=== PATIENT | female | born 1965 | race Caucasian/White ===

== ENCOUNTER 2017-10-02 14:30 | Outpatient (RCR) | payer MEDICARE, MEDICAID ==
[~2017-10-02 14:30] MED LIST: AUG875 PO; CAR200 PO; MELO-150 PO; [UNRECOGNIZED DRUG - CODE] PO
--- NOTE | 2017-10-02 16:37 | PT INITIAL EVALUATION ---
MEDICAL DIAGNOSIS: L) LE ulceration TREATMENT DIAGNOSIS: L) LE ulcerations DATE OF ONSET: 09/01/17 SUBJECTIVE: . Pt reports that she presented to Dr. Ruiz on September 01 with blisters on her L) LE d/t lymphedema. She reports that the blisters were aspirated but then she subsequently developed wounds on the L) LE. Pt reports that she has been treating the wounds at home with supplies left over from previous wound care treatments. She reports that she was diagnosed with lymphedema in 2012 and was treated that year, she has worn short stretch wraps since that time. She also has a referral for lymphedema treatment at this time , that will begin in October 2017. REHAB PROBLEM LIST: Open wounds L) LE, bilateral lymphedema changes PREVIOUS MEDICAL HISTORY: HTN, Obesity, h/o clubfeet surgery OCCUPATION: OBJECTIVE: Wound Measurements: L) lateral moreno: 2.4 cm L x 2.1 cm D x0.3 cm D L) anterior moreno: 8.5 cm L x 7.5 cm W x 0.1 cm D L) posterior medial calf: 6 cm L x 6 cm W x 0.1 cm D Circumferential Measurements-- L) LE: superior to malleoli: 34 cm mid calf: 53 cm R) LE with obvious edema as well, this was not assessed d/t extensive stockings in place. ASSESSMENT: Pt presents with short stretch bandages present on bilateral LEs, she reports that she has worn these everyday since 2012. Wounds present on L) LE , with superabsorbent pads covering the ulcerations. Partial thickness breakdown present on the anterior and posterior moreno with small amounts of slough on the medial, posterior side. Deeper ulceration present on the lateral calf with increased slough. PT completed conservative, selective debridement of non-viable tissue and slough with tweezers to the depth of the subcutaneous tissue. Wound covered with calcium alginate and all wounds covered with a super absorbent pad. PT donned pt's short stretch bandages on the L) LE. Pt will benefit from skilled PT wound care to included sharps debridement as well as advanced wound care product selection and application. She will benefit from specific therapy to manage her lymphatic needs as well. Short Term Goals 1: Pt to maintain dry, clean and intact dressing between visits. 2: Wounds to demonstrate 100% granulation tissue 3: Wounds to gradually epithelialize from edges inward and demonstrate 100% closure 4: Pt to obtain proper care for bilateral lymphedema Patient's Goals: Wound healing PLAN: Patient to be seen for skilled PT wound care to included sharps debridement as well as advanced wound care product selection and [id number]/ Week for up to 90 days Thank you for this referral. If you have any questions, comments, or concerns about this report or plan, please contact me at . Blanquita Reynolds, PT, DPT MTDD
--- NOTE | 2017-10-06 13:08 | PT PLAN OF CARE ---
Physician: Dr. Ruiz Patient is being seen: Samra Soliz Therapist: Blanquita Reynolds, PT, DPT Medical Diagnosis: L) LE ulceration Treatment Diagnosis: L) LE ulcerations Date of Onset: 09/01/17 Date of Initial Evaluation: 10/02/17 Date patient was last seen: 10/02/17 Number of treatments: 1 Number of cancellations/No shows:1 INTERVENTIONS: Pt was seen for initial wound care evaluation and treatment which included skilled sharps debridement as well as advanced wound care product selection and application. Short Term Goals 1: Pt to maintain dry, clean and intact dressing between visits. 2: Wounds to demonstrate 100% granulation tissue 3: Wounds to gradually epithelialize from edges inward and demonstrate 100% closure 4: Pt to obtain proper care for bilateral lymphedema Patient's Goals: Wound healing Status of Patient's Goals: Not met Patient Compliance: Poor Prognosis: Fair Reasons for continuing therapy: The patient was offered the only wound care appt time that would allow the patient to also receive lymphedema treatment. She reported that there was no way that she could accommodate a morning appointment time. The pt also reported that she could not arrange transportation to receive wound care until October. The patient requested that her [facility] company take care of wound care. This PT coordinated care with both [facility] and Dr. Ruiz's office in order to ensure that the patient is approved to receive [facility] wound care services. All parties were agreeable. It is planned to attempt to coordinate OP wound care services in October 2017 to allow the patient to receive lymphedema treatment as well. Thank you for this referral. If you have any questions, comments, or concerns about this report or plan, please contact me at . Blanquita Reynolds, PT, DPT [facility]
== END 2017-10-02 18:00 | disposition home or self-care (01) ==
LOC: PT 14:30
PROVIDERS: ATTEND Family Medicine
DX: L03.116 Cellulitis of left lower limb (principal); I89.0 Lymphedema, not elsewhere classified; L97.821 Non-pressure chronic ulcer of other part of left lower leg limited to breakdown of skin; I10 Essential (primary) hypertension; E66.9 Obesity, unspecified
CPT/HCPCS: 97161

== ENCOUNTER 2017-12-20 13:45 | Inpatient (IN) | payer MEDICARE, MEDICAID ==
[~2017-12-20] VITALS: Ht 167.6 cm; Wt 137.2 kg
[~2017-12-20 13:45] MED LIST changes: -DICL100G39 TOP; -GLUC1TAB35 PO; -MULT-834 PO; -[UNRECOGNIZED DRUG - OTHER] PO
--- NOTE | 2017-12-20 13:53 | ER Report ---
History and Physical Time Seen By MD: 13:53 Hx. of Stated Complaint: patient reports 6/10 right lower quadrant pain that started this morning. HPI/ROS CHIEF COMPLAINT: Abdominal pain HISTORY OF PRESENT ILLNESS: This is a 52-year-old female who presents to the emergency department via EMS for right sided abdominal pain. Patient states that at noon today she developed some right mid to lower quadrant abdominal pain that goes to the back. Patient states she's had 2 episodes of emesis and has had some nausea, no diarrhea. No aches or chills. No fevers, chest pain or shortness of breath. No rashes or headaches. No dysuria. REVIEW OF SYSTEMS: Constitutional: No fever, no chills. Eyes: No discharge. ENT: No sore throat. Cardiovascular: No chest pain, no palpitations. Respiratory: No cough, no shortness of breath. Gastrointestinal: As above. Genitourinary: No hematuria. Musculoskeletal: No back pain. Skin: No rashes. Neurological: No headache. Allergies: Coded Allergies: Penicillins (Verified Allergy, Unknown, 12/20/17) Sulfa (Sulfonamide Antibiotics) (Verified Allergy, Unknown, 12/20/17) amoxicillin (Verified Allergy, Unknown, 12/20/17) Home Meds Reported Medications Glucosamine/Msm/Chondroitin A (GLUCOSAMINE CHONDROIT MSM TAB) 1 Each Tablet, 1 TAB PO TID 12/20/17 [axo] No Conflict Check, 1 TAB PO BID "pumpkin tablet for bladder control" 12/20/17 Multivit, Iron, Min #5, Fa (STROVITE FORTE CAPLET) 1 Each Tablet, 1 EACH PO QDAY 12/20/17 Diclofenac Sodium 1% Gel (VOLTAREN 1% GEL) 100 Gm Gel..gram., 2-4 GM TOP QDAY 12/20/17 Meloxicam (Mobic) 15 Mg Tablet, 1 TAB PO BID 10/23/12 Lisinopril/Hydrochlorothiazide (Prinzide 10/12.5 Mg Tablet) 1 Tab Tablet, 1 TAB PO DAILY 10/23/12 Carbamazepine (TEGretol (OR EQUIV)) 200 Mg Tab, 200 MG PO TID 10/23/12 Discontinued Reported Medications Amoxicillin/Clavulanate K (Augmentin) 875 Mg Tab, 875 MG PO BIDBS, #20 10/23/12 Past Medical/Surgical History Patient has a past medical and surgical history of seizures, hypertension, hip dysplasia, chronic pain, wears glasses, lymphedema. Reviewed Nurses Notes: Yes Hx Smoking: No Hx Substance Use Disorder: No Hx Alcohol Use: No Constitutional Vital Sign - Last 24 Hours 12/20/17 12/20/17 12/20/17 12/20/17 13:48 13:50 14:00 14:15 Temp 97.8 Pulse 74 Resp 20 B/P (MAP) 143/84 143/84 (103) 118/96 (103) Pulse Ox 93 93 O2 Delivery Room Air 12/20/17 12/20/17 12/20/17 12/20/17 15:00 15:15 15:30 15:35 Pulse 82 70 B/P (MAP) 119/92 (101) 141/100 (114) Pulse Ox 93 98 12/20/17 12/20/17 12/20/17 12/20/17 16:00 16:05 16:30 16:35 Pulse 91 93 B/P (MAP) 128/104 (112) 136/88 (104) Pulse Ox 90 95 12/20/17 12/20/17 12/20/17 12/20/17 16:40 16:55 17:00 17:10 Pulse 94 102 87 B/P (MAP) 147/72 (97) Pulse Ox 94 87 97 Intake and Output 12/20/17 12/20/17 12/21/17 15:00 23:00 07:00 Intake Total 1000 ml Output Total 30 ml Balance -30 ml 1000 ml Physical Exam General Appearance: The patient is alert, has no immediate need for airway protection and no signs of toxicity, appears anxious. Eyes: Pupils equal and round no pallor or injection, wearing glasses. ENT, Mouth: Mucous membranes are dry, geographic tongue. Respiratory: There are no retractions, lungs are clear to auscultation. Cardiovascular: Regular rate and rhythm, systolic murmur, no clicks or rubs. Gastrointestinal: Abdomen is very round, soft and right sided abdominal pain, suprapubic pain, no masses, bowel sounds normal. No CVA tenderness. Neurological: Alert and oriented 4. Moving all extremities. No focal neural deficits. Following all commands. Skin: Warm and dry, no rashes. Musculoskeletal: Neck is supple non tender. Extremities are nontender, lymphedema bilateral lower extremities, normal for patient, Alberto wrap's to bilateral lower extremities. DIFFERENTIAL DIAGNOSIS: After history and physical exam differential diagnosis was considered for abdominal pain in a female including but not limited to ovarian cyst, pelvic inflammatory disease, ovarian torsion, urinary tract infection, kidney stone and appendicitis. Medical Decision Making Data Points Result Diagram: 12/20/17 1340 12/20/17 1340 Laboratory Hematology Test 12/20/17 13:40 12/20/17 14:55 Red Blood Count 5.17 M/uL (4.17-5.56) Mean Corpuscular Volume 88.1 fL (80.0-96.0) Mean Corpuscular Hemoglobin 29.8 pg (26.0-33.0) Mean Corpuscular Hemoglobin Concent 33.8 g/dL (32.0-36.0) Red Cell Distribution Width 14.9 % (11.5-14.5) Mean Platelet Volume 8.6 fL (7.2-11.1) Neutrophils (%) (Auto) 83.9 % (39.4-72.5) Lymphocytes (%) (Auto) 10.4 % (17.6-49.6) Monocytes (%) (Auto) 5.1 % (4.1-12.4) Eosinophils (%) (Auto) 0.0 % (0.4-6.7) Basophils (%) (Auto) 0.6 % (0.3-1.4) Nucleated RBC Relative Count (auto) 0.0 /100WBC Neutrophils # (Auto) 6.7 K/uL (2.0-7.4) Lymphocytes # (Auto) 0.8 K/uL (1.3-3.6) Monocytes # (Auto) 0.4 K/uL (0.3-1.0) Eosinophils # (Auto) 0.0 K/uL (0.0-0.5) Basophils # (Auto) 0.0 K/uL (0.0-0.1) Nucleated RBC Absolute Count (auto) 0.00 K/uL Peripheral Blood Smear No Y/N Sodium Level 139 mmol/L (137-145) Potassium Level 4.1 mmol/L (3.5-5.0) Chloride Level 100 mmol/L (98-107) Carbon Dioxide Level 24 mmol/L (22-31) Blood Urea Nitrogen 26 mg/dl (7-18) Creatinine 0.70 mg/dl (0.52-1.04) Glomerular Filtration Rate Calc > 60.0 Random Glucose 142 mg/dl (75-110) Calcium Level 9.8 mg/dl (8.4-10.2) Total Bilirubin 0.5 mg/dl (0.2-1.3) Aspartate Amino Transf (AST/SGOT) 23 U/L (0-35) Alanine Aminotransferase (ALT/SGPT) 35 U/L (0-56) Alkaline Phosphatase 148 U/L (0-126) Total Protein 8.1 gm/dl (6.3-8.2) Albumin 4.1 g/dl (3.5-5.0) Amylase Level 71 U/L (0-110) Lipase 77 U/L (23-300) Urine Color Yellow Urine Clarity Cloudy Urine pH 8.0 pH (4.8-9.5) Urine Specific [place] 1.017 Urine Protein 30 mg/dL (NEGATIVE) Urine Glucose (UA) Negative mg/dL (NEGATIVE) Urine Ketones Negative mg/dL (NEGATIVE) Urine Blood Large (NEGATIVE) Urine Nitrite Positive (NEGATIVE) Urine Bilirubin Negative (NEGATIVE) Urine Urobilinogen Negative mg/dL (0.2-1.9) Urine Leukocyte Esterase Trace (NEGATIVE) Urine RBC 27 /HPF (0-2/HPF) Urine WBC 14 /HPF (0-5/HPF) Urine Squamous Epithelial Cells None /LPF (NONE-FEW) Urine Bacteria Negative /HPF (NONE-FEW) Urine Mucus Few /HPF (NONE-FEW) Chemistry Test 12/20/17 13:40 12/20/17 14:55 White Blood Count 7.9 k/uL (4.5-11.0) Red Blood Count 5.17 M/uL (4.17-5.56) Hemoglobin 15.4 g/dL (12.0-16.0) Hematocrit 45.5 % (34.0-47.0) Mean Corpuscular Volume 88.1 fL (80.0-96.0) Mean Corpuscular Hemoglobin 29.8 pg (26.0-33.0) Mean Corpuscular Hemoglobin Concent 33.8 g/dL (32.0-36.0) Red Cell Distribution Width 14.9 % (11.5-14.5) Platelet Count 162 K/uL (150-450) Mean Platelet Volume 8.6 fL (7.2-11.1) Neutrophils (%) (Auto) 83.9 % (39.4-72.5) Lymphocytes (%) (Auto) 10.4 % (17.6-49.6) Monocytes (%) (Auto) 5.1 % (4.1-12.4) Eosinophils (%) (Auto) 0.0 % (0.4-6.7) Basophils (%) (Auto) 0.6 % (0.3-1.4) Nucleated RBC Relative Count (auto) 0.0 /100WBC Neutrophils # (Auto) 6.7 K/uL (2.0-7.4) Lymphocytes # (Auto) 0.8 K/uL (1.3-3.6) Monocytes # (Auto) 0.4 K/uL (0.3-1.0) Eosinophils # (Auto) 0.0 K/uL (0.0-0.5) Basophils # (Auto) 0.0 K/uL (0.0-0.1) Nucleated RBC Absolute Count (auto) 0.00 K/uL Peripheral Blood Smear No Y/N Glomerular Filtration Rate Calc > 60.0 Calcium Level 9.8 mg/dl (8.4-10.2) Total Bilirubin 0.5 mg/dl (0.2-1.3) Aspartate Amino Transf (AST/SGOT) 23 U/L (0-35) Alanine Aminotransferase (ALT/SGPT) 35 U/L (0-56) Alkaline Phosphatase 148 U/L (0-126) Total Protein 8.1 gm/dl (6.3-8.2) Albumin 4.1 g/dl (3.5-5.0) Amylase Level 71 U/L (0-110) Lipase 77 U/L (23-300) Urine Color Yellow Urine Clarity Cloudy Urine pH 8.0 pH (4.8-9.5) Urine Specific Hull 1.017 Urine Protein 30 mg/dL (NEGATIVE) Urine Glucose (UA) Negative mg/dL (NEGATIVE) Urine Ketones Negative mg/dL (NEGATIVE) Urine Blood Large (NEGATIVE) Urine Nitrite Positive (NEGATIVE) Urine Bilirubin Negative (NEGATIVE) Urine Urobilinogen Negative mg/dL (0.2-1.9) Urine Leukocyte Esterase Trace (NEGATIVE) Urine RBC 27 /HPF (0-2/HPF) Urine WBC 14 /HPF (0-5/HPF) Urine Squamous Epithelial Cells None /LPF (NONE-FEW) Urine Bacteria Negative /HPF (NONE-FEW) Urine Mucus Few /HPF (NONE-FEW) Urinalysis Test 12/20/17 14:55 Urine Color Yellow Urine Clarity Cloudy Urine pH 8.0 pH (4.8-9.5) Urine Specific Hull 1.017 Urine Protein 30 mg/dL (NEGATIVE) Urine Glucose (UA) Negative mg/dL (NEGATIVE) Urine Ketones Negative mg/dL (NEGATIVE) Urine Blood Large (NEGATIVE) Urine Nitrite Positive (NEGATIVE) Urine Bilirubin Negative (NEGATIVE) Urine Urobilinogen Negative mg/dL (0.2-1.9) Urine Leukocyte Esterase Trace (NEGATIVE) Urine RBC 27 /HPF (0-2/HPF) Urine WBC 14 /HPF (0-5/HPF) Urine Squamous Epithelial Cells None /LPF (NONE-FEW) Urine Bacteria Negative /HPF (NONE-FEW) Urine Mucus Few /HPF (NONE-FEW) EKG/Imaging Imaging Location: [facility] - [place] Patient: Samra Soliz : 1965 Visit/Account:[id number] Date of Sevice: 12/20/2017 CT abdomen and pelvis with IV contrast Indication: Right-sided abdominal pain. Comparison: None available. . Technique: Axial CT images were obtained through the abdomen and pelvis during injection of nonionic iodinated intravenous contrast. Reformatted coronal and sagittal images were also obtained. One of the following dose optimization techniques was utilized in the performance of this exam: Automated exposure control; adjustment of the mA and/ or kV according to the patient's size; or use of an iterative reconstruction technique. Specific details can be referenced in the facility's radiology CT exam operational policy. Contrast: 100 ml of Isovue-370 IV contrast. Findings: Lower lung arceo: Limited views lower lung field are unremarkable. Liver: No focal parenchymal abnormality of the liver. Biliary: Gallbladder appears unremarkable as well as the intra and extra hepatic biliary system. Pancreas: Normal appearance. Spleen: Normal appearance. Adrenal glands: Unremarkable. Kidneys / retroperitoneum: Both kidneys show several stones in the collecting system. The largest on left is 7 mm and right 6 mm. The right kidney does show mild hydronephrosis and perinephric stranding due to a proximal right ureteral stone measuring 4.5 mm. The remaining right ureter and the left ureter are unremarkable. One of the left renal stones in the proximal renal pelvis. The kidneys show no discrete lesions. Bowel / peritoneum / mesenteries: Sigmoid colon shows a few diverticula without pericolonic inflammation. The remaining gastrointestinal tract visualized, including the appendix, within normal limits. Stomach is unremarkable. No free air, free fluid, fluid collections or areas of inflammation. Small umbilical hernia containing fat. Lymph node assessment: No pathologic adenopathy identified. Pelvic structures: Appear unremarkable. Vessels: No significant atherosclerotic calcifications seen throughout a nonaneurysmal abdominal aorta and branches. Musculoskeletal / Body wall: No acute or aggressive osseous abnormality. The left proximal femur does show posttraumatic changes with mild chronic superior subluxation and significant degenerative changes. Degenerative change seen in the spine. The anterior abdominal subcutaneous fat does show several small varices. IMPRESSION: 1. There is a 4.5 mm stone in the proximal right ureter causing mild right hydronephrosis and mild nephropathy changes. 2. Both kidneys otherwise show other nonobstructing calculi. 3. Sigmoid diverticulosis without radiographic indication diverticulitis. 4. Other chronic findings as above. Report Dictated By: Cristino Alejo at 12/20/2017 3:13 PM Report E-Signed By: Cristino Alejo at 12/20/2017 3:20 PM WSN:[id number] ED Course/Re-evaluation Clinical Indication for ER IV: Hydration, IV Access ED Course The patient was admitted to room. History of physical were obtained. Differential diagnoses were considered. An IV was started. A CBC, CMP and cathetered UA were obtained. Laboratory studies unremarkable. Catheter UA borderline diagnostic for urinary tract infection and the urine was sent for culture, she is not complaining of dysuria. I did review this with Dr. Pedersen as noted below he said go ahead and hold off on treating the patient with antibiotics until the culture comes back. A CT of the abdomen pelvis revealed a 4.5 mm kidney stone in the right ureter with several stones in the kidneys. The right kidney showing hydronephrosis. Patient was given 30 mg IV Toradol. A 1 L normal saline bolus. Patient was also given 50 g IV fentanyl. She did have some relief, however the pain did return, she was nervous about pain control as well her caregiver, therefore I did contact Dr. Turpin who has agreed to admit the patient with Dr. Cohen as noted below, for pain control. I did review the results and the plan with the patient and her caregiver. They are in agreement with this plan of care. 12/20/2017 3:35:37 pm I did speak with Dr. Pedersen the urologist monitoring coordinator today regarding the patient's case he feels if her pain is tolerable we can send her home and have her follow-up with him in his office this week. 12/20/2017 4:25:08 pm I did speak with Dr. Pedersen again regarding the patient' s case. He was concerned that her medical problems with need a hospitalist consultation and admission. He is going to call Dr. Cohen for an admission. I did review this with the patient. Patient's and her caregiver at the bedside and are concerned that has her pain is coming back as it is now that they will be able to manage the pain. There is also concerned that she'll have some mobility issues related to the pain she does have lymphedema to the lower extremities which also inhibits her mobility. Dr. Reveles has agreed to admit the patient. Dr. Pedersen will consult with Dr. Cohen the hospitalist on-call. Patient will be admitted to medical surgical unit for renal calculi and intractable pain. Decision to Disposition Date: Dec 20, 2017 Decision to Disposition Time: 16:10 Depart Departure Latest Vital Signs Vital Signs Date Time Temp Pulse Resp B/P (MAP) Pulse Ox O2 Delivery O2 Flow Rate FiO2 12/20/17 17:10 87 97 12/20/17 17:00 147/72 (97) 12/20/17 13:48 97.8 20 Room Air Impression: Primary Impression: Renal calculus, right Additional Impression: Intractable pain Condition: Improved Disposition: Admitted from ER Referrals: BURKE SHANE DO (PCP) Patient Instructions: Kidney Stones (ED) Additional Instructions: Drink plenty of fluids. Get plenty of rest. Follow up with Dr. Reveles this week for reevaluation. Continue taking your regular medications. Continue taking your NSAID as directed, for additional pain relief take 1000mg of Tylenol up to three times a day. Take the Toradol as needed for your pain. May return to the ED as for worsening symptoms or any other concerns. Problem Qualifiers MONROE SWARTZ METER REPAIRER-BC Dec 20, 2017 13:53
[2017-12-20] MEDS ORDERED: DICL100G39 TOP (13:56)
[2017-12-20] MEDS ORDERED: fentaNYL CITR 100 MCG/2 ML AMP IVP ONE (14:05)
[2017-12-20] MEDS ORDERED: ONDANSETRON 4 MG/2 ML VIAL IVP ONE (14:05)
[2017-12-20] MEDS ORDERED: EMS NS 0.9%(*) 1000 ML BAG 1,000 ML IV ONE (14:10)
[2017-12-20 14:13] LABS: PLATELET COUNT, AUTOMATED 162 K/uL (150-450)
[2017-12-20] MEDS ORDERED: IOPAMIDOL 76% 100 ML INFUS BTL 100 ML ONE (14:30)
[2017-12-20] MEDS ORDERED: KETOROLAC 30 MG/ML VIAL IVP ONE (15:15)
--- NOTE | 2017-12-20 15:25 | RADIOLOGY IMAGING REPORT ---
[place] [facility] [place] Samra Soliz : 1965 MR: [id number] V: [id number] EXAM DATE: ORDERING PHYSICIAN: MONROE SWARTZ TECHNOLOGIST: [place] [facility] [place]: Samra Soliz : 1965 Visit/Account:[id number] Date of Sevice: 12/20/2017 CT abdomen and pelvis with IV contrast Indication: Right-sided abdominal pain. Comparison: None available. . Technique: Axial CT images were obtained through the abdomen and pelvis during injection of nonioni c iodinated intravenous contrast. Reformatted coronal and sagittal images were also obtained. One of the following dose optimization techniques was utilized in the performance of this exam: Autom ated exposure control; adjustment of the mA and/or kV according to the patient's size; or use of an i terative reconstruction technique. Specific details can be referenced in the facility's radiology C T exam operational policy. Contrast: 100 ml of Isovue-370 IV contrast. Findings: Lower lung arceo: Limited views lower lung field are unremarkable. Liver: No focal parenchymal abnormality of the liver. Biliary: Gallbladder appears unremarkable as well as the intra and extra hepatic biliary system. Pancreas: Normal appearance. Spleen: Normal appearance. Adrenal glands: Unremarkable. Kidneys / retroperitoneum: Both kidneys show several stones in the collecting system. The largest on left is 7 mm and right 6 mm. The right kidney does show mild hydronephrosis and perinephric stranding due to a proximal right ureteral stone measuring 4.5 mm. The remaining right ureter and the left ure ter are unremarkable. One of the left renal stones in the proximal renal pelvis. The kidneys show no discrete lesions. Bowel / peritoneum / mesenteries: Sigmoid colon shows a few diverticula without pericolonic inflammat ion. The remaining gastrointestinal tract visualized, including the appendix, within normal limits. S tomach is unremarkable. No free air, free fluid, fluid collections or areas of inflammation. Small umbilical hernia containin g fat. Lymph node assessment: No pathologic adenopathy identified. Pelvic structures: Appear unremarkable. Vessels: No significant atherosclerotic calcifications seen throughout a nonaneurysmal abdominal aort a and branches. Musculoskeletal / Body wall: No acute or aggressive osseous abnormality. The left proximal femur does show posttraumatic changes with mild chronic superior subluxation and significant degenerative bailey es. Degenerative change seen in the spine. The anterior abdominal subcutaneous fat does show several small varices. IMPRESSION: 1. There is a 4.5 mm stone in the proximal right ureter causing mild right hydronephrosis and mild ne phropathy changes. 2. Both kidneys otherwise show other nonobstructing calculi. 3. Sigmoid diverticulosis without radiographic indication diverticulitis. 4. Other chronic findings as above. Report Dictated By: Cristino Alejo at 12/20/2017 3:13 PM Report E-Signed By: Cristino Alejo at 12/20/2017 3:20 PM WSN:[id number]
[2017-12-20] MEDS ORDERED: ONDANSETRON 4 MG/2 ML VIAL IVP PRN (17:50)
[2017-12-20] MEDS ORDERED: MEPERIDINE 10 MG/ML 30 ML PCA IVP PRN (17:50)
[2017-12-20] MEDS ORDERED: NALOXONE HCL 0.4 MG/ML VIAL IVP PRN (17:50)
[2017-12-20 17:52] VITALS: BP 130/64
[2017-12-20] MEDS ORDERED: TAMSULOSIN HCL 0.4 MG CAP PO ONE (18:05)
[2017-12-20] MEDS: NS(*) 0.9% 1000 ML BAG 1,000 ML IV PRN (18:16)
[2017-12-20] MEDS ORDERED: GLUC1TAB35 PO (18:35)
[2017-12-20] MEDS ORDERED: MULT-834 PO (18:35)
[2017-12-20] MEDS ORDERED: [UNRECOGNIZED DRUG - OTHER] PO (18:35)
[2017-12-20] MEDS ORDERED: KETOROLAC 15 MG/ML VIAL IVP PRN (19:30)
[2017-12-20] MEDS ORDERED: ENALAPRILAT 1.25 MG/ML VIAL IVP PRN (19:30)
--- NOTE | 2017-12-20 19:41 | Hospitalist Consultation ---
History of Present Illness Requesting Physician Slava Reason for Consult Medication management History of Present Illness 52yo female with a h/o LE lymphedema, seizures and HTN who was admitted for right sided abdominal pain and found to have a 4.5mm ureteral stone on the right causing mild hydronephrosis and mild nephropathy changes. When she got up to the floor she had a fever to 103.8 degrees. She denies cough and any skin changes. She had her LE leg wraps done this morning. She reports a chronic erythematous area on the left moreno. She denies a h/o CAD, COPD, CHF, asthma. She denies chest pain with activity, but she is very sedentary (i.e. uses a lift chair for stairs). She has never smoked. History Problems: (1) HTN (hypertension) Status: Chronic (2) Seizure disorder Status: Chronic (3) Lymphedema of both lower extremities Status: Chronic (4) History of foot surgery (5) Hip dysplasia Home Meds Reported Medications Glucosamine/Msm/Chondroitin A (GLUCOSAMINE CHONDROIT MSM TAB) 1 Each Tablet, 1 TAB PO TID 12/20/17 [axo] No Conflict Check, 1 TAB PO BID "pumpkin tablet for bladder control" 12/20/17 Multivit, Iron, Min #5, Fa (STROVITE FORTE CAPLET) 1 Each Tablet, 1 EACH PO QDAY 12/20/17 Diclofenac Sodium 1% Gel (VOLTAREN 1% GEL) 100 Gm Gel..gram., 2-4 GM TOP QDAY 12/20/17 Meloxicam (Mobic) 15 Mg Tablet, 1 TAB PO BID 10/23/12 Lisinopril/Hydrochlorothiazide (Prinzide 10/12.5 Mg Tablet) 1 Tab Tablet, 1 TAB PO DAILY 10/23/12 Carbamazepine (TEGretol (OR EQUIV)) 200 Mg Tab, 200 MG PO TID 10/23/12 Discontinued Reported Medications Amoxicillin/Clavulanate K (Augmentin) 875 Mg Tab, 875 MG PO BIDBS, #20 10/23/12 Allergies: Coded Allergies: Penicillins (Verified Allergy, Unknown, 12/20/17) Sulfa (Sulfonamide Antibiotics) (Verified Allergy, Unknown, 12/20/17) amoxicillin (Verified Allergy, Unknown, 12/20/17) Other Social/Family Hx No tobacco or alcohol use. Hx Smoking: No Hx Alcohol Use: No Hx Substance Use Disorder: No Review of Systems All Systems Reviewed/Normal: Yes, Except as Noted Exam Vital Signs Vital Signs Date Time Temp Pulse Resp B/P (MAP) Pulse Ox O2 Delivery O2 Flow Rate FiO2 12/20/17 17:52 103.2 107 18 130/64 (86) 97 Nasal Cannula 1.0 General Appearance: Alert, Awake, No Acute Distress (She seems a bit sleepy) Neuro: No Gross deficits Eyes: PERRLA Cardiovascular: Other (tachy, regular) Respiratory: Clear to Auscultation GI: Abd Soft and Non-Tender : No CVA Tenderness Extremities: Edema (No pitting edema, but legs are diffusely edematous from shins to feet. Left moreno has about a 10cm in width dark erythematous area that wraps around the moreno. It is warm, but she doesn't report much tenderness. There are some wounds on the shins with clear drainage.) Medical Decision Making Data Points Result Diagram: 12/20/17 1340 12/20/17 1340 Item Value Date Time Neutrophils (%) (Auto) 83.9 % H 12/20/17 1340 Lymphocytes (%) (Auto) 10.4 % L 12/20/17 1340 Monocytes (%) (Auto) 5.1 % 12/20/17 1340 Eosinophils (%) (Auto) 0.0 % L 12/20/17 1340 Random Glucose 142 mg/dl H 12/20/17 1340 Calcium Level 9.8 mg/dl 12/20/17 1340 Total Bilirubin 0.5 mg/dl 12/20/17 1340 Aspartate Amino Transf (AST/SGOT) 23 U/L 12/20/17 1340 Alanine Aminotransferase (ALT/SGPT) 35 U/L 12/20/17 1340 Alkaline Phosphatase 148 U/L H 12/20/17 1340 Urine Nitrite Positive H 12/20/17 1455 Urine Blood Large 12/20/17 1455 Urine Bilirubin Negative 12/20/17 1455 Urine Urobilinogen Negative mg/dL 12/20/17 1455 Urine Leukocyte Esterase Trace H 12/20/17 1455 Urine RBC 27 /HPF 12/20/17 1455 Urine WBC 14 /HPF 12/20/17 1455 Urine Squamous Epithelial Cells None /LPF 3/4/18 1455 Urine Bacteria Negative /HPF 12/20/17 1455 Urine Mucus Few /HPF 12/20/17 1455 EKG / Imaging EKG Interpretation Sinus tachycardia with diffuse T flattening. Poor R wave progression c/w ant/ sep SC vs lead placement. No previous to compare. Imaging CXR - No acute abnormalities. No previous to compare. Assessment and Plan Problems: (1) Pre-op evaluation Status: Acute Assessment & Plan: She is a low to moderate risk for cardiac complications secondary to age and deconditioned status. She has no worrisome symptoms or signs. No further testing needed. She is a low risk for pulmonary complications. She is a low to moderate risk for bleeding complications secondary to recent NSAID use. (2) Renal calculus, right Status: Acute Assessment & Plan: She has a ureteral stone causing mild hydronephrosis and has a fever to 103.8. Because of concern of infection, she is going to have a stent placed. She is to have cultures blood cultures drawn and Rocephin started. BP/P are stable. (3) Lymphedema of both lower extremities Status: Chronic Assessment & Plan: Her left moreno has a dark erythematous area that is warmer than other areas. The area was outlined. She reports that it is chronic. She has a number of wounds that are having clear drainage. Will ask PT to evaluate for wound care instructions. Because of the previous MRSA wound infection from 2012, will start Vancomycin. There are no draining areas that are concerning for infection, so will not put in contact isolation or culture. (4) Seizure disorder Status: Chronic Assessment & Plan: Continue Tegretol. (5) HTN (hypertension) Status: Chronic Assessment & Plan: Hold HCTZ/Lisinopril and use enalaprilat prn. Copies to: BURKE SHANE DO; IZZY CARRINGTON MD Venous Thromboembolism Antithrombotics Is Pt On Any Antithrombotics?: No Exam Sepsis Risk: No Definite Risk KANDY JIMENEZ MD Dec 20, 2017 19:41
--- NOTE | 2017-12-20 20:17 | EKG ---
FACILITY: [facility] PATIENT NAME: BRANDO GRAHAM : [id number] MR: [id number] V: [id number] EXAM DATE: ORDERING PHYSICIAN: KANDY JIMENEZ TECHNOLOGIST: Joey Duran Reason : Blood Pressure : / mmHG Vent. Rate : 109 BPM Atrial Rate : 109 BPM P-R Int : 122 ms QRS Dur : 092 ms QT Int : 336 ms P-R-T Axes : 036 051 036 degrees QTc Int : 452 ms Sinus tachycardia Low voltage QRS Possible Anterolateral infarct , age undetermined Diffuse, non-specific, T flattening No previous ECGs available Confirmed by KANDY JIMENEZ ([id number]) on 12/21/2017 7:32:33 AM Referred By: Confirmed By:KANDY JIMENEZ
[2017-12-20] MEDS ORDERED: ROCURONIUM BROM 10 MG/ML 10 ML ONE (20:19)
[2017-12-20] MEDS ORDERED: PROPOFOL EMUL(*) 10MG/ML 20 ML 20 ML ONE (20:19)
[2017-12-20] MEDS ORDERED: DEXAMETHASONE SOD 4 MG/ML VIAL ONE (20:19)
[2017-12-20] MEDS ORDERED: LIDOCAINE MPF 1% 5 ML VIAL ONE (20:19)
[2017-12-20] MEDS ORDERED: SUGAMMADEX SOD 200 MG/2 ML SDV ONE (20:19)
[2017-12-20] MEDS ORDERED: ONDANSETRON 4 MG/2 ML VIAL ONE (20:19)
[2017-12-20] MEDS ORDERED: fentaNYL CITR 100 MCG/2 ML AMP ONE (20:22)
[2017-12-20] MEDS: cefTRIAXone 2 GM VIAL IVP SCH (20:30)
[2017-12-20] MEDS ORDERED: NORMOSOL R SOLN(*) 1000 ML BAG 1,000 ML IV ONE (20:37)
[2017-12-20] MEDS ORDERED: FAMOTIDINE(*) 20MG/50ML PREMIX 50 ML IVPB ONE (20:37)
[2017-12-20] MEDS ORDERED: VANCOMYCIN IVPB ONE ×2 (21:00→23:05)
[2017-12-20] MEDS ORDERED: NS 0.9% IVPB ONE ×2 (21:00→23:05)
[2017-12-20] MEDS: carBAMazepine 200 MG TAB PO SCH ×2 (21:01→23:46)
--- NOTE | 2017-12-20 21:07 | RADIOLOGY IMAGING REPORT ---
FACILITY: [facility] PATIENT NAME: Samra Soliz : 1965 MR: [id number] V: [id number] EXAM DATE: ORDERING PHYSICIAN: KANDY JIMENEZ [place]CHNOLOGIST: [place] [facility] [place] : 1965 Visit/Account:[id number] Date of Sevice: 12/20/2017 PORTABLE CHEST: Indication: Fever. Technique: A single frontal film was obtained. Comparison: None. Skeletal and soft tissue structures: There are severe degenerative changes in the shoulders. On the r ight side, there appears to be anterior dislocation of the humeral head. Chronic degenerative changes are also noted in the thoracic spine. Heart and mediastinum: Within normal limits. Lung arceo: Well-expanded. No focal consolidation or volume loss. Pleural spaces: Unremarkable. Impression: No acute process is identified in the lung arceo. There appears to be anterior dislocati on of the right shoulder. Further clinical correlation is recommended. Report Dictated By: Evens Way MD at 12/20/2017 8:59 PM Report E-Signed By: Evens Way MD at 12/20/2017 9:03 PM WSN:[id number]
--- NOTE | 2017-12-20 22:14 | RADIOLOGY IMAGING REPORT ---
FACILITY: [facility] PATIENT NAME: Samra Soliz : 1965 MR: [id number] V: [id number] EXAM DATE: ORDERING PHYSICIAN: SHANIA CEDILLO TECHNOLOGIST: Location: [facility] Patient: Samra Soliz : 1965 Visit/Account:[id number] Date of Sevice: 12/20/2017 OR retrograde study: Indication: Right ureteral calculus. Technique: 13 images were submitted. Fluoroscopy time was 14 seconds. Comparison: CT scan from earlier the same day. Findings: The initial gun mechanic images demonstrate residual contrast in the right intrarenal collecting s tructures and right ureter from the earlier CT scan. There is moderate degenerative disc disease and scoliosis in the lower lumbar spine. There is severe dysplasia of the left hip. Subsequent images demonstrate a cystoscope in place, with a catheter and contrast in the right ureter and kidney. The final images demonstrate a right ureteral stent in satisfactory orientation. Refer to the operative report for full details. Impression: As above. Report Dictated By: Evens Way MD at 12/20/2017 10:06 PM Report E-Signed By: Evens Way MD at 12/20/2017 10:11 PM WSN:[id number]
[2017-12-20 22:25] VITALS: BP 84/46
[2017-12-20 22:45] VITALS: BP 79/37
[2017-12-20] MEDS ORDERED: NS(*) 0.9% 500 ML BAG 500 ML IV ONE ×2 (22:45→23:45)
[2017-12-20 23:15] VITALS: BP 83/49
[2017-12-20] MEDS ORDERED: MAG HYD/AL HYD/SIMETH 30ML UDC PO PRN (23:20)
[2017-12-20] MEDS ORDERED: OXYBUTYNIN CHL XL 5 MG TABCR PO PRN (23:20)
[2017-12-20 23:30] VITALS: BP 76/42
[2017-12-20] MEDS ORDERED: LEVOFLOXACIN/D5W*500 MG/100 ML 100 ML IVPB SCH (23:30)
[2017-12-20 23:45] VITALS: BP 81/46
[2017-12-21] VITALS (95 sets, daily range): BP systolic 68–125; BP diastolic 36–83
--- NOTE | 2017-12-21 03:25 | HISTORY AND PHYSICAL ---
DATE OF ADMISSION: December 20, 2017 CHIEF COMPLAINT Right flank pain secondary to renal colic. HISTORY OF PRESENT ILLNESS The patient is a 52-year-old white female who presented to the emergency room after sudden onset of right flank pain with associated nausea and vomiting. She was evaluated in the emergency room with a CT scan which revealed a 5 x 4 mm stone at the right proximal ureter with some mild hydronephrosis above this. She also had small perinephric edematous changes consistent with obstruction. In addition, she was noted to have 2 stones on the right lower pole and 2 on the left lower pole, the largest measuring 7 mm. The patient is now admitted for PROJECT INTERN pain control and IV fluid hydration with possible urologic intervention as indicated. 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 * Chronic bilateral lower extremity edema, left greater than right, with a history of MRSA on left lower extremity in 2012. * Hypertension. * Seizure disorder. * Urge incontinence. PAST SURGICAL HISTORY * Bilateral club foot repair. * Left wrist surgery. * Left eye surgery. ALLERGIES PENICILLIN, AMOXICILLIN, SULFA. CURRENT MEDICATIONS * Tegretol. * Voltaren. * Hydrochlorothiazide. * Lisinopril. * Mobic. SOCIAL HISTORY The patient lives in [place], [place], and is disabled. FAMILY HISTORY Notable for rheumatoid arthritis. REVIEW OF SYSTEMS The patient denies fevers or chills, gross hematuria, prior kidney stones, headaches, change in bowel habits, shortness of breath, productive cough, or chest pain. PHYSICAL EXAMINATION GENERAL: The patient is a 52-year-old, white, slightly obese female examined in the hospital room in her bed. HEENT: Normocephalic, atraumatic. She has corrective eyewear. Oropharynx is clear. CHEST: Normal with no wheezing. CARDIOVASCULAR: Regular rate and rhythm. ABDOMEN: Soft, obese. No masses are palpated. : Deferred. She does have an incontinent pad. EXTREMITIES: Both lower extremities are wrapped in clean gauze and are dry. Bilateral upper extremities reveal a dystrophic wrist. NEUROLOGIC: She is alert and oriented x3 and follows commands, grossly nonfocal. ASSESSMENT * 52-year-old white female with right renal colic from a 4 x 5 mm proximal renal stone with bilateral stones in both kidneys. She also has a history of urge incontinence. PLAN We will admit the patient for IV hydration, PROJECT INTERN pain control with possible urologic intervention as indicated. MTDD
[2017-12-21] MEDS: NS(*) 0.9% 1000 ML BAG 1,000 ML IV PRN ×4 (05:07→20:06)
[2017-12-21 05:46] LABS: PLATELET COUNT, AUTOMATED 77 K/uL (150-450)
--- NOTE | 2017-12-21 06:23 | OPERATIVE REPORT 1 ---
EVENT DATE: December 20, 2017 SURGEON: Abdoulaye Pedersen MD ANESTHESIOLOGIST: Natalio Rogers MD ANESTHESIA: General. PREOPERATIVE DIAGNOSIS Right proximal ureteral calculi with urinary tract infection. POSTOPERATIVE DIAGNOSIS Right proximal ureteral calculi with urinary tract infection. PROCEDURE PERFORMED 1. Cystoscopy. 2. Right retrograde pyelogram. 3. Right internal double J ureteral stent placement. ESTIMATED BLOOD LOSS Minimal. IV FLUIDS Crystalloid. DRAINS 6 Gabonese x 26 cm Contour stent on right and 16 Gabonese Murray catheter. PATHOLOGY Cold cup biopsy in 3 specimens to Pathology for permanent analysis. COMPLICATIONS None. CONDITION Patient taken to recovery room awake and in stable condition. STATEMENT OF MEDICAL NECESSITY Patient is a 52-year-old white female who presented to the emergency room on the morning of December 20, 2017 with the sudden onset of right flank pain with associated nausea and vomiting. At that time, a CT scan was performed, which revealed her to have a 4 x 5 mm proximal ureteral stone with proximal hydronephrosis of the right system. She was also noted to have two stones on the right lower pole and two stones on the left lower pole as well as a renal pelvis stone. Her urinalysis revealed several white blood cells but no bacteria. She was afebrile in the emergency room, and she had a white count of 7900 with a mild left shift. The patient was admitted to the hospital and started on intravenous hydration and BIAS CUTTER for pain control. However, she spiked a temperature of 103.2. She has no other obvious source of infection, and she is therefore being brought to the operating room for planned urgent decompression of her right system. DESCRIPTION OF OPERATION PERFORMED Patient was brought to the operating room, and after general anesthetic was obtained, she was placed in the dorsal lithotomy position and prepped and draped in usual sterile manner. Anesthetic cystoscopy was performed. Fluoroscopic coater operator insulation board imaging revealed retained contrast in the right collecting system down the mildly dilated proximal ureter for approximately 3 cm. She was also noted to have some mild contrast retained in the bladder and even in the right distal ureter, which appeared nondilated. At this point, her bladder was inspected. She was noted to have some diffuse mucosal mild erythema as well as having a significant amount of free floating amorphous debris. The debris was irrigated from the bladder. The scope was then reintroduced. The right ureteral orifice was cannulated with a 6 Gabonese open end access catheter, which advanced easily up to the level of the proximal ureter. A retrograde pyelogram was performed using a mixture of contrast material and KY type lube. By my intraoperative interpretation, this film showed a mildly dilated ureter. Contrast did advance beyond the area of the stone up into the renal pelvis. There was no evidence of extravasation or other anomalies. At this point, the access catheter was advanced up to the point of the stone, and a sensor wire was advanced in the lumen of the access catheter, and under gentle fluoroscopic imaging, was manipulated past the stone into the upper pole calyx. The access catheter was advanced over the wire into the renal pelvis and then removed. The wire was then used to place a 6 Gabonese x 26 cm Contour stent. She was noted to have good curling in the bladder by direct vision, and appeared to have adequate curl in the upper pole calyx on fluoroscopic imaging as well. However, this was somewhat difficult to ascertain from the retained contrast in the system. At this point, a Murray catheter was placed with 10 mL in the balloon. A B and O suppository was given per rectally. At the conclusion of the case, she was awakened in the operating room and taken to the recovery area in stable condition. She will be admitted to the floor and started on broad spectrum antibiotics pending urine cultures, and will have the hospitalist continue to see the patient for her other medical issues. TING
[2017-12-21] MEDS ORDERED: ENOXAPARIN 40 MG/0.4ML SYR SC SCH (09:00)
--- NOTE | 2017-12-21 09:08 | Antimicrobial Stewardship ---
Antimicrobial Time Out Antimicrobial Stewardship MD Service: Hospitalist (Medical Management Consult - Primary Service is Urology) Indications: Other (Pyelonephritis/UTI) Antimicrobial Used 12/20: Ceftriaxone 2g IV daily - today is day 2 of therapy Start Date: Dec 20, 2017 Culture Results: Yes (12/20/17: Blood Cx (NGTD), Urine Cx - GNR- per lab proteus , DEEP/ID pending) Eligible for PO Conversion Eligable for PO Conversion: No Reviewed with Provider Reviewed w/ Provider on Rounds: Yes Date Reviewed w/ Provider: Dec 21, 2017 Comments Comments 52 F who presented to the ED with RLQ and flank/back pain, emesis, nausea found to have Pyelonephritis/UTI with kidney stones Tmax 103, BP hypotensive (90s/40s)- MAP upper 50s to low 60s, WBC elevated at 12.7, plts dropped to 77k (no enoxaparin or anti-platelets- could be secondary to carbamazepine), lactate elevated a 2.4-->1.7, Scr wnl, LFTs slightly elevated (likely related carbamazepine + ceftriaxone) UA consistent with UTI/Pyelo Blood Cx - NGTD Urine Cx - Growing GNR, appears to be Proteus per lab, DEEP and ID set up for tomorrow 1. UTI/Pyelonephritis secondary to kidney stones - s/p stent placement, most likely growing proteus, ID/Sens pending, on Ceftriaxone + Vancomycin. Plan to stop Vancomycin. 2. Lymphedema/redness- chronic erythema on L moreno, less likely to be source of infection (does have hx of MRSA), will stop vancomycin and d/c trough Anny Muñiz, PharmD, BCOP ANNY MUÑIZ Dec 21, 2017 09:08
[2017-12-21] MEDS ORDERED: NOREPINE BITAR* 4 MG/4 ML AMP 4 MG in D5W(*) 250 ML BAG 246 ML IV PRN (09:25)
[2017-12-21] MEDS: DOCUSATE SODIUM 100 MG CAP PO SCH ×2 (09:27→20:30)
[2017-12-21] MEDS: carBAMazepine 200 MG TAB PO SCH (09:27)
--- NOTE | 2017-12-21 10:27 | Hospitalist Progress Note ---
Subjective Progress Notes Subjective This patient was admitted for sepsis secondary to urinary infection. She underwent ureteral stent placement yesterday. Patient Complains of: Cardiovascular: No: Chest Pain Respiratory: No: Shortness of Breath Physical Exam Vital Signs Date Time Temp Pulse Resp B/P (MAP) Pulse Ox O2 Delivery O2 Flow Rate FiO2 12/21/17 09:00 85 23 84/49 (61) 99 Nasal Cannula 3.0 12/21/17 08:00 100.0 Intake and Output 12/22/17 07:00 Output Total 75 ml Balance -75 ml Output Urine Total 75 ml Neuro: No Gross deficits Eyes: PERRLA Cardiovascular: Regular Rate and Rhythm Respiratory: Clear to Auscultation Result Diagram: 12/21/17 0540 12/21/17 0512 Item Value Date Time Lactate 1.7 mmol/L 12/21/17 0305 Item Value Date Time Blood Culture - Final Resulted 12/20/172030 Blood Assessment and Plan Problems: (1) Renal calculus, right Status: Acute Assessment & Plan: She did have an obstructing stone on the right. Please see Dr. Pedersen's notes for management. (2) Pyelonephritis Assessment & Plan: She does have positive blood cultures for a Proteus species. She also has an elevated WBC and presented with fever. She was started on empiric treatment with ceftriaxone and vancomycin. The vancomycin was discontinued today. (3) Septic shock Assessment & Plan: She did have an elevated WBC and lactic acidosis. The lactate has improved, but she has now developed hypotension. We are treating her with fluid resuscitation and will also be starting vasopressor support with norepinephrine. We will start stress dose hydrocortisone as well. (4) Lymphedema of both lower extremities Status: Chronic Assessment & Plan: This appears to be mostly chronic. She does have an elevated BNP, but it doesn't appear that she has ever had an echocardiogram. One has been ordered. (5) Seizure disorder Status: Chronic Assessment & Plan: She is on chronic treatment with Tegretol. (6) HTN (hypertension) Status: Chronic Assessment & Plan: She is on chronic treatment with hydrochlorothiazide and lisinopril. Both medications have been on hold. (7) Body mass index (BMI) of 40.0 to 44.9 in adult Exam Sepsis Risk: No Definite Risk Problem Qualifiers (1) HTN (hypertension): Hypertension type: essential hypertension Qualified Codes: I10 - Essential ( primary) hypertension VERENICE ROMAN DO Dec 21, 2017 10:27
[2017-12-21] MEDS: HYDROCORTISONE 100 MG/2 ML IVP SCH ×2 (10:52→16:33)
[2017-12-21] MEDS ORDERED: VANCOMYCIN(*) 1 GM VIAL 2 GM in NS(*) 0.9% 250 ML BAG 250 ML IVPB SCH (11:00)
--- NOTE | 2017-12-21 13:01 | Post Operative Progress Note ---
Post Operative Progress Note Date: Dec 21, 2017 Time: 13:01 Surgeon: jostin Anesthesia: local Pre-Op Diagnosis: sepsis Post-Op Diagnosis: same Procedure(s): cvc placement YANI RUBIO MD Dec 21, 2017 13:01
--- NOTE | 2017-12-21 13:21 | Medical Nutrition Therapy ---
Nutrition Anthropometrics Height (Inches): 66.00 Height (Calculated Centimeters: 167.847751 Weight (Pounds): 274 Weight (Calculated Kilograms): 124.284 Mike Nutrition Score: Very Poor Mike Nutrition Risk Score: 10 Dietary Referral Nutrition Risk Factors: Nutrition Risk Comment: Physical Findings Physical Appearance: Morbidly Obese 40+ Skin Appearance Skin Appearance: Edema Edema Location Modifier: Both Edema Location: Lower Extremity Type of Edema: Degree of Edema: Gastrointestinal Symptoms GI Symtoms: Nausea Tube Present: Bowel Sounds: Recent Bowel Pattern: Stool Characteristics: Nutritional Diagnosis Nutritional Risk Acuity 2: Sepsis Nutritional Risk Acuity 3: Nausea Nutritional Acuity: 2-Moderate Nutrition Diagnosis: Increased Nutrient Needs Nutrition Etiology: Physiological Causes Nutrition Problem/Etiology/Sym: AEB dx sepsis with alb 2.3 Adjusted Energy Requirement Re: 2725 (22 kcal/kg) Protein Requirement: 110 (.9gm/kg) Fluid Requirement: 2480 (20kcal/kg) Diet Type: Diet as Tolerated JOSH/REG Nutrition Intervention: Cont diet as ordered, Encourage intake Nutrition Monitoring & Eval Nutrition Goals: Eat 75-100% Meal RD Patient Assessment Time: [address] Assessment Type: RD Assessment Patient Nutrition Acuity: 2-Moderate Follow Up Date: Dec 26, 2017 Nutritional Comment: 3/5 Pt admitted with pyelopephitis and sepsis. Pt on regualr diet and ate 100% of first meal in facility. Pt reporting nausea which may affect intake. Alb 2.3. BMI in stage 3 obesity range. Will cont to monitor and encourage healthy intake. STACEY TURNER Dec 21, 2017 13:21
--- NOTE | 2017-12-21 13:43 | RADIOLOGY IMAGING REPORT ---
FACILITY: [facility] [place] PATIENT NAME: Samra Soliz : 1965 MR: [id number] V: [id number] EXAM DATE: ORDERING PHYSICIAN: YANI RUBIO TECHNOLOGIST: [place] [facility] [place] Samra Soliz : 1965 Visit/Account:[id number] Date of Sevice: 12/21/2017 Exam type: CHEST SINGLE AP History: central line Comparison: December 20, 2017. Findings: There is been placement of a left subclavian catheter the distal tip projects over this. Vena cava. No pneumothorax is seen. There is mild chronic elevation right hemidiaphragm. No acute appearing i nfiltrates identified. No evidence of overt pulmonary edema. Cardiac silhouette is normal in size. Anterior dislocation right shoulder IMPRESSION: 1. Interval placement of a left subclavian catheter with no evidence of a pneumothorax No evidence of acute pulmonary consolidation Report Dictated By: Cindy Mustafa MD at 12/21/2017 1:37 PM Report E-Signed By: Cindy Mustafa MD at 12/21/2017 1:39 PM WSN:[id number]
[2017-12-21] MEDS ORDERED: PATIENT'S OWN MED PO SCH (14:00)
[2017-12-21] MEDS: CARBAMAZEPINE 200 MG TAB PO SCH ×2 (14:45→20:30)
[2017-12-21] MEDS ORDERED: TAMSULOSIN HCL 0.4 MG CAP PO SCH (17:00)
[2017-12-21] MEDS: cefTRIAXone 2 GM VIAL IVP SCH (20:05)
[2017-12-22] VITALS (90 sets, daily range): BP systolic 67–131; BP diastolic 38–83
[2017-12-22] MEDS: HYDROCORTISONE 100 MG/2 ML IVP SCH ×3 (00:50→17:10)
--- NOTE | 2017-12-22 04:20 | OPERATIVE REPORT 1 ---
EVENT DATE: December 21, 2017 SURGEON: Dino Parrish MD ANESTHESIA: Local. PREOPERATIVE DIAGNOSIS Sepsis. POSTOPERATIVE DIAGNOSIS Sepsis. PROCEDURE PERFORMED Central venous catheter placement. DESCRIPTION OF PROCEDURE Patient was placed in the supine position. Her left chest was prepped and draped in a sterile fashion. Skin was anesthetized with 1% Xylocaine. An 18- gauge needle was inserted beneath the left clavicle in the left subclavian vein. Good blood return was obtained. Guide wire was passed. Needle was removed. Cruz was made in the skin with a #11 blade. Dilator was passed. Dilator was removed. Three lumen central venous catheter was passed over the guide wire. It was sutured in place with a 2-0 silk. It was aspirated and flushed with saline. Sterile bandage was placed. Portable chest x-ray showed the catheter in good position in the superior vena cava. MTDD
[2017-12-22 05:30] LABS: PLATELET COUNT, AUTOMATED 74 K/uL (150-450)
[2017-12-22] MEDS ORDERED: ACETAMINOPHEN 500 MG TAB PO PRN (07:25)
[2017-12-22] MEDS ORDERED: NS(*) 0.9% 1000 ML BAG 1,000 ML IV PRN ×2 (07:48→12:49)
[2017-12-22] MEDS: NS(*) 0.9% 500 ML BAG 500 ML IV PRN ×2 (07:59→10:02)
--- NOTE | 2017-12-22 08:34 | RADIOLOGY IMAGING REPORT ---
FACILITY: [facility] PATIENT NAME: BRANDO GRAHAM : [id number] MR: [id number] V: [id number] EXAM DATE: ORDERING PHYSICIAN: VERENICE ROMAN TECHNOLOGIST: Lilly Duran EXAMINATION:TWO-DIMENSIONAL ECHOCARDIOGRAPH REASON:CHF 2D Measurements (normal values in centimeters) LV endLV endRV endVent.LV PostAorticLeftPercent DiastolicSystolicDiastolicSeptumWallRootAtriumShortening (3.5-5.7)(0.9-2.6)(0.6-1.1)(0.6-1.1)(2.0-3.7)(1.9-4.0)(25-35%) [id number]% STROKE VOLUME: 71ml ESTIMATED EJECTION FRACTION:71% PARASTERNAL LONG AXIS: Left ventricular systolic function appears to be normal. Aortic valve & mitral valve both appear to open normally. Color examination of the mitral valve reveals some mitral insufficiency. Color examination of the aortic valve in this view was unremarkable. PARASTERNAL SHORT AXIS: Overall left ventricular systolic function again appears to be normal. Aortic valve is trileaflet in configuration & appears to open normally. No other abnormalities were noted in this view. APICAL FOUR AND TWO CHAMBER: Left ventricular systolic function appears to be normal. Right ventricle appears to be mildly enlarged. Left atrium & right atrium are measured within normal ranges. Aortic valve area & mitral valve area both measure within normal ranges at 2.7 & 3.0cm2 respectively. The tricuspid regurgitation Vmax measured 3.2m/sec. Trace to mild amount of tricuspid & mitral insufficiency is noted. Doppler examination of the mitral valve in diastole does reveal the A wave > E wave. SUBCOSTAL VIEW: No pericardial effusion was noted. No atrioseptal or ventriculoseptal defects were appreciated. Definity contrast was also used. No wall motion abnormalities were noted. OVERALL IMPRESSION: 1. Normal left ventricular ejection fraction of 71% with a Grade 1/4 decrease in diastolic function. 2. Mild right ventricular enlargement with all the other chamber sizes being normal. 3. No wall motion abnormalities were noted. 4. Trileaflet aortic valve with minimal aortic sclerosis but no stenosis. 5. Trace to mild amount of mitral & tricuspid insufficiency with estimated right ventricular systolic pressures of 44mm Hg which does include an estimated right atrial pressure of 3mm Hg indicating mild pulmonary hypertension & increased right ventricular systolic pressures. 6. No other abnormalities are noted. Dictated by: Earl Jacques M.D. on 12/21/2017 at 16:53 Transcribed by: SIERRA on 12/22/2017 at 7:54 Approved by: Earl Jacques M.D. on 12/22/2017 at 8:33 [facility]
[2017-12-22] MEDS: DOCUSATE SODIUM 100 MG CAP PO SCH ×2 (09:17→20:31)
[2017-12-22] MEDS: PANTOPRAZOLE SOD 40 MG TABEC PO SCH (09:17)
[2017-12-22] MEDS: CARBAMAZEPINE 200 MG TAB PO SCH ×3 (09:18→20:32)
[2017-12-22] MEDS ORDERED: OXYBUTYNIN CHL XL 5 MG TABCR PO PRN (10:55)
[2017-12-22] MEDS ORDERED: BELLADONNA ALK/OPIUM 60MG SUPP PR PRN (10:55)
--- NOTE | 2017-12-22 11:18 | Procedure Note ---
Central Line Procedure Note Consent Signed: Yes Central Line Lumen: Triple Central Line Procedure: Chlorhexidine Prep, Sterile Drapes Applied, Sterile Dressing Applied Central Line Position: R Internal Jugular Anesthesia Used: 1% Lidocaine CC's of Anesthesia: 3 Complications: None Central Line Post Position: Sutured, Confirmed Blood Return, Position Confirmed w/CXR Comment US was used to identify the RIJ. Area was prepped. US was used for the placement. One attempt was needed for cannulation. Seldinger technique was used to place the triple lumen. CXR confirmed placement and there was no pneumothorax. KANDY JIMENEZ MD Dec 22, 2017 11:18
--- NOTE | 2017-12-22 11:49 | Hospitalist Progress Note ---
Subjective Progress Notes Subjective The patient reports overall feeling some improvement. No reported abdominal/ flank pain/sob/cp. Physical Exam Vital Signs Date Time Temp Pulse Resp B/P (MAP) Pulse Ox O2 Delivery O2 Flow Rate FiO2 12/22/17 07:50 96 Nasal Cannula 5.0 12/22/17 07:45 98.2 73 15 123/67 (85) General Appearance: Alert, Awake, No Acute Distress Cardiovascular: Regular Rate and Rhythm GI: Soft and Non-Tender : No CVA Tenderness Extremities: Edema (in arms and shins, trace to 1+) Integumentary: Other (Left moreno continues to have the warmth/erythema, but is non-tender. She reports it is chronic.) Result Diagram: 12/22/1751612/22/17516 Assessment and Plan Problems: (1) Renal calculus, right Status: Acute Assessment & Plan: She did have an obstructing stone on the right. Please see Dr. Pedersen's notes for management. (2) Pyelonephritis Assessment & Plan: She does have positive urine cultures for a Proteus species and blood cultures are growing GNR (likely Proteus). She also has an elevated WBC and presented with fever. She was started on empiric treatment with ceftriaxone and vancomycin. The vancomycin was discontinued. (3) Septic shock Assessment & Plan: She did have an elevated WBC and lactic acidosis. The lactate has improved, but she still has hypotension. We are treating her with fluid resuscitation and also vasopressor support with norepinephrine. Will try to taper the norepinephrine and continue steroids. (4) Lymphedema of both lower extremities Status: Chronic Assessment & Plan: This appears to be mostly chronic. She does have an elevated BNP, but it doesn't appear that she has ever had an echocardiogram. She has an erythematous patch on the left moreno that is chronic and not cellulitis. Therapy is following the chronic wounds. (5) Seizure disorder Status: Chronic Assessment & Plan: She is on chronic treatment with Tegretol. (6) HTN (hypertension) Status: Chronic Assessment & Plan: She is on chronic treatment with hydrochlorothiazide and lisinopril. Both medications have been on hold. (7) Body mass index (BMI) of 40.0 to 44.9 in adult Exam Sepsis Risk: No Definite Risk Problem Qualifiers (1) HTN (hypertension): Hypertension type: essential hypertension Qualified Codes: I10 - Essential ( primary) hypertension KANDY JIMENEZ MD Dec 22, 2017 11:49
[2017-12-22] MEDS: cefTRIAXone 2 GM VIAL IVP SCH (20:32)
[2017-12-23] VITALS (14 sets, daily range): BP systolic 96–133; BP diastolic 52–84
[2017-12-23] MEDS: HYDROCORTISONE 100 MG/2 ML IVP SCH ×3 (00:18→20:16)
[2017-12-23 05:48] LABS: PLATELET COUNT, AUTOMATED 73 K/uL (150-450)
[2017-12-23] MEDS: NS(*) 0.9% 500 ML BAG 500 ML IV PRN (07:50)
--- NOTE | 2017-12-23 08:54 | Hospitalist Progress Note ---
Subjective Progress Notes Subjective She reports feeling improved. Appetite good. No fever. BPs acceptable. Physical Exam Vital Signs Date Time Temp Pulse Resp B/P (MAP) Pulse Ox O2 Delivery O2 Flow Rate FiO2 12/23/17 08:30 58 16 95 12/23/17 08:00 131/78 (95) 12/23/17 07:45 98.4 12/23/17 07:00 Nasal Cannula 3.0 Intake and Output 12/24/17 07:00 Intake Total 73 ml Output Total 120 ml Balance -47 ml IV Total 73 ml Output Urine Total 120 ml General Appearance: Alert, Awake Neuro: Other (LUE paresis) Cardiovascular: Regular Rate and Rhythm Respiratory: Clear to Auscultation GI: Soft and Non-Tender Extremities: Warm, Edema (chronic) Integumentary: Other (chronic changes left anterior tibial area/no drainage) Psych: Alert & Oriented X3 Result Diagram: 12/23/17 0524 12/23/17 0524 Assessment and Plan Problems: (1) Pyelonephritis Assessment & Plan: Clinically improved. She does have positive urine cultures for a Proteus species and blood cultures are growing GNR (likely Proteus). She also had an elevated WBC and presented with fever. She was started on empiric treatment with IV ceftriaxone and vancomycin. The vancomycin has been discontinued. (2) Renal calculus, right Status: Acute Assessment & Plan: She did have an obstructing stone on the right. Please see Dr. Pedersen's notes for management. (3) Septic shock Assessment & Plan: She did have an elevated WBC and lactic acidosis. The lactate has improved. Hypotension has now resolved. She did receive IV fluid resuscitation and vasopressor support with norepinephrine. She has been weaned off the norepinephrine. Will wean the steroids as well. She should be bale to transfer to medical floor today. (4) Lymphedema of both lower extremities Status: Chronic Assessment & Plan: This appears to be mostly chronic. She does have an elevated BNP. Her echocardiogram shows some moderate pulmonary HTN, but is otherwise unremarkable. She has an erythematous patch on the left moreno that is chronic and does not appear to be cellulitis. Therapy is following the chronic wounds. (5) Seizure disorder Status: Chronic Assessment & Plan: She is on chronic treatment with Tegretol. (6) HTN (hypertension) Status: Chronic Assessment & Plan: She is on chronic treatment with hydrochlorothiazide and lisinopril. Both medications have been on hold. (7) Thrombocytopenia Status: Acute Assessment & Plan: Most likely related to her acute illness. We have not been able to use Lovenox due to this and some hematuria with stent placement. She is on SCDs. Watch labs. (8) Body mass index (BMI) of 40.0 to 44.9 in adult Exam Sepsis Risk: No Definite Risk Problem Qualifiers (1) HTN (hypertension): Hypertension type: essential hypertension Qualified Codes: I10 - Essential ( primary) hypertension TUAN BRICE MD Dec 23, 2017 08:54
[2017-12-23] MEDS: CARBAMAZEPINE 200 MG TAB PO SCH ×3 (09:00→22:00)
--- NOTE | 2017-12-23 09:03 | Antimicrobial Stewardship ---
Antimicrobial Time Out Antimicrobial Stewardship MD Service: Hospitalist Indications: UTI, Other (Urosepsis) Antimicrobial Used Ceftriaxone 2g IV Q24h Start Date: Dec 20, 2017 (Day 4) Culture Results: Yes (12/20/17 - Urine Cx (+) - Proteus, Blood Cx x 2 (+)- Proteus) Eligible for PO Conversion Eligable for PO Conversion: No Reviewed with Provider Reviewed w/ Provider on Rounds: Yes Date Reviewed w/ Provider: Dec 23, 2017 Comments Comments 52 F who presented to the ED with RLQ and flank/back pain, emesis, nausea found to have Pyelonephritis/UTI with kidney stones Tmax 103, BP hypotensive (90s/40s)- MAP upper 50s to low 60s, WBC elevated at 12.7, plts dropped to 77k (no enoxaparin or anti-platelets- could be secondary to carbamazepine or acute illness), lactate elevated a 2.4-->1.7, Scr wnl, LFTs slightly elevated (likely related carbamazepine + ceftriaxone) 06/22/18 (Day 4 of Abx)- Blood pressure improved, off norepinephrine, HR in the 50s, afebrile for >24h UA consistent with UTI/Pyelo Blood Cx - (+)- Both sets growing Proteus--MICs/sensitivity -->pending, most likely same pattern as in the urine- will follow Urine Cx - Growing GNR, appears to be Proteus per lab, sensitive to Ceftriaxone , Resistant to nitrofurantoin 1. UTI/Pyelonephritis secondary to kidney stones - s/p stent placement, most likely growing proteus, ID/Sens pending, on Ceftriaxone + Vancomycin. Plan to stop Vancomycin. Today day 4 (12/23/17) of Ceftriaxone. 2. Urosepsis- Blood Cx x 2 (+) growing Proteus, sensitivity pending, Norepinephrine stopped, pt improving dropped Hydrocortisone to 50mg IV q12h 3. 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
[2017-12-23] MEDS: DOCUSATE SODIUM 100 MG CAP PO SCH ×2 (09:22→20:16)
[2017-12-23] MEDS: PANTOPRAZOLE SOD 40 MG TABEC PO SCH (09:22)
[2017-12-23] MEDS: cefTRIAXone 2 GM VIAL IVP SCH (20:10)
[2017-12-24] MEDS: NS(*) 0.9% 500 ML BAG 500 ML IV PRN (01:29)
[2017-12-24 05:44] VITALS: BP 128/83
[2017-12-24 06:27] LABS: PLATELET COUNT, AUTOMATED 86 K/uL (150-450)
[2017-12-24 07:11] VITALS: BP 119/70
[2017-12-24] MEDS: DOCUSATE SODIUM 100 MG CAP PO SCH ×2 (08:20→20:06)
[2017-12-24] MEDS: PANTOPRAZOLE SOD 40 MG TABEC PO SCH (08:20)
[2017-12-24] MEDS: CARBAMAZEPINE 200 MG TAB PO SCH ×3 (08:20→20:06)
[2017-12-24] MEDS: HYDROCORTISONE 100 MG/2 ML IVP SCH (08:21)
[2017-12-24 11:37] VITALS: BP 139/85
--- NOTE | 2017-12-24 12:31 | Hospitalist Progress Note ---
Subjective Progress Notes Subjective The patient denies new complaints. Physical Exam Vital Signs Date Time Temp Pulse Resp B/P (MAP) Pulse Ox O2 Delivery O2 Flow Rate FiO2 12/24/17 11:37 98.6 70 14 139/85 (103) 92 Nasal Cannula 3.0 Intake and Output 12/25/17 07:00 Output Total 300 ml Balance -300 ml Output Urine Total 300 ml # Bowel Movements 1 General Appearance: Alert, Awake, No Acute Distress, Afebrile Neuro: No Gross deficits Eyes: PERRLA Cardiovascular: Regular Rate and Rhythm Respiratory: Clear to Auscultation GI: Soft and Non-Tender Extremities: Warm, Perfused (Bilateral LE edema. SCDs in place.) Psych: Appropriate Mood & Affect Result Diagram: 12/24/1754212/24/17542 Assessment and Plan Problems: (1) Pyelonephritis Assessment & Plan: Clinically improved. She does have positive urine and blood cultures for a Proteus. She also had an elevated WBC and presented with fever. She was started on empiric treatment with IV ceftriaxone and vancomycin. The vancomycin has been discontinued. She will potentially need another 14 days of IV antibiotics. Will place a PICC line and have SW assist with planning. The patient is considering home with Home Health versus ECF. (2) Renal calculus, right Status: Acute Assessment & Plan: She did have an obstructing stone on the right. Please see Dr. Pedersen's notes for management. (3) Septic shock Assessment & Plan: She did have an elevated WBC and lactic acidosis. The lactate normalized. Hypotension has now resolved. She did receive IV fluid resuscitation and vasopressor support with norepinephrine. She was weaned off the norepinephrine and transferred to the medical floor. Will wean the steroids off today. (4) Lymphedema of both lower extremities Status: Chronic Assessment & Plan: This appears to be mostly chronic. She does have an elevated BNP. Her echocardiogram shows some moderate pulmonary HTN, but is otherwise unremarkable. She has an erythematous patch on the left moreno that is chronic and does not appear to be cellulitis. Therapy is following the chronic wounds. (5) Seizure disorder Status: Chronic Assessment & Plan: She is on chronic treatment with Tegretol. (6) HTN (hypertension) Status: Chronic Assessment & Plan: She is on chronic treatment with hydrochlorothiazide and lisinopril. Both medications have been on hold. (7) Thrombocytopenia Status: Acute Assessment & Plan: Most likely related to her acute illness. We have not been able to use Lovenox due to this and some hematuria with stent placement. She is on SCDs. Watch labs. (8) Body mass index (BMI) of 40.0 to 44.9 in adult Time Spent on Plan of Care: < 30 min Exam Sepsis Risk: No Definite Risk Problem Qualifiers (1) HTN (hypertension): Hypertension type: essential hypertension Qualified Codes: I10 - Essential ( primary) hypertension SILVANO BRICE MD Dec 24, 2017 12:31
--- NOTE | 2017-12-24 16:53 | RADIOLOGY IMAGING REPORT ---
[place] [facility] [place] NAME: Samra Soliz : 1965 MR: [id number] V: [id number] EXAM DATE: ORDERING PHYSICIAN: SILVANO BRICE TECHNOLOGIST: Location: [facility] Patient: Samra Soliz : 1965 Visit/Account:[id number] Date of Sevice: 12/24/2017 Exam type: PICC LINE INSERTION, PICC LINE PLACEMENT History: 14 days of ab Comparison: None. Findings: Informed consent was obtained. Patient's right arm was prepped and draped in usual sterile fashion. Local anesthesia was accomplished 1% lidocaine. Utilizing both fluoroscopic and sonographic guidanc e a 39 cm long trimmed 5 Greek double-lumen power PICC was inserted via the patent right basilic vei n with the distal tip resting in superior vena cava. Both lumens of the power PICC were flushed with 5 mL of saline flush. The proximal portion of the PICC line was adhered the patient's arm the steri le dressing. The procedure was accomplished without apparent complication. The sonographic images w ere saved to PACS. The fluoroscopy dose area product was 108.81 micro-Hernandez per meter squared. IMPRESSION: 1. Successful placement of a 39 cm long trimmed 5 Greek double lumen power PICC inserted via the pa tent right basilic vein with the distal tip resting in superior vena cava Report Dictated By: Cindy Mustafa MD at 12/24/2017 4:46 PM Report E-Signed By: Cindy Mustafa MD at 12/24/2017 4:48 PM WSN:[email or web address]
--- NOTE | 2017-12-24 16:54 | RADIOLOGY IMAGING REPORT ---
FACILITY: [facility] [place] PATIENT NAME: Samra Soliz : 1965 MR: [id number] V: [id number] EXAM DATE: ORDERING PHYSICIAN: SILVANO BRICE TECHNOLOGIST: Location: [facility] [place] Patient: Samra Soliz : 1965 Visit/Account:[id number] Date of Sevice: 12/24/2017 Exam type: PICC LINE INSERTION, PICC LINE PLACEMENT History: 14 days of ab Comparison: None. Findings: Informed consent was obtained. Patient's right arm was prepped and draped in usual sterile fashion. Local anesthesia was accomplished 1% lidocaine. Utilizing both fluoroscopic and sonographic guidanc e a 39 cm long trimmed 5 Mohawk double-lumen power PICC was inserted via the patent right basilic vei n with the distal tip resting in superior vena cava. Both lumens of the power PICC were flushed with 5 mL of saline flush. The proximal portion of the PICC line was adhered the patient's arm the steri le dressing. The procedure was accomplished without apparent complication. The sonographic images w ere saved to PACS. The fluoroscopy dose area product was 108.81 micro-Hernandez per meter squared. IMPRESSION: 1. Successful placement of a 39 cm long trimmed 5 Mohawk double lumen power PICC inserted via the pa tent right basilic vein with the distal tip resting in superior vena cava Report Dictated By: Cindy Mustafa MD at 12/24/2017 4:46 PM Report E-Signed By: Cindy Mustafa MD at 12/24/2017 4:48 PM WSN:[email or web address]
[2017-12-24 18:59] VITALS: BP 129/98
[2017-12-24] MEDS: cefTRIAXone 2 GM VIAL IVP SCH (20:05)
[2017-12-25 05:36] LABS: PLATELET COUNT, AUTOMATED 86 K/uL (150-450)
[2017-12-25 06:25] VITALS: BP 142/86
--- NOTE | 2017-12-25 06:47 | Hospitalist Depart ---
Discharge Summary Reason for Hosp/Final Diag: (1) Pyelonephritis Hospital Course & Plan: The patient presented with kidney stones and pyelonephritis. She had an elevated WBC and fever. She did have positive urine and blood cultures for Proteus mirabilis. She was initially started on empiric treatment with IV ceftriaxone and vancomycin. The vancomycin was discontinued. It was felt she would potentially need another 14 days of IV antibiotics. A PICC line was placed and plans were made for transfer to ECF for ongoing antibiotic therapy. (2) Renal calculus, right Status: Acute Hospital Course & Plan: She did have an obstructing stone on the right. Please see Dr. Carrington's notes for management. (3) Septic shock Hospital Course & Plan: She did have an elevated WBC and lactic acidosis. The lactate normalized with IV fluids. Her hypotension resolved. She did receive IV fluid resuscitation, Solu Cortef and vasopressor support with norepinephrine. She was weaned off the norepinephrine and transferred to the medical floor. (4) Lymphedema of both lower extremities Status: Chronic Hospital Course & Plan: This appeared to be chronic. She did have an elevated BNP at 402. Her echocardiogram showed some moderate pulmonary hypertension, but was otherwise unremarkable. She had an erythematous patch on the left moreno that was chronic and did not appear to be cellulitis. PT wound care followed her wounds. (5) Seizure disorder Status: Chronic Hospital Course & Plan: She was continued on chronic treatment with Tegretol. (6) HTN (hypertension) Status: Chronic Hospital Course & Plan: She had been on chronic treatment with hydrochlorothiazide and lisinopril. Both medications were held due to fairly normal blood pressures off of the medication. (7) Thrombocytopenia Status: Acute Hospital Course & Plan: Most likely related to her acute illness. We were not able to use Lovenox due to this and some hematuria with stent placement. She was on SCDs. (8) Body mass index (BMI) of 40.0 to 44.9 in adult Status: Chronic Departure Weight (Pounds): 302 Weight (Ounces): 8.0 Result Diagram: 12/25/1750912/25/17509 Condition: Improved Discharge: [facility] E[facility] Time Spent: < 30 min Discharge Instructions Home Meds Reported Medications Glucosamine/Msm/Chondroitin A (GLUCOSAMINE CHONDROIT MSM TAB) 1 Each Tablet, 1 TAB PO TID 12/20/17 [axo] No Conflict Check, 1 TAB PO BID "pumpkin tablet for bladder control" 12/20/17 Multivit, Iron, Min #5, Fa (STROVITE FORTE CAPLET) 1 Each Tablet, 1 EACH PO QDAY 12/20/17 Diclofenac Sodium 1% Gel (VOLTAREN 1% GEL) 100 Gm Gel..gram., 2-4 GM TOP QDAY 12/20/17 Meloxicam (Mobic) 15 Mg Tablet, 1 TAB PO BID 10/23/12 Lisinopril/Hydrochlorothiazide (Prinzide 10/12.5 Mg Tablet) 1 Tab Tablet, 1 TAB PO DAILY 10/23/12 Carbamazepine (TEGretol (OR EQUIV)) 200 Mg Tab, 200 MG PO TID 10/23/12 Discontinued Reported Medications Amoxicillin/Clavulanate K (Augmentin) 875 Mg Tab, 875 MG PO BIDBS, #20 10/23/12 Diet: Regular Activity: As Tolerated Copies to: BURKE SHANE DO; IZZY CARRINGTON MD Venous Thromboembolism Antithrombotics Is Pt On Any Antithrombotics?: No Problem Qualifiers (1) HTN (hypertension): Hypertension type: essential hypertension Qualified Codes: I10 - Essential ( primary) hypertension SILVANO BRICE MD Dec 25, 2017 06:47
[2017-12-25 07:53] VITALS: BP 138/84
[2017-12-25] MEDS: CARBAMAZEPINE 200 MG TAB PO SCH (08:58)
[2017-12-25] MEDS: DOCUSATE SODIUM 100 MG CAP PO SCH (08:58)
[2017-12-25] MEDS: PANTOPRAZOLE SOD 40 MG TABEC PO SCH (08:58)
== END 2017-12-25 11:45 | DRG 871 ==
LOC: ER 13:51 → MED 17:11 → ICU 12-21 01:10 → MED 12-23 11:50
PROVIDERS: ADMIT Urology; ATTEND Urology
PROC: 0T768DZ Dilation of Right Ureter with Intraluminal Device, Via Natural or Artificial Opening Endoscopic (ICD-10-PCS; 2017-12-20)
PROC: BT1DYZZ Fluoroscopy of Right Kidney, Ureter and Bladder using Other Contrast (ICD-10-PCS; principal; 2017-12-20 21:00)
PROC: 02HV33Z Insertion of Infusion Device into Superior Vena Cava, Percutaneous Approach (ICD-10-PCS; 2017-12-21)
DX: A41.9 Sepsis, unspecified organism (principal); R65.21 Severe sepsis with septic shock; I27.0 Primary pulmonary hypertension; Z68.42 Body mass index [BMI] 45.0-49.9, adult; N39.0 Urinary tract infection, site not specified; E87.2 Acidosis; N13.6 Pyonephrosis; B96.4 Proteus (mirabilis) (morganii) as the cause of diseases classified elsewhere; I89.0 Lymphedema, not elsewhere classified; I10 Essential (primary) hypertension; D69.6 Thrombocytopenia, unspecified; G89.4 Chronic pain syndrome; Q65.89 Other specified congenital deformities of hip; M06.9 Rheumatoid arthritis, unspecified; N39.41 Urge incontinence; N20.0 Calculus of kidney; S81.809A Unspecified open wound, unspecified lower leg, initial encounter; L53.9 Erythematous condition, unspecified; Z88.1 Allergy status to other antibiotic agents; Z88.2 Allergy status to sulfonamides; Z88.0 Allergy status to penicillin; Z86.14 Personal history of Methicillin resistant Staphylococcus aureus infection; Z97.3 Presence of spectacles and contact lenses; E66.09 Other obesity due to excess calories; X58.XXXA Exposure to other specified factors, initial encounter; G40.909 Epilepsy, unspecified, not intractable, without status epilepticus
CPT/HCPCS: 36415; 36569; 71045; 74177; 74420; 76937; 81001; 82040; 82150; 82247; 82310; 82374; 82435; 82565; 82947; 83605; 83690; 83880; 84075; 84132; 84155; 84295; 84450; 84460; 84520; 85025; 87040; 87077; 87088; 87186; 93005; 96361; 96374; 96375; 97161; 97163; 97166; 99285; A4353; C1751; C1758; C1894; C2617; C8929; J0696; J1100; J1720; J1885; J2001; J2175; J2405; J2704; J3010; J3370; J3490; J7030; J7040; J7050; J7060; Q9957; Q9967

== ENCOUNTER → 2017-12-20 | Outpatient (CLI) | payer MEDICARE, MEDICAID ==
[~2017-12-20] MED LIST changes: +DICL100G39 TOP; +GLUC1TAB35 PO; +MULT-834 PO; +[UNRECOGNIZED DRUG - OTHER] PO
== END ==
LOC: AMB 13:12
PROVIDERS: ATTEND Nurse Practitioner
DX: R10.31 Right lower quadrant pain (principal); R11.10 Vomiting, unspecified
CPT/HCPCS: A0425; A0427

== ENCOUNTER 2017-12-25 11:48 | Inpatient (IN) | payer MEDICARE, MEDICAID ==
[~2017-12-25] VITALS: Ht 167.6 cm; Wt 120.2 kg
[~2017-12-25 11:48] MED LIST changes: +DICL100G39 TOP; +GLUC1TAB35 PO; +MULT-834 PO; +[UNRECOGNIZED DRUG - OTHER] PO
[2017-12-25] MEDS ORDERED: cefTRIAXone 2 GM VIAL IVP SCH (12:16)
--- NOTE | 2017-12-25 12:38 | Consultant Pharmacy Review ---
Design Painter Review Medication Review Do All Mecications have a Diag: Yes Beers Criteria Medication 2015 Proton Pump Inhibitors: Pantoprazole (QDAY. MAY INCREASE RISK OF FRACTURES.) Other General Cautions Acetaminophen / CarBAMazepine Dependencies: * Dose: Patients receiving higher doses (and longer duration) of acetaminophen may be at higher risk for experiencing a clinically significant interaction. Risk Rating C: Monitor therapy Summary CarBAMazepine may increase the metabolism of Acetaminophen. This may 1) diminish the effect of acetaminophen; and 2) increase the risk of liver damage. Severity Moderate Reliability Rating Good Patient Management Monitor for decreased effects of acetaminophen, and hepatotoxicity (due to increased concentrations of acetaminophen metabolites), if carbamazepine is used concomitantly. This is of particular concern in patients receiving high-dose and/or chronic acetaminophen therapy. Discussion Anticonvulsants may increase acetaminophen clearance by >40%.1,2 This is likely due to carbamazepine induction of CYP isoenzymes and UDPGTase leading to acetaminophen metabolism. Acetaminophen-induced hepatotoxicity may be enhanced by anticonvulsants due to increased production of toxic acetaminophen metabolites which exceed glutathione binding capacity (the mechanism by which the metabolites are cleared). Acetaminophen concentrations may be relatively low, complicating the diagnosis and delaying the appropriate administration of acetylcysteine. This has been demonstrated with phenobarbital and phenytoin.3,4 Carbamazepine concentrations do not appear to be affected by acetaminophen.5 Footnotes 1. Peng E and Mouna A, Paracetamol Disposition in Normal Subjects and in Patients Treated With Antiepileptic Drugs, Br J Clin Pharmacol, 1979, 7(2):201- 6. [PubMed [id number]] 2. Magdi NINA, Merry J, and Rafael DJ, Determinants of Acetaminophen Metabolism: Effect of Inducers and Inhibitors of Drug Metabolism on Acetaminophen's Metabolic Pathways, Clin Pharmacol Ther, 1984, 35(4):480-6. [ PubMed [id number]] 3. Shanique NA, Campbell JA, and April RJ, Fatal Paracetamol Poisoning in an Epileptic, Hum Toxicol, 1988, 7(1):33-4. [PubMed [id number]] 4. Arlene BM, Parth M, [place], et al, Management of Paracetamol Poisoning Complicated by Enzyme Induction Due to Alcohol or Drugs, Lancet, 1990 , 335(0410):1526. [PubMed [id number]] 5. Sal PJ, Vannessa R, Ayleen A, et al, Antipyretic Analgesics in Patients on Antiepileptic Drug Therapy, Eur J Clin Pharmacol, 1979, 15(4):263- 8. [PubMed [id number]] Pneumococcal Vaccine HX Pneumo Vac ([id number]): No Comments Regarding the Review Due to carbamazepine use: periodic CBC with platelet count,reticulocytes, serum iron, lipid panel, liver function tests, urinalysis, BUN, serum carbamasepine levels, thyroid function tests, serum sodium, ophthalmic exams (pupillary reflexes), observe patient for excessive sedation.signs of rash. SILVANO PORRAS Dec 25, 2017 12:38
[2017-12-25 13:10] VITALS: BP 122/60
[2017-12-25] MEDS: CARBAMAZEPINE 200 MG TAB PO SCH ×2 (14:03→20:23)
--- NOTE | 2017-12-25 14:20 | OT ECF NOTE ---
Type of Note: Initial Note Primary Medical Diagnosis: Generalized weakness s/p hospital admission for pyelonephritis, renal stone, and septic shock Occupational Therapy Evaluation Date: 12/25/17 SUBJECTIVE: Prior Hospitalization: [facility] 12/20/17 thru 12/25/17 Prior Level of Function: Prior to admission, pt received total assistance for dressing, bathing, and IADLs. She was ambulating 15-20ft with two quad canes. 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 Unable to tolerate sit<>stand with RW and Max Ax2 at time of evaluation Transfer Ability: 2-person assist, Maximum assistance ADL: Upper body dressing: Assistive device: Upper body dressing ability: Pt reports assist from caregivers with all UB dressing at home Lower body dressing: Assistive device: Pt reports assist from caregivers with all LB dressing at home Lower body dressing ability: Total assistance Toileting: Assistive device: Bedside Commode-Pt incontinent of urine Toileting ability: Maximum assistance, Total assistance Grooming/hygiene: Assistive device: Grooming ability: N/T Bathing: Assistive device: Bathing ability: N/T Standardized Assessment: Eulogio Index of Activities of Daily Livin/20 upon initial evaluation (12/25/17). ASSESSMENT: Samra presents to [facility] requiring Max Ax2-3 and use of EZ lift for transfers. She requires total assistance for all ADLs. At [facility], she was ambulating 15-20ft with two quad canes. She will benefit from skilled OT services to improve activity tolerance and strength for engagement in ADLs. Problem List/Current Limitations: Decreased activity tolerance Decreased strength Decreased ROM Generalized weakness Short Term Goals: 1) Pt will be Min A toileting. 2) Pt will be Min A grooming/hygiene. 3) Pt Euloigo Index of ADLs score will improve by 2 points. 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 If you have any questions, concerns, or comments about this report or plan, please contact me at . Yoana Guzman MS, OTR/L Occupational Therapist TING
[2017-12-25 14:22] VITALS: BP 128/68
[2017-12-25 15:34] VITALS: BP 137/78
[2017-12-25] MEDS ORDERED: NS(*) 0.9% 500 ML BAG 500 ML IV PRN ×2 (19:00→21:00)
[2017-12-25] MEDS: DOCUSATE SODIUM 100 MG CAP PO SCH (20:24)
[2017-12-25] MEDS: cefTRIAXone 2 GM VIAL IVP SCH (20:25)
[2017-12-26 07:55] VITALS: BP 134/74
[2017-12-26] MEDS: PANTOPRAZOLE SOD 40 MG TABEC PO SCH (08:50)
[2017-12-26] MEDS: CARBAMAZEPINE 200 MG TAB PO SCH ×3 (08:50→21:18)
[2017-12-26] MEDS: DOCUSATE SODIUM 100 MG CAP PO SCH ×2 (08:50→21:18)
--- NOTE | 2017-12-26 13:59 | PT ECF NOTE ---
Type of Note: Initial Note Primary Medical Diagnosis: Weakness Physical Therapy Evaluation Date: 12/25/17 SUBJECTIVE: Prior Hospitalization: [facility], [facility] acute care; please see [employer] for details Prior Level of Function: Pt required assistance from caregivers for bed mobility but was able to perform sit<>stand transfers from elevated surfaces and ambulate 15' with either bilateral canes or a wide RW without physical assistance. Pt has 24 hour caregivers plus assistance from home health care. Pt has a stair lift on her stairs and utilizes a "scooter" or wheelchair for longer-distance mobility. Prior Living Status: Bi-level house, Living with family Community Services: Home health care, private caregivers Home Accessibility: Ramp, chair lift Equipment Owned: Front wheeled walker, 2 Canes, Wheelchair, "scooter" Medical Complications/Past Medical History: extensive, please see [employer] Psychosocial Support: Pt has supportive family, caregivers, home health care Pain Scale (0-10): Pt denies pain at rest. OBJECTIVE: Strength: Right Lower Extremity: 3/5 knee extension Left Lower Extremity: 3/5 knee extension Right Upper Extremity: decreased R shoulder strength 2/5 Left Upper Extremity: decreased L UE strength throughout including hand rated at approximately 2-/5 throughout. 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 limited B shoulder ROM and limited L hand ROM Bed Mobility: Max A x2 Assistive device: Bed rail, Head of bed elevated Transfers: 2-person assist Maximum assistance Assistive Device: EZ/Patient assisted lift Gait: Pt unable at this time ASSESSMENT: Pt presents with decreased independence with functional mobility compared to baseline. Pt will benefit from skilled PT for functional mobility training in order to return to prior level of function. Problem List/Current Limitations: Pain, Decreased activity tolerance, Decreased strength, Decreased balance, Generalized weakness, Shortness of breath Short Term Goals: 1. Mod A x1 bed mobility. 2. CGA/SBA sit<>stand transfers. 3. CGA/SBA ambulation x 15' with RW. 4. CGA/SBA ambulation x15' with 2 canes. [facility] Goals: Return to prior living arrangements. Patient Goals: Return home. Rehabilitation Prognosis: Fair Barriers for Discharge: Pt's poor prior functional status. PLAN: The patient will benefit from skilled physical therapy services 5 times per week for 2 weeks including: Therapeutic Exercise, Therapeutic Activities, Transfer Training, Gait Training, Manual Therapy, ADL's, Safety Training, Neuromuscular Re-educ., Wound Care, Pt/Caregiver Training, Bed Mobility Thank you for this referral. If you have any questions, concerns, or comments about this report or plan, please contact me at . Maria A Bangura, PT, DPT, GCS MTDD
--- NOTE | 2017-12-26 14:21 | Medical Nutrition Therapy ---
Nutrition Anthropometrics Height (Inches): 56.00 Height (Calculated Centimeters: 142.917000 Weight (Pounds): 298 Weight (Calculated Kilograms): 135.171 Mike Nutrition Score: Probably Inadequate Mike Nutrition Risk Score: 11 Dietary Referral Nutrition Risk Factors: Nutrition Risk Comment: Physical Findings Physical Appearance: Morbidly Obese 40+ Skin Appearance Skin Appearance: Edema Edema Location Modifier: Both Edema Location: Lower Extremity Type of Edema: Degree of Edema: 1+ Gastrointestinal Symptoms GI Symtoms: Tube Present: Bowel Sounds: Recent Bowel Pattern: Stool Characteristics: Brown, Hard Nutritional Diagnosis Nutritional Risk Acuity 2: Sepsis Nutritional Risk Acuity 3: Nausea Nutritional Acuity: 3-Mild Nutrition Diagnosis: Increased Nutrient Needs Nutrition Etiology: Physiological Causes Nutrition Problem/Etiology/Sym: Increased nutrient needs related to physiological causes as evidenced by sepsis dx Adjusted Energy Requirement Re: 2725 (22 kcal/kg for morbid obesity) Protein Requirement: 110 (.9 g/kg) Fluid Requirement: 2480 Diet Type: Diet as Tolerated JOSH/REG Nutrition Intervention: Cont diet as ordered Food Likes: She has refused all lunch meals while in ECF Additional Diet Restrictions: PT REQUEST BRFT AT 10:00 AND DINNER AT 5:00 Nutrition Monitoring & Eval RD Patient Assessment Time: [address] Assessment Type: RD Assessment Patient Nutrition Acuity: 2-Moderate Follow Up Date: Dec 29, 2017 Nutritional Comment: 12/26 Pt transferred to ECF unit for ongoing antibiotic treatment. BMI in morbid obesity range at 66.8. Currently on JOSH with intake of 50-75% of two meals in facility. Notable labs include creatinine .5, alk phos 174, tot pro 5.3, alb 2.5. Will cont to monitor and encourage intake. ROSARIO MAYFIELD Dec 26, 2017 14:21
[2017-12-26 16:49] VITALS: BP 128/74
[2017-12-26] MEDS: MELOXICAM 7.5 MG TAB PO PRN (16:58)
[2017-12-26] MEDS ORDERED: NS(*) 0.9% 100 ML BAG 0 ML ONE (21:04)
[2017-12-26] MEDS ORDERED: cefTRIAXone 1 GM VIAL ONE (21:04)
[2017-12-26] MEDS: cefTRIAXone 2 GM VIAL IVP SCH (21:18)
[2017-12-27 08:00] VITALS: BP 116/55
[2017-12-27] MEDS ORDERED: CAL PO SCH (08:00)
[2017-12-27] MEDS ORDERED: MAG PO SCH (08:00)
[2017-12-27] MEDS ORDERED: VIT D3 PO SCH (08:00)
[2017-12-27] MEDS ORDERED: VITAMIN E 400 INTLU CAP PO SCH (09:00)
[2017-12-27] MEDS ORDERED: GLUCOSAMINE-CHONDROITIN CAP PO SCH ×2 (09:00→10:00)
[2017-12-27] MEDS ORDERED: MULTIVITAMINS TAB PO SCH (09:00)
[2017-12-27] MEDS ORDERED: DICLOFENAC SOD 100 GM GEL TOP SCH (09:00)
[2017-12-27] MEDS: MAG PO SCH ×2 (09:59→17:46)
[2017-12-27] MEDS: CAL PO SCH ×2 (09:59→17:46)
[2017-12-27] MEDS: VIT D3 PO SCH ×2 (09:59→17:46)
[2017-12-27] MEDS: VITAMIN E 400 INTLU CAP PO SCH (10:00)
[2017-12-27] MEDS: DICLOFENAC SOD 100 GM GEL TOP SCH (10:00)
[2017-12-27] MEDS: DOCUSATE SODIUM 100 MG CAP PO SCH ×2 (10:01→20:21)
[2017-12-27] MEDS: PANTOPRAZOLE SOD 40 MG TABEC PO SCH (10:01)
[2017-12-27] MEDS: MELOXICAM 7.5 MG TAB PO PRN (10:01)
[2017-12-27] MEDS: MULTIVITAMINS TAB PO SCH (10:02)
[2017-12-27] MEDS: CARBAMAZEPINE 200 MG TAB PO SCH ×3 (10:04→20:21)
[2017-12-27] MEDS: GLUCOSAMINE-CHONDROITIN CAP PO SCH ×2 (14:05→17:45)
[2017-12-27 15:19] VITALS: BP 144/88
[2017-12-27] MEDS: GARLIC PO SCH (17:45)
[2017-12-27] MEDS: PARSLEY PO SCH (17:45)
[2017-12-27] MEDS: FOLIC ACID/CYANOCOB/PYRIDOXINE PO SCH (17:45)
[2017-12-27] MEDS: cefTRIAXone 2 GM VIAL IVP SCH (20:21)
[2017-12-27] MEDS: MELOXICAM 7.5 MG TAB PO SCH (20:21)
[2017-12-28 08:55] VITALS: BP 141/88
[2017-12-28] MEDS: DOCUSATE SODIUM 100 MG CAP PO SCH ×2 (08:57→20:58)
[2017-12-28] MEDS: CARBAMAZEPINE 200 MG TAB PO SCH ×3 (08:58→20:57)
[2017-12-28] MEDS: MELOXICAM 7.5 MG TAB PO SCH ×2 (08:58→20:58)
[2017-12-28] MEDS: DICLOFENAC SOD 100 GM GEL TOP SCH (09:01)
[2017-12-28] MEDS: MAG PO SCH ×2 (09:02→17:14)
[2017-12-28] MEDS: CAL PO SCH ×2 (09:02→17:14)
[2017-12-28] MEDS: VIT D3 PO SCH ×2 (09:02→17:14)
[2017-12-28] MEDS: VITAMIN E 400 INTLU CAP PO SCH (09:03)
[2017-12-28] MEDS: GLUCOSAMINE-CHONDROITIN CAP PO SCH ×3 (09:03→17:13)
[2017-12-28] MEDS: PANTOPRAZOLE SOD 40 MG TABEC PO SCH (09:06)
[2017-12-28] MEDS: MULTIVITAMINS TAB PO SCH (09:06)
[2017-12-28 15:19] VITALS: BP 125/70
--- NOTE | 2017-12-28 16:47 | ECF H&P BLANK ---
[facility] H&P UPDATE History of Present Illness Requesting Physician Slava Reason for Consult Medication management History of Present Illness 52yo female with a h/o LE lymphedema, seizures and HTN who was admitted for right sided abdominal pain and found to have a 4.5mm ureteral stone on the right causing mild hydronephrosis and mild nephropathy changes. When she got up to the floor she had a fever to 103.8 degrees. She denies cough and any skin changes. She had her LE leg wraps done this morning. She reports a chronic erythematous area on the left moreno. She denies a h/o CAD, COPD, CHF, asthma. She denies chest pain with activity, but she is very sedentary (i.e. uses a lift chair for stairs). She has never smoked. History Problems: (1) HTN (hypertension) Status: Chronic (2) Seizure disorder Status: Chronic (3) Lymphedema of both lower extremities Status: Chronic (4) History of foot surgery (5) Hip dysplasia Home Meds Reported Medications Glucosamine/Msm/Chondroitin A (GLUCOSAMINE CHONDROIT MSM TAB) 1 Each Tablet, 1 TAB PO TID 12/20/17 [axo] No Conflict Check, 1 TAB PO BID "pumpkin tablet for bladder control" 12/20/17 Multivit, Iron, Min #5, Fa (STROVITE FORTE CAPLET) 1 Each Tablet, 1 EACH PO QDAY 12/20/17 Diclofenac Sodium 1% Gel (VOLTAREN 1% GEL) 100 Gm Gel..gram., 2-4 GM TOP QDAY 12/20/17 Meloxicam (Mobic) 15 Mg Tablet, 1 TAB PO BID 10/23/12 Lisinopril/Hydrochlorothiazide (Prinzide 10/12.5 Mg Tablet) 1 Tab Tablet, 1 TAB PO DAILY 10/23/12 Carbamazepine (TEGretol (OR EQUIV)) 200 Mg Tab, 200 MG PO TID 10/23/12 Discontinued Reported Medications Amoxicillin/Clavulanate K (Augmentin) 875 Mg Tab, 875 MG PO BIDBS, #20 10/23/12 Allergies: Coded Allergies: Penicillins (Verified Allergy, Unknown, 12/20/17) Sulfa (Sulfonamide Antibiotics) (Verified Allergy, Unknown, 12/20/17) amoxicillin (Verified Allergy, Unknown, 12/20/17) Other Social/Family Hx No tobacco or alcohol use. Hx Smoking: No Hx Alcohol Use: No Hx Substance Use Disorder: No Review of Systems All Systems Reviewed/Normal: Yes, Except as Noted Exam Vital Signs Vital Signs Date Time Temp Pulse Resp B/P (MAP) Pulse Ox O2 Delivery O2 Flow Rate FiO2 12/20/17 17:52 103.2 107 18 130/64 (86) 97 Nasal Cannula 1.0 General Appearance: Alert, Awake, No Acute Distress (She seems a bit sleepy) Neuro: No Gross deficits Eyes: PERRLA Cardiovascular: Other (tachy, regular) Respiratory: Clear to Auscultation GI: Abd Soft and Non-Tender : No CVA Tenderness Extremities: Edema (No pitting edema, but legs are diffusely edematous from shins to feet. Left moreno has about a 10cm in width dark erythematous area that wraps around the moreno. It is warm, but she doesn't report much tenderness. There are some wounds on the shins with clear drainage.) Medical Decision Making Data Points Result Diagram: 12/20/17 1340 12/20/17 1340 Item Value Date Time Neutrophils (%) (Auto) 83.9 % H 12/20/17 1340 Lymphocytes (%) (Auto) 10.4 % L 12/20/17 1340 Monocytes (%) (Auto) 5.1 % 12/20/17 1340 Eosinophils (%) (Auto) 0.0 % L 12/20/17 1340 Random Glucose 142 mg/dl H 12/20/17 1340 Calcium Level 9.8 mg/dl 12/20/17 1340 Total Bilirubin 0.5 mg/dl 12/20/17 1340 Aspartate Amino Transf (AST/SGOT) 23 U/L 12/20/17 1340 Alanine Aminotransferase (ALT/SGPT) 35 U/L 12/20/17 1340 Alkaline Phosphatase 148 U/L H 12/20/17 1340 Urine Nitrite Positive H 12/20/17 1455 Urine Blood Large 12/20/17 1455 Urine Bilirubin Negative 12/20/17 1455 Urine Urobilinogen Negative mg/dL 12/20/17 1455 Urine Leukocyte Esterase Trace H 12/20/17 1455 Urine RBC 27 /HPF 12/20/17 1455 Urine WBC 14 /HPF 12/20/17 1455 Urine Squamous Epithelial Cells None /LPF 12/20/17 1455 Urine Bacteria Negative /HPF 12/20/17 1455 Urine Mucus Few /HPF 12/20/17 1455 EKG / Imaging EKG Interpretation Sinus tachycardia with diffuse T flattening. Poor R wave progression c/w ant/ sep NV vs lead placement. No previous to compare. Imaging CXR - No acute abnormalities. No previous to compare. Assessment and Plan Problems: (1) Pre-op evaluation Status: Acute Assessment & Plan: She is a low to moderate risk for cardiac complications secondary to age and deconditioned status. She has no worrisome symptoms or signs. No further testing needed. She is a low risk for pulmonary complications. She is a low to moderate risk for bleeding complications secondary to recent NSAID use. (2) Renal calculus, right Status: Acute Assessment & Plan: She has a ureteral stone causing mild hydronephrosis and has a fever to 103.8. Because of concern of infection, she is going to have a stent placed. She is to have cultures blood cultures drawn and Rocephin started. BP/P are stable. (3) Lymphedema of both lower extremities Status: Chronic Assessment & Plan: Her left moreno has a dark erythematous area that is warmer than other areas. The area was outlined. She reports that it is chronic. She has a number of wounds that are having clear drainage. Will ask PT to evaluate for wound care instructions. Because of the previous MRSA wound infection from 2012, will start Vancomycin. There are no draining areas that are concerning for infection, so will not put in contact isolation or culture. (4) Seizure disorder Status: Chronic Assessment & Plan: Continue Tegretol. (5) HTN (hypertension) Status: Chronic Assessment & Plan: Hold HCTZ/Lisinopril and use enalaprilat prn. Copies to: BURKE SHANE DO; IZZY CARRINGTON MD Venous Thromboembolism Antithrombotics Is Pt On Any Antithrombotics?: No Exam Sepsis Risk: No Definite Risk KANDY JIMENEZ MD Dec 20, 2017 19:41 <Electronically signed by KANDY JIMENEZ MD> D/ 35 40 40 PETELARS/LP CC: BURKE SHANE DO; IZZY CARRINGTON MD Patient will be admitted to [facility] for ongoing antibiotics and rehabilitative therapy. TUAN BRICE MD Dec 28, 2017 16:47
[2017-12-28] MEDS: FOLIC ACID/CYANOCOB/PYRIDOXINE PO SCH (17:13)
[2017-12-28] MEDS: GARLIC PO SCH (17:14)
[2017-12-28] MEDS: PARSLEY PO SCH (17:14)
[2017-12-28] MEDS: cefTRIAXone 2 GM VIAL IVP SCH (20:57)
[2017-12-29 08:47] VITALS: BP 135/66
[2017-12-29] MEDS: DOCUSATE SODIUM 100 MG CAP PO SCH ×2 (09:07→20:54)
[2017-12-29] MEDS: MELOXICAM 7.5 MG TAB PO SCH ×2 (09:07→20:54)
[2017-12-29] MEDS: CARBAMAZEPINE 200 MG TAB PO SCH ×3 (09:07→20:54)
[2017-12-29] MEDS: MULTIVITAMINS TAB PO SCH (09:52)
[2017-12-29] MEDS: VITAMIN E 400 INTLU CAP PO SCH (09:52)
[2017-12-29] MEDS: PANTOPRAZOLE SOD 40 MG TABEC PO SCH (09:52)
[2017-12-29] MEDS: GLUCOSAMINE-CHONDROITIN CAP PO SCH ×3 (09:52→17:29)
[2017-12-29] MEDS: VIT D3 PO SCH ×2 (09:53→17:28)
[2017-12-29] MEDS: MAG PO SCH ×2 (09:53→17:28)
[2017-12-29] MEDS: CAL PO SCH ×2 (09:53→17:28)
[2017-12-29] MEDS: DICLOFENAC SOD 100 GM GEL TOP SCH (10:19)
--- NOTE | 2017-12-29 13:04 | Medical Nutrition Therapy ---
Nutrition Anthropometrics Height (Inches): 56.00 Height (Calculated Centimeters: 142.650946 Weight (Pounds): 298 Weight (Calculated Kilograms): 135.171 Mike Nutrition Score: Adequate Mike Nutrition Risk Score: 13 Dietary Referral Nutrition Risk Factors: Nutrition Risk Comment: Physical Findings Physical Appearance: Morbidly Obese 40+ Skin Appearance Skin Appearance: Edema Edema Location Modifier: Both Edema Location: Lower Extremity Type of Edema: Degree of Edema: 1+ Gastrointestinal Symptoms GI Symtoms: Tube Present: Bowel Sounds: Recent Bowel Pattern: Stool Characteristics: Brown, Hard Nutrition/Food History Good Nutritional Diagnosis Nutritional Risk Acuity 2: Sepsis Nutritional Risk Acuity 3: Nausea, Morbid Obesity Past Medical History: HTN, Seizure disorder, Lymphedema of both lower extremities, foot surgery, Hip dysplasia Nutritional Acuity: 3-Mild Nutrition Diagnosis: Increased Nutrient Needs Nutrition Etiology: Physiological Causes Nutrition Problem/Etiology/Sym: Increased nutrient needs related to physiological causes as evidenced by sepsis dx Adjusted Energy Requirement Re: 2725 (22 kcal/kg for morbid obesity) Protein Requirement: 110 (.9 g/kg) Fluid Requirement: 2480 Diet Type: Diet as Tolerated JOSH/REG Nutrition Intervention: Cont diet as ordered Food Likes: She has refused all lunch meals while in ECF Additional Diet Restrictions: PT REQUEST BRFT AT 10:00 AND DINNER AT 5:00 Nutrition Monitoring & Eval Nutrition Goals: Eat 50-100% Meal RD Patient Assessment Time: [address] Assessment Type: RD Re-Assessment Patient Nutrition Acuity: 2-Moderate Follow Up Date: Jan 05, 2018 Nutritional Comment: 12/26 Pt transferred to ECF unit for ongoing antibiotic treatment. BMI in morbid obesity range at 66.8. Currently on JOSH with intake of 50-75% of two meals in facility. Notable labs include creatinine .5, alk phos 174, tot pro 5.3, alb 2.5. Will cont to monitor and encourage intake. 12/29 No new labs. Continues to have good appetite with late breakfast and dinner meals (only two meals/day). Usually consumes 75-100% of meals. No other nutritional issues at this time. Follow labs, wt, intake, etc. ANH LEIVA Dec 29, 2017 13:04
[2017-12-29] MEDS: ACETAMINOPHEN 500 MG TAB PO PRN ×2 (14:04→22:16)
[2017-12-29 16:15] VITALS: BP 138/80
[2017-12-29] MEDS: PARSLEY PO SCH (17:28)
[2017-12-29] MEDS: GARLIC PO SCH (17:28)
[2017-12-29] MEDS: FOLIC ACID/CYANOCOB/PYRIDOXINE PO SCH (17:29)
[2017-12-29] MEDS: cefTRIAXone 2 GM VIAL IVP SCH (20:03)
[2017-12-30 08:05] VITALS: BP 129/81
[2017-12-30] MEDS: DICLOFENAC SOD 100 GM GEL TOP SCH (08:52)
[2017-12-30] MEDS: ACETAMINOPHEN 500 MG TAB PO PRN ×2 (09:21→17:10)
[2017-12-30] MEDS: CARBAMAZEPINE 200 MG TAB PO SCH ×3 (09:21→21:31)
[2017-12-30] MEDS: DOCUSATE SODIUM 100 MG CAP PO SCH ×2 (09:21→21:31)
[2017-12-30] MEDS: MELOXICAM 7.5 MG TAB PO SCH ×2 (09:21→21:31)
[2017-12-30] MEDS: CAL PO SCH ×2 (10:05→17:10)
[2017-12-30] MEDS: MAG PO SCH ×2 (10:05→17:10)
[2017-12-30] MEDS: VIT D3 PO SCH ×2 (10:05→17:10)
[2017-12-30] MEDS: GLUCOSAMINE-CHONDROITIN CAP PO SCH ×3 (10:06→17:10)
[2017-12-30] MEDS: VITAMIN E 400 INTLU CAP PO SCH (10:06)
[2017-12-30] MEDS: MULTIVITAMINS TAB PO SCH (10:06)
[2017-12-30] MEDS: PANTOPRAZOLE SOD 40 MG TABEC PO SCH (10:06)
[2017-12-30 15:50] VITALS: BP 139/84
[2017-12-30] MEDS: PARSLEY PO SCH (17:10)
[2017-12-30] MEDS: GARLIC PO SCH (17:10)
[2017-12-30] MEDS: FOLIC ACID/CYANOCOB/PYRIDOXINE PO SCH (17:10)
--- NOTE | 2017-12-30 17:21 | Hospitalist Progress Note ---
Physical Exam Vital Signs Date Time Temp Pulse Resp B/P (MAP) Pulse Ox O2 Delivery O2 Flow Rate FiO2 12/30/17 15:50 98.0 62 20 139/84 (102) 89 Room Air 12/29/17 10:39 2.0 Intake and Output 12/31/17 07:00 Intake Total 120 ml Balance 120 ml Intake Oral 120 ml # Voids 3 # Bowel Movements 2 Assessment and Plan Problems: (1) Pyelonephritis Status: Acute Assessment & Plan: The patient presented with kidney stones and pyelonephritis. She had an elevated WBC and fever. She did have positive urine and blood cultures for Proteus mirabilis. She was initially started on empiric treatment with IV ceftriaxone and vancomycin. The vancomycin was discontinued. It was felt she would potentially need another 14 days of IV antibiotics. A PICC line was placed and plans were made for transfer to [facility] for ongoing antibiotic therapy. (2) Renal calculus, right Status: Acute Assessment & Plan: She did have an obstructing stone on the right. Please see Dr. Pedersen's notes for management. (3) Septic shock Status: Resolved Assessment & Plan: Resolved. She did have an elevated WBC and lactic acidosis. The lactate normalized with IV fluids. Her hypotension resolved. She did receive IV fluid resuscitation, Solu Cortef and vasopressor support with norepinephrine. She was weaned off the norepinephrine and transferred to the medical floor. (4) Lymphedema of both lower extremities Status: Chronic Assessment & Plan: This appeared to be chronic. She did have an elevated BNP at 402. Her echocardiogram showed some moderate pulmonary hypertension, but was otherwise unremarkable. She had an erythematous patch on the left moreno that was chronic and did not appear to be cellulitis. PT wound care followed her wounds. (5) Seizure disorder Status: Chronic Assessment & Plan: She was continued on chronic treatment with Tegretol. (6) HTN (hypertension) Status: Chronic Assessment & Plan: She had been on chronic treatment with hydrochlorothiazide and lisinopril. Both medications were held due to fairly normal blood pressures off of the medication. (7) Thrombocytopenia Status: Acute Assessment & Plan: Most likely related to her acute illness. We were not able to use Lovenox due to this and some hematuria with stent placement. She was on SCDs. Will repeat a CBC in am. (8) Body mass index (BMI) of 40.0 to 44.9 in adult Status: Chronic Time Spent on Plan of Care: < 30 min SILVANO BRICE MD Dec 30, 2017 17:21
[2017-12-30] MEDS: cefTRIAXone 2 GM VIAL IVP SCH (20:26)
[2017-12-31] MEDS: ACETAMINOPHEN 500 MG TAB PO PRN ×3 (05:17→23:21)
[2017-12-31 06:15] LABS: PLATELET COUNT, AUTOMATED 161 K/uL (150-450)
[2017-12-31 08:07] VITALS: BP 144/65
[2017-12-31] MEDS: MELOXICAM 7.5 MG TAB PO SCH ×2 (08:18→21:34)
[2017-12-31] MEDS: DOCUSATE SODIUM 100 MG CAP PO SCH ×2 (08:19→21:00)
[2017-12-31] MEDS: DICLOFENAC SOD 100 GM GEL TOP SCH (09:31)
[2017-12-31] MEDS: CARBAMAZEPINE 200 MG TAB PO SCH ×3 (10:33→21:34)
[2017-12-31] MEDS: PANTOPRAZOLE SOD 40 MG TABEC PO SCH (10:33)
[2017-12-31] MEDS: GLUCOSAMINE-CHONDROITIN CAP PO SCH ×3 (10:33→16:53)
[2017-12-31] MEDS: MAG PO SCH ×2 (10:33→16:54)
[2017-12-31] MEDS: VIT D3 PO SCH ×2 (10:33→16:54)
[2017-12-31] MEDS: VITAMIN E 400 INTLU CAP PO SCH (10:33)
[2017-12-31] MEDS: MULTIVITAMINS TAB PO SCH (10:33)
[2017-12-31] MEDS: CAL PO SCH ×2 (10:33→16:54)
[2017-12-31 15:55] VITALS: BP 149/83
[2017-12-31] MEDS: FOLIC ACID/CYANOCOB/PYRIDOXINE PO SCH (16:53)
[2017-12-31] MEDS: PARSLEY PO SCH (16:54)
[2017-12-31] MEDS: GARLIC PO SCH (16:54)
[2017-12-31] MEDS: cefTRIAXone 2 GM VIAL IVP SCH (20:30)
[2018-01-01] MEDS: ACETAMINOPHEN 500 MG TAB PO PRN ×2 (07:32→15:48)
[2018-01-01 07:35] VITALS: BP 146/69
[2018-01-01] MEDS: DICLOFENAC SOD 100 GM GEL TOP SCH (09:11)
[2018-01-01] MEDS: DOCUSATE SODIUM 100 MG CAP PO SCH ×2 (09:11→21:00)
[2018-01-01] MEDS: MELOXICAM 7.5 MG TAB PO SCH ×2 (09:11→21:34)
[2018-01-01] MEDS: VIT D3 PO SCH ×2 (10:24→17:03)
[2018-01-01] MEDS: GLUCOSAMINE-CHONDROITIN CAP PO SCH ×3 (10:24→17:03)
[2018-01-01] MEDS: PANTOPRAZOLE SOD 40 MG TABEC PO SCH (10:24)
[2018-01-01] MEDS: VITAMIN E 400 INTLU CAP PO SCH (10:24)
[2018-01-01] MEDS: CAL PO SCH ×2 (10:24→17:03)
[2018-01-01] MEDS: MULTIVITAMINS TAB PO SCH (10:24)
[2018-01-01] MEDS: MAG PO SCH ×2 (10:24→17:03)
[2018-01-01] MEDS: CARBAMAZEPINE 200 MG TAB PO SCH ×3 (10:24→21:34)
[2018-01-01 16:30] VITALS: BP 147/80
[2018-01-01] MEDS: GARLIC PO SCH (17:03)
[2018-01-01] MEDS: FOLIC ACID/CYANOCOB/PYRIDOXINE PO SCH (17:03)
[2018-01-01] MEDS: PARSLEY PO SCH (17:03)
[2018-01-01] MEDS: cefTRIAXone 2 GM VIAL IVP SCH (19:55)
[2018-01-02] MEDS: ACETAMINOPHEN 500 MG TAB PO PRN ×4 (00:04→17:54)
[2018-01-02 07:30] VITALS: BP 117/66
[2018-01-02] MEDS: DOCUSATE SODIUM 100 MG CAP PO SCH ×2 (08:48→20:22)
[2018-01-02] MEDS: DICLOFENAC SOD 100 GM GEL TOP SCH (10:00)
[2018-01-02] MEDS: MELOXICAM 7.5 MG TAB PO SCH ×2 (10:29→20:22)
[2018-01-02] MEDS: OXYBUTYNIN CHL XL 5 MG TABCR PO PRN (10:29)
[2018-01-02] MEDS: GLUCOSAMINE-CHONDROITIN CAP PO SCH ×3 (10:30→17:47)
[2018-01-02] MEDS: CARBAMAZEPINE 200 MG TAB PO SCH ×3 (10:30→21:55)
[2018-01-02] MEDS: VITAMIN E 400 INTLU CAP PO SCH (10:30)
[2018-01-02] MEDS: MULTIVITAMINS TAB PO SCH (10:31)
[2018-01-02] MEDS: PANTOPRAZOLE SOD 40 MG TABEC PO SCH (10:32)
[2018-01-02] MEDS: MAG PO SCH ×2 (10:33→17:50)
[2018-01-02] MEDS: VIT D3 PO SCH ×2 (10:33→17:50)
[2018-01-02] MEDS: CAL PO SCH ×2 (10:33→17:50)
[2018-01-02] MEDS: PARSLEY PO SCH (17:48)
[2018-01-02] MEDS: GARLIC PO SCH (17:48)
[2018-01-02] MEDS: FOLIC ACID/CYANOCOB/PYRIDOXINE PO SCH (17:49)
[2018-01-02 18:18] VITALS: BP 154/83
[2018-01-02] MEDS: cefTRIAXone 2 GM VIAL IVP SCH (20:22)
[2018-01-03] MEDS: ACETAMINOPHEN 500 MG TAB PO PRN ×2 (06:04→18:34)
[2018-01-03 07:25] VITALS: BP 118/68
[2018-01-03] MEDS: DOCUSATE SODIUM 100 MG CAP PO SCH ×2 (09:21→20:33)
[2018-01-03] MEDS: MELOXICAM 7.5 MG TAB PO SCH ×2 (09:21→20:33)
[2018-01-03] MEDS: CARBAMAZEPINE 200 MG TAB PO SCH ×3 (10:14→21:53)
[2018-01-03] MEDS: VIT D3 PO SCH ×2 (10:14→17:45)
[2018-01-03] MEDS: CAL PO SCH ×2 (10:14→17:45)
[2018-01-03] MEDS: MAG PO SCH ×2 (10:14→17:45)
[2018-01-03] MEDS: DICLOFENAC SOD 100 GM GEL TOP SCH (10:15)
[2018-01-03] MEDS: OXYBUTYNIN CHL XL 5 MG TABCR PO PRN (10:15)
[2018-01-03] MEDS: GLUCOSAMINE-CHONDROITIN CAP PO SCH ×3 (10:15→17:46)
[2018-01-03] MEDS: VITAMIN E 400 INTLU CAP PO SCH (10:15)
[2018-01-03] MEDS: PANTOPRAZOLE SOD 40 MG TABEC PO SCH (10:16)
[2018-01-03] MEDS: MULTIVITAMINS TAB PO SCH (10:16)
[2018-01-03 16:35] VITALS: BP 152/84
[2018-01-03] MEDS: PARSLEY PO SCH (17:45)
[2018-01-03] MEDS: GARLIC PO SCH (17:45)
[2018-01-03] MEDS: FOLIC ACID/CYANOCOB/PYRIDOXINE PO SCH (17:46)
[2018-01-03] MEDS: cefTRIAXone 2 GM VIAL IVP SCH (20:32)
[2018-01-04 08:00] VITALS: BP 147/67
[2018-01-04 08:39] VITALS: BP 137/68
[2018-01-04] MEDS: DOCUSATE SODIUM 100 MG CAP PO SCH ×2 (09:00→20:45)
[2018-01-04] MEDS: ACETAMINOPHEN 500 MG TAB PO PRN ×2 (09:08→17:41)
[2018-01-04] MEDS: DICLOFENAC SOD 100 GM GEL TOP SCH (09:08)
[2018-01-04] MEDS: MELOXICAM 7.5 MG TAB PO SCH ×2 (09:08→20:45)
[2018-01-04] MEDS: VITAMIN E 400 INTLU CAP PO SCH (10:27)
[2018-01-04] MEDS: GLUCOSAMINE-CHONDROITIN CAP PO SCH ×4 (10:27→20:45)
[2018-01-04] MEDS: CAL PO SCH ×2 (10:27→17:40)
[2018-01-04] MEDS: MULTIVITAMINS TAB PO SCH (10:27)
[2018-01-04] MEDS: CARBAMAZEPINE 200 MG TAB PO SCH ×3 (10:27→22:00)
[2018-01-04] MEDS: MAG PO SCH ×2 (10:27→17:40)
[2018-01-04] MEDS: VIT D3 PO SCH ×2 (10:27→17:40)
[2018-01-04] MEDS: PANTOPRAZOLE SOD 40 MG TABEC PO SCH (10:27)
[2018-01-04] MEDS: FOLIC ACID/CYANOCOB/PYRIDOXINE PO SCH (17:40)
[2018-01-04] MEDS: GARLIC PO SCH (17:40)
[2018-01-04] MEDS: PARSLEY PO SCH (17:40)
[2018-01-04 19:15] VITALS: BP 147/80
[2018-01-04] MEDS: cefTRIAXone 2 GM VIAL IVP SCH (20:45)
[2018-01-05] MEDS: ACETAMINOPHEN 500 MG TAB PO PRN ×2 (07:24→17:01)
[2018-01-05 07:26] VITALS: BP 143/73
[2018-01-05] MEDS: DOCUSATE SODIUM 100 MG CAP PO SCH ×2 (09:00→20:45)
[2018-01-05] MEDS: DICLOFENAC SOD 100 GM GEL TOP SCH (09:37)
[2018-01-05] MEDS: MELOXICAM 7.5 MG TAB PO SCH ×3 (09:37→22:04)
[2018-01-05] MEDS: MULTIVITAMINS TAB PO SCH (10:08)
[2018-01-05] MEDS: CARBAMAZEPINE 200 MG TAB PO SCH ×3 (10:08→22:00)
[2018-01-05] MEDS: PANTOPRAZOLE SOD 40 MG TABEC PO SCH (10:08)
[2018-01-05] MEDS: GLUCOSAMINE-CHONDROITIN CAP PO SCH ×3 (10:08→20:45)
[2018-01-05] MEDS: VITAMIN E 400 INTLU CAP PO SCH (10:08)
[2018-01-05] MEDS: MAG PO SCH ×2 (10:09→17:01)
[2018-01-05] MEDS: CAL PO SCH ×2 (10:09→17:01)
[2018-01-05] MEDS: VIT D3 PO SCH ×2 (10:09→17:01)
--- NOTE | 2018-01-05 10:45 | Medical Nutrition Therapy ---
Nutrition Anthropometrics Height (Inches): 56.00 Height (Calculated Centimeters: 142.241306 Weight (Pounds): 283 Weight (Calculated Kilograms): 128.707 Mike Nutrition Score: Adequate Mike Nutrition Risk Score: 15 Dietary Referral Nutrition Risk Factors: Nutrition Risk Comment: Physical Findings Physical Appearance: Morbidly Obese 40+ Skin Appearance Skin Appearance: Edema Edema Location Modifier: Left Edema Location: Foot Type of Edema: Degree of Edema: 2+ Gastrointestinal Symptoms GI Symtoms: Tube Present: Bowel Sounds: Recent Bowel Pattern: Stool Characteristics: Brown, Hard Nutritional Diagnosis Nutritional Risk Acuity 3: Nausea, Morbid Obesity Past Medical History: HTN, Seizure disorder, Lymphedema of both lower extremities, foot surgery, Hip dysplasia Nutritional Acuity: 3-Mild Adjusted Energy Requirement Re: 2725 (22 kcal/kg for morbid obesity) Protein Requirement: 110 (.9 g/kg) Fluid Requirement: 2480 Diet Type: Diet as Tolerated JOSH/REG Nutrition Intervention: Cont diet as ordered Food Likes: She has refused all lunch meals while in ECF Additional Diet Restrictions: PT REQUEST BRFT AT 10:00 AND DINNER AT 5:00 Nutrition Monitoring & Eval Nutrition Goals: Eat 75-100% Meal Nutrition Follow-Up: Fair Intake RD Patient Assessment Time: [address] Assessment Type: RD Re-Assessment Patient Nutrition Acuity: 3-Mild Follow Up Date: Jan 12, 2018 Nutritional Comment: 12/26 Pt transferred to ECF unit for ongoing antibiotic treatment. BMI in morbid obesity range at 66.8. Currently on JOSH with intake of 50-75% of two meals in facility. Notable labs include creatinine .5, alk phos 174, tot pro 5.3, alb 2.5. Will cont to monitor and encourage intake. 12/29 No new labs. Continues to have good appetite with late breakfast and dinner meals (only two meals/day). Usually consumes 75-100% of meals. No other nutritional issues at this time. Follow labs, wt, intake, etc. 01/05 Intake average 62% of her 2 meals however pt will eat 100% of a nightime snack 30% of the time. Sepsis has resolved. Alb cont low at 2.8. Cont to monitor and encourage intake. STACEY TURNER Jan 05, 2018 10:45
[2018-01-05] MEDS: FOLIC ACID/CYANOCOB/PYRIDOXINE PO SCH (17:01)
[2018-01-05] MEDS: GARLIC PO SCH (17:01)
[2018-01-05] MEDS: PARSLEY PO SCH (17:01)
[2018-01-05 17:05] VITALS: BP 142/68
[2018-01-05] MEDS: cefTRIAXone 2 GM VIAL IVP SCH (20:45)
[2018-01-06] MEDS: ACETAMINOPHEN 500 MG TAB PO PRN ×2 (08:28→18:21)
[2018-01-06] MEDS: MELOXICAM 7.5 MG TAB PO SCH (09:00)
[2018-01-06] MEDS: DOCUSATE SODIUM 100 MG CAP PO SCH ×2 (09:00→21:00)
[2018-01-06] MEDS: DICLOFENAC SOD 100 GM GEL TOP SCH (09:11)
[2018-01-06 09:13] VITALS: BP 136/78
[2018-01-06] MEDS: VIT D3 PO SCH ×2 (10:20→17:12)
[2018-01-06] MEDS: CARBAMAZEPINE 200 MG TAB PO SCH ×3 (10:20→21:35)
[2018-01-06] MEDS: GLUCOSAMINE-CHONDROITIN CAP PO SCH ×3 (10:20→21:00)
[2018-01-06] MEDS: PANTOPRAZOLE SOD 40 MG TABEC PO SCH (10:20)
[2018-01-06] MEDS: VITAMIN E 400 INTLU CAP PO SCH (10:20)
[2018-01-06] MEDS: MAG PO SCH ×2 (10:20→17:12)
[2018-01-06] MEDS: MULTIVITAMINS TAB PO SCH (10:20)
[2018-01-06] MEDS: CAL PO SCH ×2 (10:20→17:12)
--- NOTE | 2018-01-06 14:51 | Hospitalist Progress Note ---
Subjective Progress Notes Subjective The patient is very concerned about pain relief prior to surgery. Per Dr. Pedersen , Voltaren and Mobic were stopped. Surgery is Thursday. Patient Complains of: Cardiovascular: No: Chest Pain Respiratory: No: Shortness of Breath Physical Exam Vital Signs Date Time Temp Pulse Resp B/P (MAP) Pulse Ox O2 Delivery O2 Flow Rate FiO2 01/06/18 11:01 89 Nasal Cannula 1.0 01/06/18 09:13 98.0 78 20 136/78 (97) Intake and Output 01/07/18 07:00 Intake Total 360 ml Balance 360 ml Intake Oral 360 ml # Voids 1 General Appearance: Alert, Awake, No Acute Distress, Afebrile Respiratory: No Respiratory Distress Psych: Alert & Oriented X3, Appropriate Mood & Affect Assessment and Plan Problems: (1) Pyelonephritis Status: Acute Assessment & Plan: The patient presented with kidney stones and pyelonephritis. She had an elevated WBC and fever. She did have positive urine and blood cultures for Proteus mirabilis. She was initially started on empiric treatment with IV ceftriaxone and vancomycin. The vancomycin was discontinued. It was felt she would potentially need another 14 days of IV antibiotics. A PICC line was placed for antibiotics. The patient should continue antibiotics through the weekend prior to surgery on Thursday. Per Dr. Pedersen, she had to stop Voltaren and Mobic secondary to increased risk of bleeding. She will continue Tylenol. There is a call into Dr. Villanueva, about the possibility of joint injections to right shoulder and right knee for pain relief. (2) Renal calculus, right Status: Acute Assessment & Plan: She did have an obstructing stone on the right. Please see Dr. Pedersen's notes for management. (3) Septic shock Status: Resolved Assessment & Plan: Resolved. She did have an elevated WBC and lactic acidosis. The lactate normalized with IV fluids. Her hypotension resolved. She did receive IV fluid resuscitation, Solu Cortef and vasopressor support with norepinephrine. (4) Lymphedema of both lower extremities Status: Chronic Assessment & Plan: This appeared to be chronic. She did have an elevated BNP at 402. Her echocardiogram showed some moderate pulmonary hypertension, but was otherwise unremarkable. She had an erythematous patch on the left moreon that was chronic and did not appear to be cellulitis. PT wound care followed her wounds. (5) Seizure disorder Status: Chronic Assessment & Plan: She was continued on chronic treatment with Tegretol. (6) HTN (hypertension) Status: Chronic Assessment & Plan: She had been on chronic treatment with hydrochlorothiazide and lisinopril. Both medications were held due to fairly normal blood pressures off of the medication. (7) Thrombocytopenia Status: Acute Assessment & Plan: Most likely related to her acute illness. We were not able to use Lovenox due to this and some hematuria with stent placement. She was on SCDs. (8) Body mass index (BMI) of 40.0 to 44.9 in adult Status: Chronic Problem Qualifiers (1) HTN (hypertension): Hypertension type: essential hypertension Qualified Codes: I10 - Essential ( primary) hypertension GALI DALEY MECHANICAL ARTIST Jan 06, 2018 14:51
[2018-01-06 16:00] VITALS: BP 140/70
[2018-01-06] MEDS: GARLIC PO SCH (17:12)
[2018-01-06] MEDS: PARSLEY PO SCH (17:12)
[2018-01-06] MEDS: FOLIC ACID/CYANOCOB/PYRIDOXINE PO SCH (17:12)
[2018-01-06] MEDS: cefTRIAXone 2 GM VIAL IVP SCH (20:17)
[2018-01-07] MEDS: ACETAMINOPHEN 500 MG TAB PO PRN ×4 (06:45→23:01)
[2018-01-07] MEDS: DOCUSATE SODIUM 100 MG CAP PO SCH ×2 (09:00→20:31)
[2018-01-07] MEDS: DICLOFENAC SOD 100 GM GEL TOP SCH ×2 (10:00→10:21)
[2018-01-07] MEDS: PANTOPRAZOLE SOD 40 MG TABEC PO SCH (10:17)
[2018-01-07] MEDS: GLUCOSAMINE-CHONDROITIN CAP PO SCH ×3 (10:17→20:31)
[2018-01-07] MEDS: MULTIVITAMINS TAB PO SCH (10:18)
[2018-01-07] MEDS: VITAMIN E 400 INTLU CAP PO SCH (10:18)
[2018-01-07] MEDS: CARBAMAZEPINE 200 MG TAB PO SCH ×3 (10:19→21:55)
[2018-01-07] MEDS: MAG PO SCH ×2 (10:20→17:18)
[2018-01-07] MEDS: CAL PO SCH ×2 (10:20→17:18)
[2018-01-07] MEDS: VIT D3 PO SCH ×2 (10:20→17:18)
[2018-01-07 13:30] VITALS: BP 148/77
[2018-01-07] MEDS: FOLIC ACID/CYANOCOB/PYRIDOXINE PO SCH (17:17)
[2018-01-07] MEDS: PARSLEY PO SCH (17:18)
[2018-01-07] MEDS: GARLIC PO SCH (17:18)
[2018-01-07 17:28] VITALS: BP 153/85
[2018-01-07] MEDS: cefTRIAXone 2 GM VIAL IVP SCH (20:31)
[2018-01-08 07:30] VITALS: BP 124/64
[2018-01-08] MEDS: DOCUSATE SODIUM 100 MG CAP PO SCH ×2 (09:00→21:00)
[2018-01-08] MEDS: VIT D3 PO SCH ×2 (10:00→16:53)
[2018-01-08] MEDS: ACETAMINOPHEN 500 MG TAB PO PRN ×2 (10:00→18:17)
[2018-01-08] MEDS: MAG PO SCH ×2 (10:00→16:53)
[2018-01-08] MEDS: CAL PO SCH ×2 (10:00→16:53)
[2018-01-08] MEDS: CARBAMAZEPINE 200 MG TAB PO SCH ×3 (10:01→21:42)
[2018-01-08] MEDS: GLUCOSAMINE-CHONDROITIN CAP PO SCH ×3 (10:01→21:00)
[2018-01-08] MEDS: PANTOPRAZOLE SOD 40 MG TABEC PO SCH (10:04)
[2018-01-08] MEDS: MULTIVITAMINS TAB PO SCH (10:05)
[2018-01-08] MEDS: VITAMIN E 400 INTLU CAP PO SCH (10:15)
--- NOTE | 2018-01-08 13:37 | OT ECF NOTE ---
Type of Note: Discharge Note Primary Medical Diagnosis: Generalized weakness s/p hospital admission for pyelonephritis, renal stone, and septic shock Occupational Therapy Evaluation Date: 12/25/17 SUBJECTIVE: Prior Hospitalization: [facility] 12/20/17 thru 12/25/17 Prior Level of Function: Prior to admission, pt received total assistance for dressing, bathing, and IADLs. She was ambulating 15-20ft with two quad canes. (Per HH pt was not ambulating to bathroom or throughout home, pt was sitting in chair and incontinent. 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, chronic LB lymphedema, seizure disorder, urge incontinence, hypertension Psychosocial Support: Supportive family and caregivers Pain Scale (0-10): No pain reported at time of evaluation OBJECTIVE: Strength: MMT: Right Left Shoulder Flexion WFL N/T Elbow Flexion WFL N/T Wrist Extension WFL N/T Network Systems Engineer WFL N/T (5= normal, 4= good, 3= fair, 2= poor, 1= trace) ROM: Left, Severely limited Functional Transfer: Assistive Device: Rolling Walker Transfer Ability: CGA/Min A stand pivot ADL: Upper body dressing: Assistive device: Pt reports assist from caregivers with all UB dressing at home Upper body dressing ability: Total Assistance Lower body dressing: Assistive device: Pt reports assist from caregivers with all LB dressing at home Lower body dressing ability: Total assistance Toileting: Assistive device: Bedside Commode-Pt incontinent of urine Toileting ability: Maximum assistance, Total assistance Grooming/hygiene: Assistive device: Grooming ability: Set-up A oral care. Total assistance for all other grooming Bathing: Assistive device: Shower chair Bathing ability: Total assistance Standardized Assessment: Eulogio Index of Activities of Daily Livin/20 upon initial evaluation (12/25/17). 04/07 at discharge (01/07/18). ASSESSMENT: Samra presented to ECF requiring Max Ax2-3 and use of EZ lift for transfers. She now is able to complete stand pivot transfers with RW, increased time and CGA-Min A. She continues to require total assistance for all ADLs. Pt has been educated on LB AE and reports she has a mash tub cooker operator available at home but refuses to utilize them when provided on ECF. Pt also reports having a toileting aide at home that she does not like to use and was not agreeable to discussion regarding alternative methods for devaughn-care. Pt has improved with transfers during time on ECF and has plateaued with ADLs. Pt reports that she has caregiver assist at home for all ADLs. Pt has surgery scheduled Thursday and is concerned about anticipated pain with mobility secondary to not taking pain medication prior to sx. Discussed options with pt regarding OT services including alternating days/discharge from therapy. Pt elected to be discharged from OT services as she has help at home with ADLs. PT to continue serving patient in order to improve mobility and endurance without exacerbating pain prior to sx. Problem List/Current Limitations: Decreased activity tolerance Decreased strength Decreased ROM Generalized weakness Short Term Goals: 1) Pt will be Min A toileting. Goal Not Met. 2) Pt will be Min A grooming/hygiene. Goal Not Met. 3) Pt Eulogio Index of ADLs score will improve by 2 points. Goal Not Met. Shelter Goals: Return home with continued daily assistance from HH services Patient Goals: "Walk far enough to go home" Rehabilitation Prognosis: Fair Barriers to Discharge: Medical history PLAN: The patient will be discharged from skilled OT services. It is recommended that pt discharge to long-term rehab/placement as she requires total assistance for ADLs and is not ambulating functional distances for a safe discharge home. Thank you for this referral. If you have any questions, concerns, or comments about this report or plan, please contact me at . Yoana Guzman MS, OTR/L Occupational Therapist TING
[2018-01-08 15:44] VITALS: BP 141/89
[2018-01-08] MEDS: FOLIC ACID/CYANOCOB/PYRIDOXINE PO SCH (16:53)
[2018-01-08] MEDS: PARSLEY PO SCH (16:53)
[2018-01-08] MEDS: GARLIC PO SCH (16:53)
[2018-01-08] MEDS: cefTRIAXone 2 GM VIAL IVP SCH (20:52)
[2018-01-09] MEDS: ACETAMINOPHEN 500 MG TAB PO PRN ×3 (04:02→20:28)
[2018-01-09] MEDS: DOCUSATE SODIUM 100 MG CAP PO SCH ×3 (09:00→20:30)
[2018-01-09] MEDS: MULTIVITAMINS TAB PO SCH (11:08)
[2018-01-09] MEDS: VITAMIN E 400 INTLU CAP PO SCH (11:08)
[2018-01-09] MEDS: PANTOPRAZOLE SOD 40 MG TABEC PO SCH (11:08)
[2018-01-09] MEDS: CAL PO SCH ×2 (11:08→17:57)
[2018-01-09] MEDS: CARBAMAZEPINE 200 MG TAB PO SCH ×3 (11:08→22:20)
[2018-01-09] MEDS: VIT D3 PO SCH ×2 (11:08→17:57)
[2018-01-09] MEDS: MAG PO SCH ×2 (11:08→17:57)
[2018-01-09] MEDS: GLUCOSAMINE-CHONDROITIN CAP PO SCH ×3 (11:09→20:28)
--- NOTE | 2018-01-09 11:14 | PT ECF NOTE ---
Type of Note: 2 week Progress Note Primary Medical Diagnosis: Weakness Physical Therapy Evaluation Date: 12/25/17; Progress Note: 01/08/18 SUBJECTIVE: Prior Hospitalization: [facility] acute care; please see 1EQ for details Prior Level of Function: Pt required assistance from caregivers for bed mobility but was able to perform sit<>stand transfers from elevated surfaces and ambulate 15' with either bilateral canes or a wide RW without physical assistance. Pt has 24 hour caregivers plus assistance from home health care. Pt has a stair lift on her stairs and utilizes a "scooter" or wheelchair for longer-distance mobility. Prior Living Status: Bi-level house, Living with family Community Services: Home health care, private caregivers Home Accessibility: Ramp, chair lift Equipment Owned: Front wheeled walker, 2 Canes, Wheelchair, "scooter" Medical Complications/Past Medical History: extensive, please see 1EQ Psychosocial Support: Pt has supportive family, caregivers, home health care Pain Scale (0-10): Pt denies pain at rest. OBJECTIVE: Strength: Right Lower Extremity: 4-/5 knee extension Left Lower Extremity: 3/5 knee extension Right Upper Extremity: decreased R shoulder strength 2/5 Left Upper Extremity: decreased L UE strength throughout including hand rated at approximately 2-/5 throughout. 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 limited B shoulder ROM and limited L hand ROM Bed Mobility: Max A Assistive device: Bed rail, Head of bed elevated Transfers: CGA and slow process Assistive Device: FWW primarily; EZ lift at night or for joint protection at times Gait: Pt was able to ambulate 6-8 ' with FWW in straight line distances with CGA. Attempt made at 90 degree turn to the R) during ambulation, which significantly increased pt paint with rotational aspect at R) knee. ASSESSMENT: Pt presents with decreased independence with functional mobility compared to baseline. Pt will benefit from skilled PT for functional mobility training in order to return to prior level of function. Pt has made slow progress toward her goals but would benefit from further long-term care rehab to fully achieve the indep required to return home, after her upcoming surgical procedure scheduled on Thu01/11/18. Problem List/Current Limitations: Pain, Decreased activity tolerance, Decreased strength, Decreased balance, Generalized weakness, Shortness of breath Short Term Goals: 1. Mod A x1 bed mobility.- Progressing 2. CGA/SBA sit<>stand transfers.- Met 3. CGA/SBA ambulation x 15' with RW.- Pt nita 6-8 ' currently with FWW 4. CGA/SBA ambulation x15' with 2 canes.- not yet addressed with canes Occupational Health Physiotherapist Goals: Return to prior living arrangements. Patient Goals: Return home. Rehabilitation Prognosis: Fair Barriers for Discharge: Pt's poor prior functional status.; Recommend long- term rehab prior to transition home. PLAN: The patient will benefit from skilled physical therapy services 5 times per week for 2 weeks including: Therapeutic Exercise, Therapeutic Activities, Transfer Training, Gait Training, Manual Therapy, ADL's, Safety Training, Neuromuscular Re-educ., Wound Care, Pt/Caregiver Training, Bed Mobility Thank you for this referral. If you have any questions, concerns, or comments about this report or plan, please contact me at . H. Karla Cook, PT, MPT [facility]
[2018-01-09] MEDS: LIDOCAINE 5% PATCH TP SCH (15:17)
[2018-01-09 16:30] VITALS: BP 131/77
[2018-01-09] MEDS: FOLIC ACID/CYANOCOB/PYRIDOXINE PO SCH (17:57)
[2018-01-09] MEDS: PARSLEY PO SCH (17:58)
[2018-01-09] MEDS: GARLIC PO SCH (17:58)
[2018-01-09] MEDS: cefTRIAXone 2 GM VIAL IVP SCH (20:28)
[2018-01-09] MEDS: PATCH REMOVAL 1 EA TOP SCH (20:29)
[2018-01-10] MEDS: ACETAMINOPHEN 500 MG TAB PO PRN ×3 (05:02→21:44)
[2018-01-10 09:50] VITALS: BP 126/69
[2018-01-10] MEDS: DOCUSATE SODIUM 100 MG CAP PO SCH ×2 (10:51→20:45)
[2018-01-10] MEDS: LIDOCAINE 5% PATCH TP SCH (10:51)
[2018-01-10] MEDS: GLUCOSAMINE-CHONDROITIN CAP PO SCH ×3 (10:52→20:45)
[2018-01-10] MEDS: PANTOPRAZOLE SOD 40 MG TABEC PO SCH (10:52)
[2018-01-10] MEDS: VIT D3 PO SCH ×2 (10:52→17:32)
[2018-01-10] MEDS: CAL PO SCH ×2 (10:52→17:32)
[2018-01-10] MEDS: MAG PO SCH ×2 (10:52→17:32)
[2018-01-10] MEDS: MULTIVITAMINS TAB PO SCH (10:53)
[2018-01-10] MEDS: CARBAMAZEPINE 200 MG TAB PO SCH ×3 (10:53→21:44)
[2018-01-10] MEDS: VITAMIN E 400 INTLU CAP PO SCH (10:54)
[2018-01-10] MEDS: FOLIC ACID/CYANOCOB/PYRIDOXINE PO SCH (17:31)
[2018-01-10] MEDS: GARLIC PO SCH (17:32)
[2018-01-10] MEDS: PARSLEY PO SCH (17:32)
[2018-01-10 20:20] VITALS: BP 129/79
[2018-01-10] MEDS: cefTRIAXone 2 GM VIAL IVP SCH (20:45)
[2018-01-10] MEDS: PATCH REMOVAL 1 EA TOP SCH (20:46)
[2018-01-11] MEDS: CARBAMAZEPINE 200 MG TAB PO SCH ×3 (07:26→21:16)
[2018-01-11] MEDS: DOCUSATE SODIUM 100 MG CAP PO SCH ×2 (09:00→21:16)
[2018-01-11] MEDS: LIDOCAINE 5% PATCH TP SCH (09:00)
[2018-01-11] MEDS: CAL PO SCH ×2 (10:00→17:22)
[2018-01-11] MEDS: MULTIVITAMINS TAB PO SCH (10:00)
[2018-01-11] MEDS: VIT D3 PO SCH ×2 (10:00→17:22)
[2018-01-11] MEDS: GLUCOSAMINE-CHONDROITIN CAP PO SCH ×3 (10:00→21:16)
[2018-01-11] MEDS: PANTOPRAZOLE SOD 40 MG TABEC PO SCH (10:00)
[2018-01-11] MEDS: VITAMIN E 400 INTLU CAP PO SCH (10:00)
[2018-01-11] MEDS: MAG PO SCH ×2 (10:00→17:22)
[2018-01-11] MEDS ORDERED: OXYBUTYNIN CHL XL 5 MG TABCR PO PRN (14:00)
--- NOTE | 2018-01-11 14:57 | Medical Nutrition Therapy ---
Nutrition Anthropometrics Height (Inches): 66.00 Height (Calculated Centimeters: 167.660874 Weight (Pounds): 265 Weight (Calculated Kilograms): 120.202 Mike Nutrition Score: Probably Inadequate Mike Nutrition Risk Score: 13 Dietary Referral Nutrition Risk Factors: Nutrition Risk Comment: Physical Findings Physical Appearance: Morbidly Obese 40+ Skin Appearance Skin Appearance: Edema Edema Location Modifier: Left Edema Location: Foot Type of Edema: Degree of Edema: 3+ Gastrointestinal Symptoms GI Symtoms: Tube Present: Bowel Sounds: Recent Bowel Pattern: Stool Characteristics: Brown, Hard Nutritional Diagnosis Nutritional Risk Acuity 3: Morbid Obesity Nutritional Risk Acuity 4: Good Appetite Past Medical History: HTN, Seizure disorder, Lymphedema of both lower extremities, foot surgery, Hip dysplasia Nutritional Acuity: 3-Mild Adjusted Energy Requirement Re: 2725 (22 kcal/kg for morbid obesity) Protein Requirement: 110 (.9 g/kg) Fluid Requirement: 2480 Diet Type: Diet as Tolerated JOSH/REG Nutrition Intervention: Cont diet as ordered Food Likes: She has refused all lunch meals while in ECF Additional Diet Restrictions: PT REQUEST BRFT AT 10:00 AND DINNER AT 5:00 Nutrition Monitoring & Eval Nutrition Goals: Eat 75-100% Meal Nutrition Follow-Up: Good Intake RD Patient Assessment Time: [address] Assessment Type: RD Re-Assessment Patient Nutrition Acuity: 3-Mild Follow Up Date: Jan 19, 2018 Nutritional Comment: 12/26 Pt transferred to ECF unit for ongoing antibiotic treatment. BMI in morbid obesity range at 66.8. Currently on JOSH with intake of 50-75% of two meals in facility. Notable labs include creatinine .5, alk phos 174, tot pro 5.3, alb 2.5. Will cont to monitor and encourage intake. 12/29 No new labs. Continues to have good appetite with late breakfast and dinner meals (only two meals/day). Usually consumes 75-100% of meals. No other nutritional issues at this time. Follow labs, wt, intake, etc. 01/05 Intake average 62% of her 2 meals however pt will eat 100% of a nightime snack 30% of the time. Sepsis has resolved. Alb cont low at 2.8. Cont to monitor and encourage intake. 01/11 Pt eating 100% of 2 meals/day. Wt is down 5%. BMI is in class 3 obesity range with slow wt loss desired. Pt may be eating smaller portions or less snacks than she recieves at home. Also wt loss may be f/t to fluids. Pt cont 3+ edema LE. Anticipate further wt loss when edema resolved. STACEY TURNER Jan 11, 2018 14:57
[2018-01-11 16:48] VITALS: BP 115/54
[2018-01-11] MEDS: GARLIC PO SCH (17:22)
[2018-01-11] MEDS: PARSLEY PO SCH (17:22)
[2018-01-11] MEDS: FOLIC ACID/CYANOCOB/PYRIDOXINE PO SCH (17:22)
[2018-01-11] MEDS: ACETAMINOPHEN 500 MG TAB PO PRN (17:47)
[2018-01-11] MEDS: PATCH REMOVAL 1 EA TOP SCH (21:00)
[2018-01-11] MEDS: MELOXICAM 7.5 MG TAB PO SCH (21:15)
[2018-01-12] MEDS: ACETAMINOPHEN 500 MG TAB PO PRN ×2 (04:53→15:01)
[2018-01-12] MEDS ORDERED: LIDO700A19 TP (06:44)
[2018-01-12] MEDS ORDERED: LEVO-85 PO (06:44)
[2018-01-12] MEDS ORDERED: PANT40TA65 PO (06:44)
--- NOTE | 2018-01-12 06:51 | Hospitalist Depart ---
Discharge Summary Reason for Hosp/Final Diag: (1) Pyelonephritis Status: Acute Hospital Course & Plan: The patient presented with kidney stones and pyelonephritis. She had an elevated WBC and fever. She did have positive urine and blood cultures for Proteus mirabilis. She was initially started on empiric treatment with IV ceftriaxone and vancomycin. The vancomycin was discontinued. A PICC line was placed for antibiotics. Dr. Pedersen performed cystoscopy and l stent placement on 01/11/2018. (2) Renal calculus, right Status: Acute Hospital Course & Plan: She did have an obstructing stone on the right. Please see Dr. Pedersen's notes for management. (3) Septic shock Status: Resolved Hospital Course & Plan: Resolved. She did have an elevated WBC and lactic acidosis. The lactate normalized with IV fluids. Her hypotension resolved. She did receive IV fluid resuscitation, Solu Cortef and vasopressor support with norepinephrine. (4) Lymphedema of both lower extremities Status: Chronic Hospital Course & Plan: This appeared to be chronic. She did have an elevated BNP at 402. Her echocardiogram showed some moderate pulmonary hypertension, but was otherwise unremarkable. PT has been providing wound care instructions. (5) Seizure disorder Status: Chronic Hospital Course & Plan: She was continued on chronic treatment with Tegretol. (6) HTN (hypertension) Status: Chronic Hospital Course & Plan: She had been on chronic treatment with hydrochlorothiazide and lisinopril. Both medications have been stopped due to normal blood pressures off of the medication. (7) Thrombocytopenia Status: Acute Hospital Course & Plan: Resolved. (8) Body mass index (BMI) of 40.0 to 44.9 in adult Status: Chronic Departure Latest Vital Signs Vital Signs 01/11/18 01/11/18 16:48 21:16 Temp 98.2 Pulse 86 Resp 16 B/P (MAP) 115/54 (74) Pulse Ox 93 O2 Delivery Nasal Cannula O2 Flow Rate 2.0 Weight (Pounds): 265 Weight (Ounces): 12.0 Condition: Improved Discharge: [facility] PT/OT Follow Up For: PT Evaluation and Treat, OT Evaluation and Treat Discharge Instructions Home Meds Active Scripts Pantoprazole Sodium (PANTOPRAZOLE SODIUM) 40 Mg Tablet., 40 MG PO QDAY@1000, # 30 TAB Prov:VERENICE ROMAN DO 01/12/18 Lidocaine (Lidocaine) 5 % Adh..patch, 1 EACH TP QDAY, #30 PATCH Prov:VERENICE ROMAN DO 01/12/18 Levofloxacin 500 Mg Tab (LEVAQUIN 500 MG TAB) 500 Mg Tablet, 500 MG PO QDAY@10, #3 TAB Prov:VERENICE ROMAN DO 01/12/18 Reported Medications Glucosamine/Msm/Chondroitin A (GLUCOSAMINE CHONDROIT MSM TAB) 1 Each Tablet, 1 TAB PO TID 12/20/17 Multivit, Iron, Min #5, Fa (STROVITE FORTE CAPLET) 1 Each Tablet, 1 EACH PO QDAY 12/20/17 Diclofenac Sodium 1% Gel (VOLTAREN 1% GEL) 100 Gm Gel..gram., 2-4 GM TOP QDAY 12/20/17 Meloxicam (Mobic) 15 Mg Tablet, 1 TAB PO BID 10/23/12 Carbamazepine (TEGretol (OR EQUIV)) 200 Mg Tab, 200 MG PO TID 10/23/12 Discontinued Reported Medications [axo] No Conflict Check, 1 TAB PO BID "pumpkin tablet for bladder control" 12/20/17 Diet: Regular Activity: As Tolerated Copies to: BURKE SHANE DO; IZZY PEDERSEN MD Venous Thromboembolism Antithrombotics Is Pt On Any Antithrombotics?: No Problem Qualifiers (1) HTN (hypertension): Hypertension type: essential hypertension Qualified Codes: I10 - Essential ( primary) hypertension VERENICE ROMAN DO Jan 12, 2018 06:51
[2018-01-12] MEDS: LIDOCAINE 5% PATCH TP SCH (09:00)
[2018-01-12 10:00] VITALS: BP 126/67
[2018-01-12] MEDS ORDERED: LEVOFLOXACIN 500 MG TAB PO SCH (10:00)
[2018-01-12] MEDS ORDERED: DICLOFENAC SOD 100 GM GEL TOP SCH (10:00)
[2018-01-12] MEDS: MULTIVITAMINS TAB PO SCH (10:32)
[2018-01-12] MEDS: PANTOPRAZOLE SOD 40 MG TABEC PO SCH (10:32)
[2018-01-12] MEDS: DOCUSATE SODIUM 100 MG CAP PO SCH (10:32)
[2018-01-12] MEDS: VITAMIN E 400 INTLU CAP PO SCH (10:33)
[2018-01-12] MEDS: CARBAMAZEPINE 200 MG TAB PO SCH ×2 (10:33→14:57)
[2018-01-12] MEDS: GLUCOSAMINE-CHONDROITIN CAP PO SCH (10:33)
[2018-01-12] MEDS: VIT D3 PO SCH (10:34)
[2018-01-12] MEDS: MELOXICAM 7.5 MG TAB PO SCH (10:34)
[2018-01-12] MEDS: MAG PO SCH (10:34)
[2018-01-12] MEDS: CAL PO SCH (10:34)
[2018-01-12] MEDS ORDERED: OXYB5TAB80 PO (14:00)
[2018-01-12] MEDS ORDERED: VITE400 PO (14:00)
[2018-01-12] MEDS ORDERED: FOLTX PO (14:00)
[2018-01-12] MEDS ORDERED: DOCU-202 PO (14:00)
[2018-01-12] MEDS ORDERED: PARS1TAB PO (14:00)
[2018-01-12] MEDS ORDERED: CALC-1171 PO (14:00)
[2018-01-12] MEDS ORDERED: ACET-2043 PO (14:00)
--- NOTE | 2018-01-13 21:49 | PT ECF NOTE ---
Type of Note: Discharge Note Primary Medical Diagnosis: Weakness Physical Therapy Evaluation Date: 12/25/17; Progress Note: 01/08/18 SUBJECTIVE: Prior Hospitalization: [facility] acute care; please see [employer] for details Prior Level of Function: Pt required assistance from caregivers for bed mobility but was able to perform sit<>stand transfers from elevated surfaces and ambulate 15' with either bilateral canes or a wide RW without physical assistance. Pt has 24 hour caregivers plus assistance from home health care. Pt has a stair lift on her stairs and utilizes a "scooter" or wheelchair for longer-distance mobility. Prior Living Status: Bi-level house, Living with family Community Services: Home health care, private caregivers Home Accessibility: Ramp, chair lift Equipment Owned: Front wheeled walker, 2 Canes, Wheelchair, "scooter" Medical Complications/Past Medical History: extensive, please see [employer] Psychosocial Support: Pt has supportive family, caregivers, home health care Pain Scale (0-10): Pt denies pain at rest. OBJECTIVE: Strength: Right Lower Extremity: 4-/5 knee extension Left Lower Extremity: 3/5 knee extension Right Upper Extremity: decreased R shoulder strength 2/5 Left Upper Extremity: decreased L UE strength throughout including hand rated at approximately 2-/5 throughout. 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 limited B shoulder ROM and limited L hand ROM Bed Mobility: Max A Assistive device: Bed rail, Head of bed elevated Transfers: CGA and slow process Assistive Device: FWW primarily; EZ lift at night or for joint protection at times Gait: Pt was able to ambulate 6-8 ' with FWW in straight line distances with CGA. Attempt made at 90 degree turn to the R) during ambulation, which significantly increased pt paint with rotational aspect at R) knee. ASSESSMENT: Pt presents with decreased independence with functional mobility compared to baseline. Pt will continue to benefit from skilled PT for functional mobility training in order to return to prior level of function. Pt has made slow progress toward her goals but would benefit from further long- term care rehab to fully achieve the indep required to return home. Due to her medical procedure on 01/11/18 pt was without some of her arthritis medications and was not able to make further gains, but also did not regress significantly. It is anticipated that once these medications are resumed, pt will be able to progress as before with strength and functional mobility. Problem List/Current Limitations: Pain, Decreased activity tolerance, Decreased strength, Decreased balance, Generalized weakness, Shortness of breath Short Term Goals: 1. Mod A x1 bed mobility.- Progressing 2. CGA/SBA sit<>stand transfers.- Met 3. CGA/SBA ambulation x 15' with RW.- Pt nita 6-8 ' currently with FWW 4. CGA/SBA ambulation x15' with 2 canes.- not yet addressed with canes [employer] Goals: Return to prior living arrangements. Patient Goals: Return home. Rehabilitation Prognosis: Fair Barriers for Discharge: Pt's poor prior functional status.; Recommend long- term rehab prior to transition home. PLAN: Pt transferring to [facility] for further long-term rehab in order to continue to progress with functional mobility, prior to return home, per pt request. Thank you for this referral. If you have any questions, concerns, or comments about this report or plan, please contact me at . h. Karla Cook, PT, MPT MTDD
== END 2018-01-12 15:30 | DRG 690 ==
LOC: ECF 11:48
PROVIDERS: ADMIT Internal Medicine; ATTEND Internal Medicine
DX: N13.6 Pyonephrosis (principal); I10 Essential (primary) hypertension; B96.4 Proteus (mirabilis) (morganii) as the cause of diseases classified elsewhere; N20.0 Calculus of kidney; I89.0 Lymphedema, not elsewhere classified; G40.909 Epilepsy, unspecified, not intractable, without status epilepticus; I27.20 Pulmonary hypertension, unspecified; D69.6 Thrombocytopenia, unspecified; S81.809A Unspecified open wound, unspecified lower leg, initial encounter; L53.9 Erythematous condition, unspecified; X58.XXXA Exposure to other specified factors, initial encounter; Z88.0 Allergy status to penicillin; Z88.2 Allergy status to sulfonamides; Z86.14 Personal history of Methicillin resistant Staphylococcus aureus infection; Z96.0 Presence of urogenital implants
CPT/HCPCS: 81001; 82040; 82247; 82310; 82374; 82435; 82565; 82947; 84075; 84132; 84155; 84295; 84450; 84460; 84520; 85025; 87088; 97163; 97166; J0696; J7040

== ENCOUNTER → 2018-01-11 | Day surgery (SDC) | payer MEDICARE, MEDICAID ==
--- NOTE | 2018-01-08 16:50 | HISTORY AND PHYSICAL ---
DATE OF ADMISSION: January 11, 2018 CHIEF COMPLAINT History of kidney stones. HISTORY OF PRESENT ILLNESS Patient is a 52-year-old white female who originally presented to the emergency room on December 20 with right flank pain. At that time she was noted to have an approximately 5 x 4 mm stone in the proximal right ureter with some mild hydronephrosis. She was admitted to the hospital, however, shortly after admission she developed a fever of 103 and she was taken to the operating room urgently and had a stent placement. Following stent placement she was started on broad spectrum antibiotics. Urine and blood cultures were obtained. She developed some hypotension and required admission to the ICU for blood pressure support. Her urine culture and both blood cultures eventually grew out Proteus mirabilis which was philippe sensitive. She has subsequently received two weeks of IV Rocephin. A followup urine culture on January 07 by I and O cath has shown no growth. She is now being brought to the operating room for planned treatment of her right ureteral and kidney stones. On her admission CT scan, in addition to the proximal ureteral stones, she was also noted to have two lower pole stones in the right kidney, one measuring 6 x 5 and one measuring 6 x 4 mm with approximately 600 in both stones. She was also noted to have three stones in the left kidney. The largest was approximately 7 mm in size. 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 * Hypertension. * Seizure disorder. * Urge incontinence. PAST SURGICAL HISTORY * Bilateral clubfoot repair. * Left wrist surgery. * Left eye surgery. * Right double-J ureteral stent placement, December 20. ALLERGIES PENICILLIN, AMOXICILLIN and SULFA. CURRENT MEDICATIONS * Tegretol. * Voltaren. * Hydrochlorothiazide. * Lisinopril. * Mobic. * Rocephin. SOCIAL HISTORY Patient lives in [place], [place] and is currently disabled. FAMILY HISTORY Notable for rheumatoid arthritis. REVIEW OF SYSTEMS Patient currently denies fever, chills, nausea, vomiting, chest pain, productive cough, bleeding disorder or chronic headaches. PHYSICAL EXAMINATION GENERAL: Patient is a middle-aged white female in no acute distress. HEENT: Normocephalic and atraumatic. CHEST: Clear to auscultation bilaterally. CARDIOVASCULAR: Regular rate and rhythm. ABDOMEN: Soft, nontender. No masses are palpated. GENITOURINARY: Exam is deferred to the OR. EXTREMITIES: Without clubbing, cyanosis or edema. NEUROLOGIC: Exam is nonfocal. IMPRESSION A 52-year-old white female with history of bilateral kidney stones and obstructing proximal right ureteral stone, status post stent placement and subsequently treatment for urosepsis with Proteus mirabilis. PLAN We will send the patient to the operating room for planned extracorporeal shock wave lithotripsy and possible ureteroscopy with stent exchange on the right side. TING
[~2018-01-11] VITALS: Ht 142.2 cm; Wt 120.2 kg
[~2018-01-11] MED LIST changes: +ACET-2043 PO; +BELLADONNA ALK/OPIUM 60MG SUPP PR ONE; +CALC-1171 PO; +DEXAMETHASONE SOD PHOS 10MG/ML ONE; +DOCU-202 PO; +FAMOTIDINE 20 MG TAB PO ONE; +FOLTX PO; +IOPAMIDOL-200 50 ML VIAL IS ONE; +KETAMINE HCL 200 MG/20 ML MDV ONE; +KETOROLAC 30 MG/ML VIAL ONE; +LEVO-85 PO; +LEVOFLOXACIN 500 MG TAB PO SCH; +LEVOFLOXACIN/D5W*500 MG/100 ML 100 ML IVPB ONE; +LIDO700A19 TP; +LIDOCAINE MPF 1% 5 ML VIAL ONE; +LIDOCAINE/SOD BICARB 8.4% SYR ID ONE; +MIDAZOLAM 2 MG/2 ML VIAL IVP ONE; +NORMOSOL R SOLN(*) 1000 ML BAG 1,000 ML IV PRN; +NS 0.9% 20 ML SDV 20 ML ONE; +ONDANSETRON 4 MG/2 ML VIAL ONE; +OXYB5TAB80 PO; +OXYBUTYNIN CHL XL 5 MG TABCR PO PRN; +PANT40TA65 PO; +PARS1TAB PO; +PROPOFOL EMUL(*) 10MG/ML 20 ML 20 ML ONE; +ROCURONIUM BROM 10 MG/ML 10 ML ONE; +SUGAMMADEX SOD 500 MG/5 ML SDV ONE; +VASOPRESSIN 20 UNIT/ML VIAL ONE; +VITE400 PO; +fentaNYL CITR 100 MCG/2 ML AMP ONE
[2018-01-11 08:08] VITALS: BP 143/81
[2018-01-11 08:46] LABS: INR 1.01
--- NOTE | 2018-01-11 08:58 | RADIOLOGY IMAGING REPORT ---
FACILITY: [facility] PATIENT NAME: Samra Soliz : 1965 MR: [id number] V: [id number] EXAM DATE: ORDERING PHYSICIAN: IZZY CARRINGTON TECHNOLOGIST: Location: [facility] Patient: Samra Soliz : 1965 Visit/Account:[id number] Date of Sevice: 01/11/2018 ADDENDUM #1 ADDENDUM: The adrenal glands are normal in size, although incompletely included. Report Dictated By: Joseph Maza MD at 01/11/2018 9:54 AM Report E-Signed By: Joseph Maza MD at 01/11/2018 9:[address] scan of the abdomen and pelvis without contrast. HISTORY: Preop stone location. COMPARISON: 12/20/2017. [address] images were obtained of the abdomen and pelvis. No oral or intravenous contrast. The scan is limited to evaluation the urinary tract for stone disease. One of the following dose o ptimization techniques was utilized in the performance of this exam: Automated exposure control; adju stment of the mA and/or kV according to the patient's size; or use of an iterative reconstruction te chnique. Specific details can be referenced in the facility's radiology CT exam operational policy. FINDINGS: The liver, gallbladder, pancreas, and spleen are incompletely included. The kidneys are normal in si ze. A stent is present in the right ureter. The superior end of the stent is coiled in the right re nal pelvis. The inferior end of the stent is coiled in the urinary bladder. A 4 mm calcification is present in the posterior aspect of the right renal pelvis. Several other small calcifications measu ring less than 5 mm in diameter are scattered elsewhere in the right kidney. No right hydronephrosis . The left renal pelvis is upper limits of normal in size. Several left renal calcifications are no lo nger present. Two calcifications measuring 4 mm and 6 mm in diameter are present in the region of th e left ureterovesical junction. No left hydronephrosis. The abdominal aorta is normal in size. Multiple small lymph nodes measuring less than 1 cm in diamet er are scattered in the retroperitoneum. Several phleboliths are present in the true pelvis. The ut erus is normal in size. A 1 cm calcification is present in the left side of the uterus. The ovaries are not well visualized. A few diverticula are scattered along the sigmoid colon. Portions of the pelvis are obscured by bony artifacts. Unopacified bowel loops are scattered in the abdomen and pelv is. The appendix is normal in size. Multiple superficial varicosities are present in the lower anterior abdominal wall. The left femoral head is chronically collapsed and fragmented. The left acetabulum is shallow. Chronic superior sub luxation of the left femoral head is unchanged. Moderate scoliosis and severe degenerative changes a re present in the spine. IMPRESSION: Placement of right ureteral stent. 4 mm stone in the right renal pelvis. Several other nonobstructing stones in the right kidney. Migration of two nonobstructing stones into the left ureterovesical junction. Report Dictated By: Joseph Maza MD at 01/11/2018 8:38 AM Report E-Signed By: Joseph Maza MD at 01/11/2018 8:55 AM MARLON:HUEY
--- NOTE | 2018-01-11 12:13 | RADIOLOGY IMAGING REPORT ---
FACILITY: [facility] [place] PATIENT NAME: Samra Soliz : 1965 MR: [id number] V: [id number] EXAM DATE: ORDERING PHYSICIAN: IZZY CARRINGTON TECHNOLOGIST: Location[place] [facility] [place] Patient: Samra Soliz : 1965 Visit/Account:[id number] Date of Sevice: 01/11/2018 C-ARM FLUORO 1 HR HISTORY: KIDNEY STONES RIGHT URETERAL STENT COMPARISON: CT examination from January 11, 2018 FINDINGS: DOSE: Air kerma was 22.84 mGy. Procedural images demonstrate wire and subsequent placement right ureteral stent IMPRESSION: Procedural fluoroscopy Report Dictated By: Owen Kent MD at 01/11/2018 11:49 AM Report E-Signed By: Owen Kent MD at 01/11/2018 12:09 PM WSN:[id number]
--- NOTE | 2018-01-12 04:38 | OPERATIVE REPORT 1 ---
EVENT DATE: January 11, 2018 SURGEON: Abdoulaye Pedersen MD ANESTHESIOLOGIST: Kishore Velarde MD ANESTHESIA: General PREOPERATIVE DIAGNOSIS Bilateral stones with right indwelling ureteral stent. POSTOPERATIVE DIAGNOSIS 1. Left distal ureteral calculi x 2. 2. Right renal calculi x 3 with indwelling ureteral stent. PROCEDURE PERFORMED 1. Cystoscopy. 2. Right semirigid ureteroscopy with stone manipulation. 3. Left internal double J ureteral stent placement. 4. Right double J ureteral stent exchange. 5. Right renal extracorporeal shockwave lithotripsy. ESTIMATED BLOOD LOSS Minimal. IV FLUIDS Crystalloid. DRAINS 1. Bilateral 6 Tuvaluan x 26 cm Contour Microvasive stents. 2. 16 Tuvaluan Murray catheter. PATHOLOGY None. COMPLICATIONS None. CONDITION Patient taken to recovery room awake and in stable condition. STATEMENT OF MEDICAL NECESSITY Patient is a 52-year-old white female who was originally presented to the emergency room December 20, 2017 and was found to have an obstructing proximal ureteral stone measuring 5 x 4 mm in size. However, she developed fever, and was subsequently taken to the operating room and underwent stent placement on the right side. She subsequently grew out Proteus mirabilis in both her urine and blood cultures. This has been appropriately treated, and she is now being brought to the operating room for planned definitive stone treatment. Preoperative low-dose CT scan showed good placement of the stent on the right. She has three stones in the right kidney, one in the mid pole, one in the lower pole and one in the renal pelvis. The one in the renal pelvis was presumably the stone that was previously in the right proximal ureter. Her stone on the left side, however, has migrated from the kidney down to the distal ureter. She has two stones in the intramural and distal ureter on the left side with only mild hydronephrosis. She is currently asymptomatic from her stones on the left side, and she has been appropriately treated with antibiotics for approximately two weeks. Films were discussed, and she is now being brought to the operating room for planned left ureteroscopy, possible stent exchange and replacement and/or extracorporeal shockwave lithotripsy as indicated. DESCRIPTION OF PROCEDURE PERFORMED Patient was brought to the operating room, and after general anesthetic was obtained, she was placed in the dorsal lithotomy position on the cystoscopic table and prepped and draped sterilely. Anesthetic cystoscopy was performed with the 21-Tuvaluan rigid Meléndez sheath. The stent was seen emanating from the right ureteral orifice. The left ureteral orifice was visualized. A light yellowish stone was seen just inside the ureteral orifice on direct visualization. On metal cut off saw operator film, I could not clearly identify the stones in the distal ureter. At this point, a sensor wire was advanced alongside the stone in the ureteral orifice and advanced up the upper pole calyx on the left side by fluoroscopic imaging. This wire was then used to place an 8/10 dilating system. The 8 sheath was removed. A second wire was placed alongside the first wire inside the 10 sheath. The 10 sheath was removed. One wire was secured to the draped as a safety wire, and the next wire was back loaded into the Meléndez semirigid ureteroscope. Ureteroscopy was performed up over the wire. Two stones were encountered just inside the ureteral orifice. These stones were extremely soft in nature and had already been fragmented just from the dilating sheath and beak of the scope. The scope was advanced up to the level of the vessels. No further stones or anomalies were seen. At this point, the larger of the remaining fragments in the ureter were engaged with the triceps grasping forceps. Just using the grasping forceps, the soft stone matrix could be crushed. However, several small fragments were grasped and removed into the bladder. After approximately 10 of these fragments being removed in the bladder , the scope was then readvanced to just above the level of the vessels. Pull out ureteroscopy was performed. There was no evidence of remaining significant stone fragments. There were several smaller sand-like pieces measuring 1 mm or less in size. There was no evidence of significant ureteral trauma or injury and/or perforation. At this point, the safety wire was back loaded onto the scope, and the safety wire was then used to place a 6 Tuvaluan x 26 cm Contour stent on the left side. She was noted to have good curling in the renal pelvis by fluoroscopy and good curling in the bladder by direct vision. At this point , the distal end of the right stent was grasped and brought out through the meatus. The lumen was then cannulated with a 0.035 sensor wire, which was advanced up to the upper pole of the right kidney. The stent on the right side was then removed, and this wire was back loaded into the cystoscopic sheath, and the wire was then used to place a 6 Tuvaluan x 26 cm Contour stent on the right side. Again, curling was noted in the pelvis by fluoroscopy, and in the bladder by direct vision. At this point, the scope was removed. A 16 Tuvaluan Murray catheter was placed with 10 mL in the balloon. The patient was then transferred from the cystoscopic suite to the lithotripsy table, and right renal extracorporeal shockwave lithotripsy was performed. The stones were difficult to visualize on two plane fluoroscopic imaging, given their soft nature and Hounsfield units of only approximately 300-350. The preoperative low -dose CT ESWL was use to guide position of the lithotripsy cross hairs in relation to the renal outline and indwelling stent. Treatment was directed first toward the mid pole stone. Treatment was started in this mid pole area at a power level of 1 and gradually increased to a power level of a 3 over the course of the first 300 shocks. A three-minute pause was then performed, and treatment was resumed, gradually increased to a maximum power setting of 7. She received 1000 shocks to this mid pole area. Attention was next directed to the renal pelvis, where the prior stone had been noted, and again two plane fluoroscopy was used to ensure that the cross hairs remained on this area during treatment. She received 1000 shocks to this area. Lastly, the lower pole stone was targeted in relation to the renal outline and stent, and again 1000 shocks were given to this area. She received a total of 3000 shocks to the right kidney. At the conclusion of the case, she was awakened in the operating room and taken to the recovery area in stable condition. The plan will be to allow the patient to be admitted back to the extended care facility for continued rehab. We will need to see her in followup with another low-dose scan to ensure she is stone free, and then removal of her ureteral stents. We will cover her with Levaquin for the next three days. TING
== END ==
LOC: OR 02:35
PROVIDERS: ATTEND Urology
DX: N20.2 Calculus of kidney with calculus of ureter (principal); I10 Essential (primary) hypertension; Z86.718 Personal history of other venous thrombosis and embolism
CPT/HCPCS: 50590; 52330; 52332; 74176; 76000; 85610; A9270; C1758; C1769; C1894; C2617; J1100; J1885; J1956; J2001; J2405; J2704; J3010; J3490; J7050; Q9966; 87088

== ENCOUNTER → 2018-01-19 | Outpatient (REF) | payer MEDICARE, MEDICAID ==
[~2018-01-19] MED LIST changes: -BELLADONNA ALK/OPIUM 60MG SUPP PR ONE; -DEXAMETHASONE SOD PHOS 10MG/ML ONE; -FAMOTIDINE 20 MG TAB PO ONE; -IOPAMIDOL-200 50 ML VIAL IS ONE; -KETAMINE HCL 200 MG/20 ML MDV ONE; -KETOROLAC 30 MG/ML VIAL ONE; -LEVOFLOXACIN 500 MG TAB PO SCH; -LEVOFLOXACIN/D5W*500 MG/100 ML 100 ML IVPB ONE; -LIDOCAINE MPF 1% 5 ML VIAL ONE; -LIDOCAINE/SOD BICARB 8.4% SYR ID ONE; -MIDAZOLAM 2 MG/2 ML VIAL IVP ONE; -NORMOSOL R SOLN(*) 1000 ML BAG 1,000 ML IV PRN; -NS 0.9% 20 ML SDV 20 ML ONE; -ONDANSETRON 4 MG/2 ML VIAL ONE; -OXYBUTYNIN CHL XL 5 MG TABCR PO PRN; -PROPOFOL EMUL(*) 10MG/ML 20 ML 20 ML ONE; -ROCURONIUM BROM 10 MG/ML 10 ML ONE; -SUGAMMADEX SOD 500 MG/5 ML SDV ONE; -VASOPRESSIN 20 UNIT/ML VIAL ONE; -fentaNYL CITR 100 MCG/2 ML AMP ONE
== END ==
LOC: ZZLCC 20:11
PROVIDERS: ATTEND Family Medicine
DX: A41.9 Sepsis, unspecified organism (principal); I10 Essential (primary) hypertension
CPT/HCPCS: 82310; 82374; 82435; 82565; 82947; 84132; 84295; 84520; 85027

== ENCOUNTER → 2018-02-04 | Outpatient (REF) | payer MEDICARE, MEDICAID ==
[2018-02-04 15:55] LABS: PLATELET COUNT, AUTOMATED 148 K/uL (150-450)
== END ==
LOC: ZZLCC 15:31
PROVIDERS: ATTEND Urology
DX: Z01.812 Encounter for preprocedural laboratory examination (principal); N20.0 Calculus of kidney
CPT/HCPCS: 81001; 85025; 87088

== ENCOUNTER 2018-02-08 01:59 | Observation (INO) | payer MEDICARE, MEDICAID ==
--- NOTE | 2018-02-05 15:16 | HISTORY AND PHYSICAL ---
DATE OF ADMISSION: February 08, 2018 CHIEF COMPLAINT Kidney stones. HISTORY OF PRESENT ILLNESS Patient is a 52-year-old white female who originally presented to the Emergency Room December 20 with a right obstructing proximal ureteral stone with infection secondary to Proteus mirabilis. She was appropriately treated for that. She had a stent placement on her original presentation. On January 11, she was taken back to the operating room and at that time underwent a left semi-rigid ureteroscopy with treatment of two left distal ureteral stones, followed by left stent placement. She also underwent right double-J stent exchange, followed by right extracorporeal shock wave lithotripsy of three stones. She is now being returned to the operating room for anesthetic cystoscopy stent removal with possible followup ureteroscopy and/or extracorporeal shock wave lithotripsy as indicated. 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 * Hypertension. * Seizure disorder. * Urge incontinence. PAST SURGICAL HISTORY * Bilateral club foot repair. * Left wrist surgery. * Left thigh surgery. * Right double-J stent placement on December 20. * Left ureteroscopy with bilateral stent placement and right extracorporeal shock wave lithotripsy on January 11. ALLERGIES PENICIILLIN, AMOXICILLIN, and SULFA. CURRENT MEDICATIONS * Tegretol. * Voltaren. * Hydrochlorothiazide. * Lisinopril. * Mobic. SOCIAL HISTORY Patient lives in [place], [place]. FAMILY HISTORY Notable for rheumatoid arthritis in father. REVIEW OF SYSTEMS Patient denies shortness of breath, nausea, vomiting, fever, chills, gross hematuria, bleeding disorder, or chronic headaches. PHYSICAL EXAMINATION GENERAL: Patient is a mildly obese, middle-age, white female in no acute distress. HEENT: Normocephalic, atraumatic. CHEST: Clear to auscultation bilaterally. CARDIOVASCULAR: Regular rate and rhythm. ABDOMEN: Soft, nontender. No masses are palpated. GENITOURINARY: Deferred to the OR. EXTREMITIES: Without clubbing, cyanosis, or edema. NEUROLOGIC: Nonfocal. IMPRESSION A 52-year-old white female with recent history of obstructing right stone with proteus infection, status post stent placement on that side and appropriate treatment, who is now status post left ureteroscopy for distal stones and right extracorporeal shock wave lithotripsy for renal stones. PLAN We will perform a preoperative low-dose CT scan to evaluate current stone volume and position, followed by anesthetic cystoscopy with possible removal, replacement, and/or ureteroscopy and extracorporeal shock wave lithotripsy as indicated. MTDD
[~2018-02-08] VITALS: Ht 167.6 cm; Wt 121.9 kg
[2018-02-08] VITALS (15 sets, daily range): BP systolic 106–131; BP diastolic 54–80
[2018-02-08] MEDS ORDERED: FAMOTIDINE 20 MG TAB PO ONE (06:30)
[2018-02-08] MEDS ORDERED: NORMOSOL R SOLN(*) 1000 ML BAG 1,000 ML IV PRN (06:30)
[2018-02-08] MEDS ORDERED: MIDAZOLAM 2 MG/2 ML VIAL IVP PRN (06:30)
[2018-02-08] MEDS ORDERED: LEVOFLOXACIN/D5W*500 MG/100 ML 100 ML IVPB ONE (06:30)
[2018-02-08] MEDS ORDERED: LIDOCAINE/SOD BICARB 8.4% SYR ID ONE (06:30)
[2018-02-08] MEDS ORDERED: BELLADONNA ALK/OPIUM 60MG SUPP PR ONE (07:07)
[2018-02-08] MEDS ORDERED: LIDOCAINE MPF 1% 5 ML VIAL ONE (07:12)
[2018-02-08] MEDS ORDERED: DEXAMETHASONE SOD PHOS 10MG/ML ONE (07:12)
[2018-02-08] MEDS ORDERED: PROPOFOL EMUL(*) 10MG/ML 20 ML 20 ML ONE (07:12)
[2018-02-08] MEDS ORDERED: fentaNYL CITR 100 MCG/2 ML AMP ONE (07:12)
[2018-02-08] MEDS ORDERED: ONDANSETRON 4 MG/2 ML VIAL ONE (07:12)
[2018-02-08] MEDS ORDERED: KETAMINE HCL 200 MG/20 ML MDV ONE (07:18)
[2018-02-08] MEDS ORDERED: KETOROLAC 30 MG/ML VIAL ONE (07:22)
[2018-02-08] MEDS ORDERED: SUGAMMADEX SOD 500 MG/5 ML SDV ONE (07:22)
--- NOTE | 2018-02-08 07:24 | RADIOLOGY IMAGING REPORT ---
FACILITY: [facility] PATIENT NAME: Samra Soliz : 1965 MR: [id number] V: [id number] EXAM DATE: ORDERING PHYSICIAN: IZZY CARRINGTON TECHNOLOGIST: Location: [facility] [place] Patient: Samra Soliz : 1965 Visit/Account:[id number] Date of Sevice: 02/08/2018 CT of the abdomen and pelvis without contrast: Indication: History kidney stones. Technique: Helical CT was performed through the abdomen and pelvis without contrast. Multiplanar rec onstructions are reviewed. One of the following dose optimization techniques was utilized in the performance of this exam: Autom ated exposure control; adjustment of the mA and/or kV according to the patient's size; or use of an i terative reconstruction technique. Specific details can be referenced in the facility's radiology C T exam operational policy. Comparison: 01/11/2018 Lower lung arceo: No focal parenchymal or pleural abnormality. Liver: Unremarkable, as visualized. Gallbladder/biliary tree: Within normal limits. Pancreas: Normal in size, shape, and density. Spleen: Unremarkable, as visualized. Adrenal glands: Within normal limits. Kidneys/urinary bladder: Bilateral ureteral stents are now present. Both stents appear to be in satis factory position. There is no dilatation of the collecting structures or ureters. No residual stone f ragments are clearly identified in either kidney, either ureter, or in the bladder lumen. The bladder is otherwise unremarkable. Intestinal structures: Unremarkable and unchanged. Pelvis: The uterus and adnexal structures are compatible, as visualized. Aorta and vascular structures: Within normal limits. Ascites or fluid collections: None seen. Skeletal structures: There are stable chronic degenerative changes in the lumbar spine, pelvis, and l eft hip. Impression: Bilateral stents are now present and appear to be in satisfactory position. No residual s tone fragments are clearly identified in either kidney, either ureter, or in the bladder lumen. Report Dictated By: Evens Way MD at 02/08/2018 7:04 AM Report E-Signed By: Evens Way MD at 02/08/2018 7:19 AM WSN:[id number]
[2018-02-08] MEDS ORDERED: NS 0.9% 3000 ML IRRIGATION BAG IR ONE (07:53)
[2018-02-08] MEDS ORDERED: IOPAMIDOL-200 50 ML VIAL IS ONE (07:57)
--- NOTE | 2018-02-08 09:43 | RADIOLOGY IMAGING REPORT ---
FACILITY: [facility] [place] PATIENT NAME: Samra Soliz : 1965 MR: [id number] V: [id number] EXAM DATE: ORDERING PHYSICIAN: IZZY CARRINGTON TECHNOLOGIST: Location: [facility] [place] Patient: Samra Soliz : 1965 Visit/Account:[id number] Date of Sevice: 02/08/2018 RETROGRADE PYELOGRAM HISTORY: possible stent placement COMPARISON: CT examination from earlier today FINDINGS: DOSE: Air kerma was 26.5 mGy. Fluoroscopic images demonstrate bilateral ureteral stents. There is retrograde opacification of the bilateral urinary systems. Correlate with procedural findings. Removal of stents. IMPRESSION: Bilateral stent removal. Report Dictated By: Owen Kent MD at 02/08/2018 9:12 AM Report E-Signed By: Owen Kent MD at 02/08/2018 9:38 AM WSN:[id number]
[2018-02-08] MEDS ORDERED: MELO-205 PO (10:09)
[2018-02-08] MEDS ORDERED: FOLI5TAB PO (10:09)
[2018-02-08] MEDS ORDERED: LIDO700A19 TD (10:09)
[2018-02-08] MEDS ORDERED: carBAMazepine 200 MG TAB PO SCH (10:45)
[2018-02-08] MEDS: LIDOCAINE 5% PATCH TP SCH (11:30)
--- NOTE | 2018-02-08 12:16 | Hospitalist Consultation ---
History of Present Illness Requesting Physician Dr. Pedersen Reason for Consult Medication Management Chief Complaint s/p stent removal History of Present Illness She is s/p stent removal. It is reported the surgery went well and without complication. History Problems: (1) HTN (hypertension) Status: Chronic (2) Seizure disorder Status: Chronic (3) Hip dysplasia Status: Chronic Home Meds Active Scripts Acetaminophen (ACETAMINOPHEN) 500 Mg Tablet, 1000 MG PO Q8H Y for PAIN for 30 Days, #90 TAB Prov:SHANNON CARVALHO MD 01/12/18 Parsley/Garlic (GARLIC & PARSLEY TABLET) 1 Each Tablet, 2 CAP PO 1700 for 30 Days, #60 CAP Prov:SHANNON CARVALHO MD 01/12/18 Docusate Sodium (DOCUSATE SODIUM) 100 Mg Capsule, 100 MG PO BID for 30 Days, CAPSULE Prov:SHANNON CARVALHO MD 01/12/18 Calcium Carb/Mag Oxide/Vit D3 (CALCIUM MAGNESIUM + D TABLET) 1 Each Tablet, 1 EA PO BIDBS@1000,1700 for 30 Days, #30 TAB Prov:SHANNON CARVALHO MD 01/12/18 Vitamin E (VITAMIN E) 400 Intlu Cap, 400 INTLU PO QDAY@1000 for 30 Days, CAP Prov:SHANNON CARVALHO MD 01/12/18 Reported Medications Folic Acid/Vitamin B Comp W-C (FOLBEE PLUS TABLET) 5 Mg Tablet, 5 MG PO QDAY 02/08/18 Lidocaine (Lidocaine) 5 % Adh..patch, 1 TD QDAY 02/08/18 Meloxicam (MELOXICAM) 7.5 Mg Tablet, 7.5 MG PO BID 02/08/18 Glucosamine/Msm/Chondroitin A (GLUCOSAMINE CHONDROIT MSM TAB) 1 Each Tablet, 1 TAB PO TID 12/20/17 Multivit, Iron, Min #5, Fa (STROVITE FORTE CAPLET) 1 Each Tablet, 1 EACH PO QDAY 12/20/17 Diclofenac Sodium 1% Gel (VOLTAREN 1% GEL) 100 Gm Gel..gram., 2-4 GM TOP QDAY 12/20/17 Carbamazepine (TEGretol (OR EQUIV)) 200 Mg Tab, 200 MG PO TID Seizure Disorder Brand name Tegretol ONLY 10/23/12 Discontinued Reported Medications Meloxicam (Mobic) 15 Mg Tablet, 1 TAB PO BID 10/23/12 Discontinued Scripts Oxybutynin Chloride (OXYBUTYNIN CHLORIDE ER) 5 Mg Tab.er.24, 10 MG PO QDAY Y for PRN for 30 Days, #30 TAB Prov:SHANNON CARVALHO MD 01/12/18 Folic Acid/Cyanocob/Pyridoxine (FOLBEE TABLET) 1 Each Tab, 1 EACH PO 1700 for 30 Days, TAB Prov:SHANNON CARVALHO MD 01/12/18 Pantoprazole Sodium (PANTOPRAZOLE SODIUM) 40 Mg Tablet.dr, 40 MG PO QDAY@1000, # 30 TAB Prov:VERENICE ROMAN DO 01/12/18 Lidocaine (Lidocaine) 5 % Adh..patch, 1 EACH TP QDAY, #30 PATCH Prov:VERENICE ROMAN DO 01/12/18 Levofloxacin 500 Mg Tab (LEVAQUIN 500 MG TAB) 500 Mg Tablet, 500 MG PO QDAY@10, #3 TAB Prov:VERENICE ROMAN DO 01/12/18 Allergies: Coded Allergies: Penicillins (Verified Allergy, Intermediate, UNCONTROLLABLE DIARRHEA, 02/01) amoxicillin (Verified Allergy, Intermediate, UNCONTROLLABLE DIARRHEA, 02/01) Sulfa (Sulfonamide Antibiotics) (Verified Allergy, Unknown, 12/20/17) Patient History: FH: peripheral neuropathy MOTHER, Age:77 Hx Smoking: No Caffeine Intake: Coffee, Tea, Soda Caffeine/Cups Per Day: 0.5L coke, 32 oz instant tea nestea powder Hx Alcohol Use: No Hx Substance Use Disorder: No History of IV Drug Use: No Review of Systems All Systems Reviewed/Normal: Yes, Except as Noted Exam Vital Signs Vital Signs Date Time Temp Pulse Resp B/P (MAP) Pulse Ox O2 Delivery O2 Flow Rate FiO2 02/08/18 11:30 97.8 16 02/08/18 11:03 96 Nasal Cannula 1.0 02/08/18 11:00 116/62 (80) 02/08/18 10:45 60 General Appearance: Alert, Awake, No Acute Distress, Afebrile Neuro: No Gross deficits Cardiovascular: Regular Rate and Rhythm Respiratory: No Respiratory Distress, Clear to Auscultation Psych: Alert & Oriented X3, Appropriate Mood & Affect Assessment and Plan Problems: (1) S/P cystoscopy Assessment & Plan: Managed by Dr. Pedersen. (2) Seizure disorder Status: Chronic Assessment & Plan: She is on chronic treatment with Tegretol. (3) Hip dysplasia Status: Chronic Assessment & Plan: She is on chronic treatment with Lidocaine patches and Meloxicam. We have restarted the Lidocaine patch, but held the Meloxicam. Venous Thromboembolism Antithrombotics Is Pt On Any Antithrombotics?: No Prophylaxis Tx Contraindicated Pharmacological Contraindicati: Surgical Contraindication Exam Sepsis Risk: No Definite Risk GALI DALEY REMOTELY PILOTED VEHICLE CONTROLLER Feb 08, 2018 12:16
[2018-02-08] MEDS: carBAMazepine 200 MG TAB PO SCH ×2 (15:11→20:33)
[2018-02-08] MEDS: MELOXICAM 7.5 MG TAB PO SCH (19:55)
[2018-02-08] MEDS: ACETAMINOPHEN 500 MG TAB PO PRN (20:24)
[2018-02-08] MEDS: DOCUSATE SODIUM 100 MG CAP PO SCH (20:25)
[2018-02-08] MEDS ORDERED: MELOXICAM 7.5 MG TAB PO SCH (21:00)
[2018-02-08] MEDS ORDERED: PATCH REMOVAL 1 EA TP SCH (21:00)
--- NOTE | 2018-02-09 03:55 | OPERATIVE REPORT 1 ---
EVENT DATE: February 08, 2018 SURGEON: Abdoulaye Pedersen MD ANESTHESIOLOGIST: Kishore Velarde MD ANESTHESIA: General. PREOPERATIVE DIAGNOSIS History of bilateral kidney stones with bilateral indwelling ureteral stents. POSTOPERATIVE DIAGNOSIS History of bilateral kidney stones with bilateral indwelling ureteral stents. PROCEDURE PERFORMED 1. Cystoscopy. 2. Grasping and removal of bilateral ureteral stents. 3. Grasping and removal of small stone from bladder. 4. Bilateral retrograde pyelograms. ESTIMATED BLOOD LOSS Minimal. IV FLUIDS Crystalloids. DRAINS None. COMPLICATIONS None. CONDITION Patient taken to recovery room awake and in stable condition. STATEMENT OF MEDICAL NECESSITY The patient is a 52-year-old white female who recently presented with a Proteus mirabilis urosepsis from an obstructing right proximal stone. She underwent stent placement and appropriate IV antibiotic treatment. She was returned to the operating room on January 05, 2018, at which time she underwent left ureteroscopy, fragmentation of left distal stones with stent placement, as well as exchange of her right stent and extracorporeal shockwave lithotripsy of her kidney stones. Her low-dose CT scan today revealed good stent placement. She had no ureteral or kidney stones by my interpretation. She is now being brought to the operating room for planned stent removal with possible ureteroscopy as indicated. DESCRIPTION OF PROCEDURE PERFORMED Patient was brought to the operating room. After general anesthetic was obtained, she was placed in the dorsal lithotomy position, prepped and draped in usual sterile manner. Anesthetic cystoscopy was performed with the 21- [place] rigid Meléndez sheath and the 30 degree lens. Both stents were seen emanating from the respective bilateral ureteral orifice. The left stent was first grasped at its distal end and gently removed intact, followed by the right side. The scope was replaced. There were two small stones in the dependent portion of the bladder measuring approximately 1 x 2 mm. Both of these were individually grasped and removed. Following this, bilateral retrograde pyelograms were performed using an 8 [place] cone tip catheter and 7 mL of contrast material. The ureters were completely evaluated, and there was no evidence of obstruction or filling defects along either ureter. The right renal pelvis was poorly opacified, but both sides had prompt drainage. At this point, the patient's bladder was drained through the cystoscopic sheath. She was given a B and O suppository per rectally at the conclusion of the case. She was awakened in the operating room and taken to the recovery area in stable condition. DISCHARGE INSTRUCTIONS The plan will be to allow the patient to be discharged home today on seven days of Levaquin, Colace, and she has also been given a prescription for Ditropan XL 10 mg for her urge incontinence symptoms. I will plan to see her in the urology clinic in six weeks with a low-dose CT scan to evaluate treatment results and ensure she has no residual hydronephrosis. TING
[2018-02-09 03:58] VITALS: BP 135/79
[2018-02-09 07:31] VITALS: BP 104/83
[2018-02-09] MEDS: MELOXICAM 7.5 MG TAB PO SCH (09:05)
[2018-02-09] MEDS: DOCUSATE SODIUM 100 MG CAP PO SCH (09:06)
[2018-02-09] MEDS: LIDOCAINE 5% PATCH TP SCH (09:06)
[2018-02-09] MEDS: carBAMazepine 200 MG TAB PO SCH ×2 (09:07→14:07)
[2018-02-09] MEDS: ACETAMINOPHEN 500 MG TAB PO PRN (09:07)
--- NOTE | 2018-02-09 09:23 | Hospitalist Progress Note ---
Subjective Progress Notes Subjective She has no complaints this morning. Patient Complains of: Cardiovascular: No: Chest Pain Respiratory: No: Shortness of Breath Physical Exam Vital Signs Date Time Temp Pulse Resp B/P (MAP) Pulse Ox O2 Delivery O2 Flow Rate FiO2 02/09/18 07:33 90 Room Air 02/09/18 07:31 98.6 59 14 104/83 (90) 02/09/18 03:58 1.0 General Appearance: Alert, Awake, No Acute Distress, Afebrile Neuro: No Gross deficits Cardiovascular: Regular Rate and Rhythm Respiratory: No Respiratory Distress, Clear to Auscultation GI: Soft and Non-Tender Psych: Alert & Oriented X3, Appropriate Mood & Affect Assessment and Plan Problems: (1) S/P cystoscopy Assessment & Plan: Managed by Dr. Pedersen. (2) Seizure disorder Status: Chronic Assessment & Plan: She is on chronic treatment with Tegretol. (3) Hip dysplasia Status: Chronic Assessment & Plan: She is on chronic treatment with Lidocaine patches and Meloxicam. Exam Sepsis Risk: No Definite Risk GALI DALEY ROTARY PUMP OPERATOR Feb 09, 2018 09:23
[2018-02-09 09:34] VITALS: Ht 167.6 cm; Wt 121.9 kg
[2018-02-09] MEDS ORDERED: LEVO-85 PO (11:28)
[2018-02-09] MEDS ORDERED: OXYB10TA21 PO (11:31)
[2018-02-09] MEDS ORDERED: DOCU-416 PO (11:32)
== END 2018-02-09 11:07 | disposition home health service (06) ==
LOC: OR 01:59 → MED 09:35
PROVIDERS: ADMIT Urology; ATTEND Urology
DX: Z87.442 Personal history of urinary calculi (principal)
CPT/HCPCS: 52310; 74176; 74420; A9270; G0378; J1100; J1885; J1956; J2001; J2405; J2704; J3010; J3490; Q9966

== ENCOUNTER 2018-02-11 15:45 | Observation (INO) | payer MEDICARE, MEDICAID ==
[~2018-02-11] VITALS: Ht 167.6 cm; Wt 119.1 kg
[~2018-02-11 15:45] MED LIST changes: -CELE-1 PO; -ENOX120D5 SQ; -WARF-1 PO
--- NOTE | 2018-02-11 15:56 | ER Report ---
History and Physical Time Seen By MD: 15:55 HPI/ROS CHIEF COMPLAINT: Left hip pain HISTORY OF PRESENT ILLNESS: 53-year-old female patient presents to emergency room with complaint of left hip pain. Patient was admitted to the hospital last month with a diagnosis of kidney stone. She was admitted to extended care and ultimately placed in [facility]. She states that she was discharged earlier this week. She was going into her bedroom last night when she felt her left hip give out on her. She states she did not fall, she was able to get to her bed. She states that this morning she is able to get up, ambulate around the house with a assistance of an 8. She states that she ended up getting into her chair. She states she was walking slowly, however she was moving. They came in to evaluate her for physical therapy this afternoon. She states that it took 15 minutes for her to get out of her chair. She states that time that she fell she was unable to take care of herself at home and EMS was contacted for her to come into the emergency room. Patient does have a history of hip dysplasia on the left side. She denies having any fevers, chills, nausea, vomiting or diarrhea. Patient has not taken any medication for this. REVIEW OF SYSTEMS: Respiratory: No cough, no dyspnea. Cardiovascular: No chest pain, no palpitations. Gastrointestinal: No vomiting, no abdominal pain. Musculoskeletal: As noted above Allergies: Coded Allergies: Penicillins (Verified Allergy, Intermediate, UNCONTROLLABLE DIARRHEA, 02/01) amoxicillin (Verified Allergy, Intermediate, UNCONTROLLABLE DIARRHEA, 02/01) Sulfa (Sulfonamide Antibiotics) (Verified Allergy, Unknown, 12/20/17) Home Meds Active Scripts Acetaminophen (ACETAMINOPHEN) 500 Mg Tablet, 1000 MG PO Q8H Y for PAIN for 30 Days, #90 TAB Prov:SHANNON CARVALHO MD 01/12/18 Parsley/Garlic (GARLIC & PARSLEY TABLET) 1 Each Tablet, 2 CAP PO 1700 for 30 Days, #60 CAP Prov:SHANNON CARVALHO MD 01/12/18 Docusate Sodium (DOCUSATE SODIUM) 100 Mg Capsule, 100 MG PO BID for 30 Days, CAPSULE Prov:SHANNON CARVALHO MD 01/12/18 Calcium Carb/Mag Oxide/Vit D3 (CALCIUM MAGNESIUM + D TABLET) 1 Each Tablet, 1 EA PO BIDBS@1000,1700 for 30 Days, #30 TAB Prov:SHANNON CARVALHO MD 01/12/18 Vitamin E (VITAMIN E) 400 Intlu Cap, 400 INTLU PO QDAY@1000 for 30 Days, CAP Prov:SHANNON CARVALHO MD 01/12/18 Reported Medications Docusate Sodium (COLACE) 100 Mg Capsule, 100 MG PO BID, #30 CAPSULE 02/09/18 Oxybutynin Chloride (DITROPAN XL) 10 Mg Tab.er.24, 10 MG PO QDAY Y for BLADDER SPASMS, #30 TAB 02/09/18 Levofloxacin 500 Mg Tab (LEVAQUIN 500 MG TAB) 500 Mg Tablet, 500 MG PO, #7 TAB 02/09/18 Folic Acid/Vitamin B Comp W-C (FOLBEE PLUS TABLET) 5 Mg Tablet, 5 MG PO QDAY 02/08/18 Lidocaine (Lidocaine) 5 % Adh..patch, 1 TD QDAY 02/08/18 Meloxicam (MELOXICAM) 7.5 Mg Tablet, 7.5 MG PO BID 02/08/18 Glucosamine/Msm/Chondroitin A (GLUCOSAMINE CHONDROIT MSM TAB) 1 Each Tablet, 1 TAB PO TID 12/20/17 Multivit, Iron, Min #5, Fa (STROVITE FORTE CAPLET) 1 Each Tablet, 1 EACH PO QDAY 12/20/17 Diclofenac Sodium 1% Gel (VOLTAREN 1% GEL) 100 Gm Gel..gram., 2-4 GM TOP QDAY 12/20/17 Carbamazepine (TEGretol (OR EQUIV)) 200 Mg Tab, 200 MG PO TID Seizure Disorder Brand name Tegretol ONLY 10/23/12 Discontinued Reported Medications Meloxicam (Mobic) 15 Mg Tablet, 1 TAB PO BID 10/23/12 Past Medical/Surgical History Patient has a past medical history of seizures, DVT, hypertension, kidney stones , hip dysplasia, chronic pain, clubfeet, osteoarthritis, lymphedema. Patient has surgical history of stent placement, clubfeet repair, lazy eye repair. Reviewed Nurses Notes: Yes Hx Smoking: No Hx Substance Use Disorder: No Hx Alcohol Use: No Constitutional Vital Sign - Last 24 Hours 02/11/18 02/11/18 02/11/18 02/11/18 15:48 15:51 16:00 16:15 Temp 97.8 Pulse 72 74 Resp 20 B/P (MAP) 126/69 126/69 (88) 120/69 (86) Pulse Ox 96 92 O2 Delivery Room Air 02/11/18 02/11/18 02/11/18 02/11/18 16:30 16:45 17:00 17:27 Pulse 65 77 B/P (MAP) 128/89 (102) 130/78 (95) Pulse Ox 93 02/11/18 02/11/18 02/11/18 17:32 18:00 18:02 Pulse 73 78 B/P (MAP) 125/74 (91) Pulse Ox 97 91 Physical Exam General Appearance: The patient is alert, has no immediate need for airway protection and no current signs of toxicity. Respiratory: Chest is non tender, lungs are clear to auscultation. Cardiac: regular rate and rhythm Gastrointestinal: Abdomen is soft and non tender, no masses, bowel sounds normal. Musculoskeletal: Neck: Neck is supple and non tender. Extremities have full range of motion and are non tender. Patient has tenderness to the left hip, she does have some swelling to the left upper leg. Skin: No rashes or lesions. DIFFERENTIAL DIAGNOSIS: After history and physical exam differential diagnosis was considered for fracture, contusion, musculoskeletal pain, DVT. Medical Decision Making Data Points Result Diagram: 02/11/18 1629 02/11/18 1629 Laboratory Hematology Test 02/11/18 16:29 Red Blood Count 4.89 M/uL (4.17-5.56) Mean Corpuscular Volume 88.1 fL (80.0-96.0) Mean Corpuscular Hemoglobin 29.8 pg (26.0-33.0) Mean Corpuscular Hemoglobin Concent 33.8 g/dL (32.0-36.0) Red Cell Distribution Width 15.2 % (11.5-14.5) Mean Platelet Volume 8.0 fL (7.2-11.1) Neutrophils (%) (Auto) 71.8 % (39.4-72.5) Lymphocytes (%) (Auto) 19.6 % (17.6-49.6) Monocytes (%) (Auto) 7.9 % (4.1-12.4) Eosinophils (%) (Auto) 0.0 % (0.4-6.7) Basophils (%) (Auto) 0.7 % (0.3-1.4) Nucleated RBC Relative Count (auto) 0.2 /100WBC Neutrophils # (Auto) 3.2 K/uL (2.0-7.4) Lymphocytes # (Auto) 0.9 K/uL (1.3-3.6) Monocytes # (Auto) 0.3 K/uL (0.3-1.0) Eosinophils # (Auto) 0.0 K/uL (0.0-0.5) Basophils # (Auto) 0.0 K/uL (0.0-0.1) Nucleated RBC Absolute Count (auto) 0.01 K/uL Prothrombin Time 13.1 seconds (12.0-14.4) Prothromb Time International Ratio 0.99 Activated Partial Thromboplast Time 24 seconds (23-35) Sodium Level 141 mmol/L (137-145) Potassium Level 4.0 mmol/L (3.5-5.0) Chloride Level 102 mmol/L (98-107) Carbon Dioxide Level 28 mmol/L (22-31) Blood Urea Nitrogen 18 mg/dl (7-18) Creatinine 0.60 mg/dl (0.52-1.04) Glomerular Filtration Rate Calc > 60.0 Random Glucose 106 mg/dl (75-110) Calcium Level 9.5 mg/dl (8.4-10.2) Total Bilirubin 0.4 mg/dl (0.2-1.3) Aspartate Amino Transf (AST/SGOT) 24 U/L (0-35) Alanine Aminotransferase (ALT/SGPT) 33 U/L (0-56) Alkaline Phosphatase 139 U/L (0-126) Total Protein 6.7 gm/dl (6.3-8.2) Albumin 3.6 g/dl (3.5-5.0) Chemistry Test 02/11/18 16:29 White Blood Count 4.4 k/uL (4.5-11.0) Red Blood Count 4.89 M/uL (4.17-5.56) Hemoglobin 14.6 g/dL (12.0-16.0) Hematocrit 43.1 % (34.0-47.0) Mean Corpuscular Volume 88.1 fL (80.0-96.0) Mean Corpuscular Hemoglobin 29.8 pg (26.0-33.0) Mean Corpuscular Hemoglobin Concent 33.8 g/dL (32.0-36.0) Red Cell Distribution Width 15.2 % (11.5-14.5) Platelet Count 134 K/uL (150-450) Mean Platelet Volume 8.0 fL (7.2-11.1) Neutrophils (%) (Auto) 71.8 % (39.4-72.5) Lymphocytes (%) (Auto) 19.6 % (17.6-49.6) Monocytes (%) (Auto) 7.9 % (4.1-12.4) Eosinophils (%) (Auto) 0.0 % (0.4-6.7) Basophils (%) (Auto) 0.7 % (0.3-1.4) Nucleated RBC Relative Count (auto) 0.2 /100WBC Neutrophils # (Auto) 3.2 K/uL (2.0-7.4) Lymphocytes # (Auto) 0.9 K/uL (1.3-3.6) Monocytes # (Auto) 0.3 K/uL (0.3-1.0) Eosinophils # (Auto) 0.0 K/uL (0.0-0.5) Basophils # (Auto) 0.0 K/uL (0.0-0.1) Nucleated RBC Absolute Count (auto) 0.01 K/uL Prothrombin Time 13.1 seconds (12.0-14.4) Prothromb Time International Ratio 0.99 Activated Partial Thromboplast Time 24 seconds (23-35) Glomerular Filtration Rate Calc > 60.0 Calcium Level 9.5 mg/dl (8.4-10.2) Total Bilirubin 0.4 mg/dl (0.2-1.3) Aspartate Amino Transf (AST/SGOT) 24 U/L (0-35) Alanine Aminotransferase (ALT/SGPT) 33 U/L (0-56) Alkaline Phosphatase 139 U/L (0-126) Total Protein 6.7 gm/dl (6.3-8.2) Albumin 3.6 g/dl (3.5-5.0) Coagulation Test 02/11/18 16:29 Prothrombin Time 13.1 seconds Prothromb Time International Ratio 0.99 Activated Partial Thromboplast Time 24 seconds EKG/Imaging Imaging Exam type: VENOUS DOPP LOW LEFT EXTREMITY History: Swelling of left leg Comparison: January 29, 2016. Findings: Intraluminal thrombus is identified in the left common femoral vein left greater saphenous vein at its junction with the left common femoral vein proximal left superficial femoral vein. The mid left superficial femoral vein and distal left superficial femoral vein appeared patent. Left popliteal vein was not well-seen due to soft tissue edema flow is identified in the left posterior tibial vein peroneal vein and anterior tibial vein which were compressible. Thrombus is identified in superficial veins from the mid left thigh into the calf IMPRESSION: 1. Finds are consistent with DVT in the left common femoral vein greater saphenous vein proximal left superficial femoral vein Superficial venous thrombus also identified from the mid thigh into the left calf Results were called to JUAN ALBERTO SPRINGER at 02/11/2018 5:25 PM. Report Dictated By: Cindy Mustafa MD at 02/11/2018 5:19 PM Report E-Signed By: Cindy Mustafa MD at 02/11/2018 5:25 PM INDICATION: hip pain. DATE: 02/11/2018 4:37 PM. TECHNIQUE: 2 views of the left hip. COMPARISON: CT abdomen and pelvis of January 11, 2018. FINDINGS: Degenerative findings are markedly severe at the left hip with superior subluxation of the femoral head at the dysplastic glenoid. The femoral head is depressed and chronically distorted with extensive bony sclerosis. The acetabulum is also markedly sclerotic. The overall appearance is similar to the prior study. Degenerative findings are severe within the incompletely imaged lumbar spine. IMPRESSION: Severe degenerative findings at the left hip with a markedly dysplastic femoral head and acetabulum. The abnormal geometry limits evaluation for acute fracture , but there is no definite change from prior imaging. Correlate with trauma history. Report Dictated By: Donald Matthews MD at 02/11/2018 4:37 PM Report E-Signed By: Donald Matthews MD at 02/11/2018 4:43 PM ED Course/Re-evaluation ED Course Patient was admitted exam room, history and physical obtained. Differential diagnoses were considered. On examination patient has swelling to the left lower extremity, pain to the left hip. A venipuncture was done and a CBC, CMP, PT and PTT were obtained. X-rays done of the left hip, ultrasound was done of the left lower extremity. Patient did have a negative x-ray of the left hip, although with her hip dysplasia is difficult to rule out any discrete fracture. The venogram showed a DVT in the greater saphenous vein as well as the common femoral vein. I discussed the results with patient. I did give her the option to go home on anticoagulation. Patient refused stating she was unable to walk. I discussed the case with Dr. Garcia, hospitalist, who recommended inform the patient that the DVT is not an admittable diagnosis and her insurance wouldn't pay for that. I spoke with the patient she states that she is unable to move around and will need to be admitted. Patient will be admitted to the hospital so that diagnosis of DVT. Decision to Disposition Date: Feb 11, 2018 Decision to Disposition Time: 18:02 Depart Departure Latest Vital Signs Vital Signs Date Time Temp Pulse Resp B/P (MAP) Pulse Ox O2 Delivery O2 Flow Rate FiO2 02/11/18 18:02 78 91 02/11/18 18:00 125/74 (91) 02/11/18 15:48 97.8 20 Room Air Impression: Primary Impression: DVT (deep venous thrombosis) Condition: Condition Unchanged Disposition: Admitted from ER Referrals: BURKE SHANE DO (PCP) Problem Qualifiers Primary Impression: DVT (deep venous thrombosis) DVT location: lower extremity Affected thrombotic vein of extremity: femoral Chronicity: acute Laterality: left Qualified Codes: I82.412 - Acute embolism and thrombosis of left femoral vein JUAN ALBERTO SPRINGER Feb 11, 2018 15:56
[2018-02-11 16:36] LABS: PLATELET COUNT, AUTOMATED 134 K/uL (150-450)
[2018-02-11 16:46] LABS: INR 0.99
--- NOTE | 2018-02-11 16:46 | RADIOLOGY IMAGING REPORT ---
FACILITY: [facility] - [place], [place] PATIENT NAME: Samra Soliz : 1965 MR: [id number] V: [id number] EXAM DATE: ORDERING PHYSICIAN: JUAN ALBERTO SPRINGER TECHNOLOGIST: Location: [facility] Patient: Samra Soliz : 1965 Visit/Account:[id number] Date of Sevice: 02/11/2018 INDICATION: hip pain. DATE: 02/11/2018 4:37 PM. TECHNIQUE: 2 views of the left hip. COMPARISON: CT abdomen and pelvis of January 11, 2018. FINDINGS: Degenerative findings are markedly severe at the left hip with superior subluxation of the femoral head at the dysplastic glenoid. The femoral head is depressed and chronically distorted with extensive bony sclerosis. The acetabulum is also markedly sclerotic. The overall appearance is simila r to the prior study. Degenerative findings are severe within the incompletely imaged lumbar spine. IMPRESSION: Severe degenerative findings at the left hip with a markedly dysplastic femoral head and acetabulum. The abnormal geometry limits evaluation for acute fracture, but there is no definite change from prio r imaging. Correlate with trauma history. Report Dictated By: Donald Matthews MD at 02/11/2018 4:37 PM Report E-Signed By: Donald Matthews MD at 02/11/2018 4:43 PM WSN:[id number]
--- NOTE | 2018-02-11 17:27 | RADIOLOGY IMAGING REPORT ---
FACILITY: [facility] PATIENT NAME: Samra Soliz : 1965 MR: [id number] V: [id number] EXAM DATE: ORDERING PHYSICIAN: JUAN ALBERTO SPRINGER TECHNOLOGIST: Location: [facility] Patient: Samra Soliz : 1965 Visit/Account:[id number] Date of Sevice: 02/11/2018 Exam type: VENOUS DOPP LOW LEFT EXTREMITY History: Swelling of left leg Comparison: January 29, 2016. Findings: Intraluminal thrombus is identified in the left common femoral vein left greater saphenous vein at it s junction with the left common femoral vein proximal left superficial femoral vein. The mid left aparicio perficial femoral vein and distal left superficial femoral vein appeared patent. Left popliteal vein was not well-seen due to soft tissue edema flow is identified in the left posterior tibial vein irma dunia vein and anterior tibial vein which were compressible. Thrombus is identified in superficial ve ins from the mid left thigh into the calf IMPRESSION: 1. Finds are consistent with DVT in the left common femoral vein greater saphenous vein proximal lef t superficial femoral vein Superficial venous thrombus also identified from the mid thigh into the left calf Results were called to JUAN ALBERTO PSRINGER at 02/11/2018 5:25 PM. Report Dictated By: Cindy Mustafa MD at 02/11/2018 5:19 PM Report E-Signed By: Cindy Mustafa MD at 02/11/2018 5:25 PM WSN:[id number]
[2018-02-11 18:31] VITALS: BP 131/69
[2018-02-11] MEDS ORDERED: OXYBUTYNIN CHL XL 5 MG TABCR PO PRN (20:05)
--- NOTE | 2018-02-11 20:16 | History & Physical ---
History of Present Illness Chief Complaint Leg pain History of Present Illness She did present to the emergency room with complaints of pain and swelling in the left leg. This limited her to the point where she was unable to stand on her own. She does have a history of prior DVT, but has been off anticoagulation for some time. History Problems: (1) Renal calculus, right Status: Chronic (2) Lymphedema of both lower extremities Status: Chronic (3) Body mass index (BMI) of 40.0 to 44.9 in adult Status: Chronic (4) Seizure disorder Status: Chronic (5) History of foot surgery (6) S/P cystoscopy Home Meds Active Scripts Acetaminophen (ACETAMINOPHEN) 500 Mg Tablet, 1000 MG PO Q8H Y for PAIN for 30 Days, #90 TAB Prov:SHANNON CARVALHO MD 01/12/18 Parsley/Garlic (GARLIC & PARSLEY TABLET) 1 Each Tablet, 2 CAP PO 1700 for 30 Days, #60 CAP Prov:SHANNON CARVALHO MD 01/12/18 Docusate Sodium (DOCUSATE SODIUM) 100 Mg Capsule, 100 MG PO BID for 30 Days, CAPSULE Prov:SHANNON CARVALHO MD 01/12/18 Calcium Carb/Mag Oxide/Vit D3 (CALCIUM MAGNESIUM + D TABLET) 1 Each Tablet, 1 EA PO BIDBS@1000,1700 for 30 Days, #30 TAB Prov:SHANNON CARVALHO MD 01/12/18 Vitamin E (VITAMIN E) 400 Intlu Cap, 400 INTLU PO QDAY@1000 for 30 Days, CAP Prov:SHANNON CARVALHO MD 01/12/18 Reported Medications Docusate Sodium (COLACE) 100 Mg Capsule, 100 MG PO BID, #30 CAPSULE 02/09/18 Oxybutynin Chloride (DITROPAN XL) 10 Mg Tab.er.24, 10 MG PO QDAY Y for BLADDER SPASMS, #30 TAB 02/09/18 Levofloxacin 500 Mg Tab (LEVAQUIN 500 MG TAB) 500 Mg Tablet, 500 MG PO, #7 TAB 02/09/18 Folic Acid/Vitamin B Comp W-C (FOLBEE PLUS TABLET) 5 Mg Tablet, 5 MG PO QDAY 02/08/18 Lidocaine (Lidocaine) 5 % Adh..patch, 1 TD QDAY 02/08/18 Meloxicam (MELOXICAM) 7.5 Mg Tablet, 7.5 MG PO BID 02/08/18 Glucosamine/Msm/Chondroitin A (GLUCOSAMINE CHONDROIT MSM TAB) 1 Each Tablet, 1 TAB PO TID 12/20/17 Multivit, Iron, Min #5, Fa (STROVITE FORTE CAPLET) 1 Each Tablet, 1 EACH PO QDAY 12/20/17 Diclofenac Sodium 1% Gel (VOLTAREN 1% GEL) 100 Gm Gel..gram., 2-4 GM TOP QDAY 12/20/17 Carbamazepine (TEGretol (OR EQUIV)) 200 Mg Tab, 200 MG PO TID Seizure Disorder Brand name Tegretol ONLY 10/23/12 Discontinued Reported Medications Meloxicam (Mobic) 15 Mg Tablet, 1 TAB PO BID 10/23/12 Allergies: Coded Allergies: Penicillins (Verified Allergy, Intermediate, UNCONTROLLABLE DIARRHEA, 02/01) amoxicillin (Verified Allergy, Intermediate, UNCONTROLLABLE DIARRHEA, 02/01) Sulfa (Sulfonamide Antibiotics) (Verified Allergy, Unknown, 12/20/17) Patient History: CVA FATHER, , Age:76 FH: peripheral neuropathy MOTHER, Age:77 Hx Smoking: No Exposure to Second Hand Smoke?: No Caffeine Intake: Coffee, Tea, Soda Caffeine/Cups Per Day: 1 cup coffee, 500 ml coke per day Hx Alcohol Use: No Hx Substance Use Disorder: No Review of Systems All Systems Reviewed/Normal: Yes Exam Vital Signs Vital Signs Date Time Temp Pulse Resp B/P (MAP) Pulse Ox O2 Delivery O2 Flow Rate FiO2 02/11/18 18:31 98.8 67 20 131/69 (89) 92 Room Air Neuro: No Gross deficits Eyes: PERRLA Cardiovascular: Regular Rate and Rhythm Respiratory: Clear to Auscultation GI: Abd Soft and Non-Tender Extremities: Edema Integumentary: No Cyanosis Medical Decision Making Data Points Result Diagram: 02/11/18 1629 02/11/18 1629 EKG / Imaging Imaging Venous ultrasound reviewed. Assessment and Plan Problems: (1) DVT (deep venous thrombosis) Status: Acute Assessment & Plan: She was found to have a clot in the left leg. She has been started on treatment with Xarelto. (2) Seizure disorder Status: Chronic Assessment & Plan: She is on chronic treatment with Tegretol. (3) Pyelonephritis Status: Acute Assessment & Plan: She does have a recent history of pyelonephritis with renal stones. She is followed by Dr. Pedersen for this and he recently placed her back on levofloxacin. (4) Weakness Assessment & Plan: PT and OT have been consulted. Copies to: IZZY PEDERSEN MD Venous Thromboembolism Antithrombotics Is Pt On Any Antithrombotics?: Yes Exam Sepsis Risk: No Definite Risk Problem Qualifiers (1) DVT (deep venous thrombosis): DVT location: lower extremity Affected thrombotic vein of extremity: femoral Chronicity: acute Laterality: left Qualified Codes: I82.412 - Acute embolism and thrombosis of left femoral vein VERENICE ROMAN DO Feb 11, 2018 20:16
--- NOTE | 2018-02-11 20:25 | Pharmacy Note ---
Pharmacy Note Date Provider Notified: Feb 11, 2018 Time Provider Notified: 20:23 Provider Notified: DR ROMAN Note: CONTACTED PROVIDER REGARDING INTERACTION WITH CARBAMAZEPINE AND RIVAROXABAN. PROVIDER STATED THAT RIVAROXABAN WAS STARTED IN THE ER FOR DVT AND HE WANTED TO CONTINUE IT UNTIL HE WAS ABLE TO ESTABLISH AN ALTERNATIVE THAT HER INSURANCE COVERED AND SHE WOULD COMPLY WITH SHE HAS A HISTORY OF NON-COMPLIANCE. TOMMY HANLEY Feb 11, 2018 20:25
[2018-02-11] MEDS ORDERED: carBAMazepine 200 MG TAB PO SCH (21:00)
[2018-02-11] MEDS: DOCUSATE SODIUM 100 MG CAP PO SCH (21:28)
[2018-02-11] MEDS: CELECOXIB 100 MG CAP PO SCH (21:28)
[2018-02-12] MEDS ORDERED: CELE-1 PO (02:11)
[2018-02-12 02:20] VITALS: BP 109/62
[2018-02-12 06:06] LABS: PLATELET COUNT, AUTOMATED 126 K/uL (150-450)
[2018-02-12 07:48] VITALS: BP 126/77
[2018-02-12] MEDS: CELECOXIB 100 MG CAP PO SCH ×2 (08:58→17:58)
[2018-02-12] MEDS: LEVOFLOXACIN 500 MG TAB PO SCH (08:58)
[2018-02-12] MEDS ORDERED: RIVAROXABAN 10 MG TAB PO SCH (09:00)
[2018-02-12] MEDS: DOCUSATE SODIUM 100 MG CAP PO SCH ×2 (09:00→21:24)
[2018-02-12 09:09] VITALS: Ht 167.6 cm; Wt 119.1 kg
--- NOTE | 2018-02-12 11:20 | Hospitalist Progress Note ---
Subjective Progress Notes Subjective No reported cp/sob. No concerns from staff. Physical Exam Vital Signs Date Time Temp Pulse Resp B/P (MAP) Pulse Ox O2 Delivery O2 Flow Rate FiO2 02/12/18 08:09 89 Room Air 02/12/18 07:48 98.3 69 18 126/77 (93) General Appearance: Alert, Awake, No Acute Distress Extremities: Edema (Diffuse chronic edema bilaterally) Integumentary: Other (erythematous area 1x3cm in medial thigh that has some tenderness to touch) Result Diagram: 02/12/1830 02/12/1830 Assessment and Plan Problems: (1) DVT (deep venous thrombosis) Status: Acute Assessment & Plan: She was found to have a clot in the left leg. She had been started on treatment with Xarelto, but will switch to Warfarin bridged with Lovenox starting tomorrow. (2) Seizure disorder Status: Chronic Assessment & Plan: She is on chronic treatment with Tegretol. (3) Pyelonephritis Status: Acute Assessment & Plan: She does have a recent history of pyelonephritis with renal stones. She is followed by Dr. Pedersen for this and he recently placed her back on levofloxacin. (4) Weakness Assessment & Plan: PT and OT have been consulted. Exam Sepsis Risk: No Definite Risk Problem Qualifiers (1) DVT (deep venous thrombosis): DVT location: lower extremity Affected thrombotic vein of extremity: femoral Chronicity: acute Laterality: left Qualified Codes: I82.412 - Acute embolism and thrombosis of left femoral vein KANDY JIMENEZ MD Feb 12, 2018 11:19
[2018-02-12 11:31] VITALS: BP 123/75
[2018-02-12] MEDS: WARFARIN SOD 5 MG TAB PO SCH (12:37)
[2018-02-12] MEDS: carBAMazepine 200 MG TAB PO SCH ×2 (14:30→21:24)
[2018-02-12 16:24] VITALS: BP 120/94
[2018-02-12 19:25] VITALS: BP 129/92
[2018-02-12] MEDS ORDERED: INFLUENZA VIRUS VAC 0.5 ML SYR IM ONLY ONE (20:05)
[2018-02-12] MEDS ORDERED: ENOXAPARIN 100 MG/ML SYR SC SCH (21:00)
[2018-02-12] MEDS: ENOXAPARIN SC SCH (21:25)
[2018-02-13 04:42] VITALS: BP 113/70
[2018-02-13 08:31] VITALS: BP 136/83
[2018-02-13] MEDS: CELECOXIB 100 MG CAP PO SCH ×2 (08:33→17:40)
[2018-02-13] MEDS: carBAMazepine 200 MG TAB PO SCH ×2 (08:33→13:59)
[2018-02-13] MEDS: ENOXAPARIN SC SCH ×2 (08:33→21:18)
[2018-02-13] MEDS: DOCUSATE SODIUM 100 MG CAP PO SCH ×2 (08:33→21:18)
[2018-02-13] MEDS: LEVOFLOXACIN 500 MG TAB PO SCH (08:33)
[2018-02-13] MEDS ORDERED: ENOXAPARIN SC SCH (09:00)
[2018-02-13] MEDS ORDERED: ENOXAPARIN 100 MG/ML SYR SC SCH (09:00)
[2018-02-13] MEDS ORDERED: METHYL SALICYLATE TOP PRN ×2 (09:30→09:35)
[2018-02-13] MEDS ORDERED: MENTHOL TOP PRN ×2 (09:30→09:35)
--- NOTE | 2018-02-13 09:54 | Hospitalist Progress Note ---
Subjective Progress Notes Subjective She reports feeling improved. Less pain. Physical Exam Vital Signs Date Time Temp Pulse Resp B/P (MAP) Pulse Ox O2 Delivery O2 Flow Rate FiO2 02/13/18 08:39 93 02/13/18 08:39 Room Air 02/13/18 08:31 97.7 68 16 136/83 (100) Intake and Output 02/14/18 07:00 # Voids 1 General Appearance: Alert, Awake Cardiovascular: Regular Rate and Rhythm Respiratory: Clear to Auscultation GI: Soft and Non-Tender Extremities: Warm, Perfused, Edema (slightly worse on left as compared to right (she reports this has been chronic)), Other (chronic changes both feet/ legs) Psych: Alert & Oriented X3 Result Diagram: 02/12/1852902/12/18529 Assessment and Plan Problems: (1) DVT (deep venous thrombosis) Status: Acute Assessment & Plan: She was found to have a DVT in the left leg. She had been started on treatment with Xarelto, but we switched to Warfarin bridged with Lovenox. Will monitor daily protime/INR. (2) Seizure disorder Status: Chronic Assessment & Plan: She is on chronic treatment with Tegretol. (3) Pyelonephritis Status: Acute Assessment & Plan: She does have a recent history of pyelonephritis with renal stones. She is followed by Dr. Pedersen for this and he recently placed her back on levofloxacin. (4) Weakness Assessment & Plan: PT and OT are seeing her for mobility/strengthening. She is planning on transfer to rehab facility. Exam Sepsis Risk: No Definite Risk Problem Qualifiers (1) DVT (deep venous thrombosis): DVT location: lower extremity Affected thrombotic vein of extremity: femoral Chronicity: acute Laterality: left Qualified Codes: I82.412 - Acute embolism and thrombosis of left femoral vein TUAN BRICE MD Feb 13, 2018 09:54
[2018-02-13] MEDS: LIDOCAINE 5% PATCH TP SCH (11:04)
[2018-02-13 11:07] VITALS: BP 122/68
[2018-02-13] MEDS: WARFARIN SOD 5 MG TAB PO SCH (12:47)
[2018-02-13] MEDS: ACETAMINOPHEN 325 MG TAB PO PRN ×2 (13:06→22:25)
[2018-02-13 15:47] VITALS: BP 131/85
[2018-02-13 18:47] VITALS: BP 128/81
[2018-02-13] MEDS: PATCH REMOVAL 1 EA TP SCH (21:00)
[2018-02-13] MEDS: CARBAMAZEPINE 200 MG TAB PO SCH (21:18)
[2018-02-14 04:32] VITALS: BP 127/67
[2018-02-14 06:24] LABS: INR 1.07
[2018-02-14 06:26] LABS: PLATELET COUNT, AUTOMATED 122 K/uL (150-450)
[2018-02-14] MEDS: CELECOXIB 100 MG CAP PO SCH ×2 (09:12→17:41)
[2018-02-14] MEDS: ACETAMINOPHEN 325 MG TAB PO PRN ×3 (09:12→23:49)
[2018-02-14] MEDS: LEVOFLOXACIN 500 MG TAB PO SCH (09:12)
[2018-02-14] MEDS: DOCUSATE SODIUM 100 MG CAP PO SCH ×2 (09:12→20:36)
[2018-02-14] MEDS: ENOXAPARIN SC SCH ×2 (09:13→20:37)
[2018-02-14] MEDS: LIDOCAINE 5% PATCH TP SCH (09:13)
[2018-02-14] MEDS: CARBAMAZEPINE 200 MG TAB PO SCH ×3 (09:13→20:36)
[2018-02-14 09:16] VITALS: BP 120/84
--- NOTE | 2018-02-14 10:27 | Hospitalist Progress Note ---
Subjective Progress Notes Subjective This patient was admitted for a DVT. She had no acute events overnight. Patient Complains of: Cardiovascular: No: Chest Pain Respiratory: No: Shortness of Breath Physical Exam Vital Signs Date Time Temp Pulse Resp B/P (MAP) Pulse Ox O2 Delivery O2 Flow Rate FiO2 02/14/18 09:16 98.7 72 16 120/84 (96) 92 Room Air Cardiovascular: Regular Rate and Rhythm Respiratory: Clear to Auscultation Extremities: Edema Integumentary: No Cyanosis Result Diagram: 02/14/1828 02/14/1828 Item Value Date Time Prothromb Time International Ratio 1.07 02/14/18527 Assessment and Plan Problems: (1) DVT (deep venous thrombosis) Status: Acute Assessment & Plan: She was found to have a DVT in the left leg. She is on treatment with Lovenox and warfarin. Her INR remains low at day 3 of therapy. We have dosed her an additional 2.5mg of warfarin today. Daily INR monitoring has been ordered. (2) Seizure disorder Status: Chronic Assessment & Plan: She is on chronic treatment with Tegretol. (3) Pyelonephritis Status: Acute Assessment & Plan: She does have a recent history of pyelonephritis with renal stones. She is followed by Dr. Pedersen for this and he recently placed her back on levofloxacin. (4) Weakness Assessment & Plan: Physical and occupational therapy have recommended ongoing rehab. She is scheduled to discharge to a rehab facility in the morning. Exam Sepsis Risk: No Definite Risk Problem Qualifiers (1) DVT (deep venous thrombosis): DVT location: lower extremity Affected thrombotic vein of extremity: femoral Chronicity: acute Laterality: left Qualified Codes: I82.412 - Acute embolism and thrombosis of left femoral vein VERENICE ROMAN DO Feb 14, 2018 10:27
[2018-02-14] MEDS ORDERED: WARFARIN SOD 2.5 MG TAB PO ONE (13:00)
[2018-02-14] MEDS: WARFARIN SOD 5 MG TAB PO SCH (13:32)
[2018-02-14 19:28] VITALS: BP_SYST 120; BP_SYST 140; BP_DIAS 75; BP_DIAS 84
[2018-02-14] MEDS: PATCH REMOVAL 1 EA TP SCH (21:00)
[2018-02-14 23:52] VITALS: BP 138/59
[2018-02-15] MEDS ORDERED: WARF-1 PO (05:09)
[2018-02-15] MEDS ORDERED: ENOX120D5 SQ (05:09)
--- NOTE | 2018-02-15 05:13 | Hospitalist Depart ---
Discharge Summary Reason for Hosp/Final Diag: (1) DVT (deep venous thrombosis) Status: Acute Hospital Course & Plan: She was found to have a DVT in the left leg. She is on treatment with Lovenox and warfarin. She will need to continue the Lovenox until her warfarin dosing is therapeutic. She will need to remain on lifelong anticoagulation. (2) Seizure disorder Status: Chronic Hospital Course & Plan: She is on chronic treatment with Tegretol. (3) Pyelonephritis Status: Acute Hospital Course & Plan: She does have a recent history of pyelonephritis with renal stones. She is followed by Dr. Pedersen for this and he recently placed her back on levofloxacin. (4) Weakness Hospital Course & Plan: Physical and occupational therapy have recommended ongoing rehab. Departure Latest Vital Signs Vital Signs 02/14/18 23:52 Temp 98.1 Pulse 68 Resp 16 B/P (MAP) 138/59 (85) Pulse Ox 94 O2 Delivery Room Air Weight (Pounds): 262 Weight (Ounces): 8.0 Result Diagram: 02/14/18 0528 02/14/1828 Condition: Improved Discharge: [facility] PT/OT Follow Up For: PT Evaluation and Treat, OT Evaluation and Treat Follow-Up Labs: INR (02/16/2018) Discharge Instructions Home Meds Active Scripts Enoxaparin Sodium (LOVENOX) 120 Mg/0.8 Ml Disp.syrin, 120 MG SQ Q12H, #4 SYR Prov:VERENICE ROMAN DO 02/15/18 Warfarin Sodium (COUMADIN) 5 Mg Tablet, 5 MG PO QDAY@13, #30 TAB Prov:VERENICE ROMAN DO 02/15/18 Docusate Sodium (DOCUSATE SODIUM) 100 Mg Capsule, 100 MG PO BID for 30 Days, CAPSULE Prov:SHANNON CARVALHO MD 01/12/18 Calcium Carb/Mag Oxide/Vit D3 (CALCIUM MAGNESIUM + D TABLET) 1 Each Tablet, 1 EA PO BIDBS@1000,1700 for 30 Days, #30 TAB Prov:SHANNON CARVALHO MD 01/12/18 Reported Medications Oxybutynin Chloride (DITROPAN XL) 10 Mg Tab.er.24, 10 MG PO QDAY Y for BLADDER SPASMS, #30 TAB 02/09/18 Levofloxacin 500 Mg Tab (LEVAQUIN 500 MG TAB) 500 Mg Tablet, 500 MG PO QDAY, #7 TAB 02/09/18 Lidocaine (Lidocaine) 5 % Adh..patch, 1 TD QDAY 02/08/18 Multivit, Iron, Min #5, Fa (STROVITE FORTE CAPLET) 1 Each Tablet, 1 EACH PO QDAY 12/20/17 Carbamazepine (TEGretol (OR EQUIV)) 200 Mg Tab, 200 MG PO TID Seizure Disorder Brand name Tegretol ONLY 10/23/12 Discontinued Reported Medications Celecoxib (CELEBREX) 200 Mg Capsule, 100 MG PO BID, CAPSULE 02/12/18 Docusate Sodium (COLACE) 100 Mg Capsule, 100 MG PO BID, #30 CAPSULE 02/09/18 Folic Acid/Vitamin B Comp W-C (FOLBEE PLUS TABLET) 5 Mg Tablet, 5 MG PO QDAY 02/08/18 Meloxicam (MELOXICAM) 7.5 Mg Tablet, 7.5 MG PO BID 02/08/18 Glucosamine/Msm/Chondroitin A (GLUCOSAMINE CHONDROIT MSM TAB) 1 Each Tablet, 1 TAB PO TID 12/20/17 Diclofenac Sodium 1% Gel (VOLTAREN 1% GEL) 100 Gm Gel..gram., 4 GM TOP QID Apply to affected lower extremities 4 times daily 12/20/17 Meloxicam (Mobic) 15 Mg Tablet, 1 TAB PO BID 10/23/12 Discontinued Scripts Acetaminophen (ACETAMINOPHEN) 500 Mg Tablet, 1000 MG PO Q8H Y for PAIN for 30 Days, #90 TAB Prov:SHANNON CARVALHO MD 01/12/18 Parsley/Garlic (GARLIC & PARSLEY TABLET) 1 Each Tablet, 2 CAP PO 1700 for 30 Days, #60 CAP Prov:SHANNON CARVALHO MD 01/12/18 Vitamin E (VITAMIN E) 400 Intlu Cap, 400 INTLU PO QDAY@1000 for 30 Days, CAP Prov:SHANNON CARVALHO MD 01/12/18 Diet: Regular Activity: As Tolerated Copies to: BURKE SHANE DO Venous Thromboembolism Antithrombotics Is Pt On Any Antithrombotics?: Yes Problem Qualifiers (1) DVT (deep venous thrombosis): DVT location: lower extremity Affected thrombotic vein of extremity: femoral Chronicity: acute Laterality: left Qualified Codes: I82.412 - Acute embolism and thrombosis of left femoral vein VERENICE ROMAN DO Feb 15, 2018 05:13
[2018-02-15 05:38] LABS: INR 1.22
[2018-02-15] MEDS: CARBAMAZEPINE 200 MG TAB PO SCH (05:52)
[2018-02-15] MEDS: DOCUSATE SODIUM 100 MG CAP PO SCH (05:52)
[2018-02-15] MEDS: LEVOFLOXACIN 500 MG TAB PO SCH (05:53)
[2018-02-15] MEDS: ENOXAPARIN SC SCH (05:53)
[2018-02-15] MEDS: CELECOXIB 100 MG CAP PO SCH (05:53)
[2018-02-15] MEDS: ACETAMINOPHEN 325 MG TAB PO PRN (05:54)
[2018-02-15] MEDS: LIDOCAINE 5% PATCH TP SCH (05:54)
== END 2018-02-15 05:09 ==
LOC: ER 16:04 → MED 18:07 → INTOOBSV 18:07
PROVIDERS: ADMIT Family Medicine; ATTEND Family Medicine
DX: I82.412 Acute embolism and thrombosis of left femoral vein (principal); G40.909 Epilepsy, unspecified, not intractable, without status epilepticus; N20.0 Calculus of kidney; R53.1 Weakness
CPT/HCPCS: 36415; 73502; 85025; 85610; 85730; 93971; 96372; 97116; 97161; 97166; 97530; 97535; 99285; A9270; G0378; J1650; 82040; 82247; 82310; 82374; 82435; 82565; 82947; 84075; 84132; 84155; 84295; 84450; 84460; 84520

== ENCOUNTER → 2018-02-11 | Outpatient (CLI) | payer MEDICARE, MEDICAID ==
[~2018-02-11] MED LIST changes: +CELE-1 PO; +DOCU-416 PO; +ENOX120D5 SQ; +FOLI5TAB PO; +LIDO700A19 TD; +MELO-205 PO; +OXYB10TA21 PO; +WARF-1 PO
[2018-02-12 09:09] VITALS: BMI 42.3
== END ==
LOC: AMB 15:07
PROVIDERS: ATTEND Nurse Practitioner
DX: M25.552 Pain in left hip (principal); R53.1 Weakness; M79.661 Pain in right lower leg
CPT/HCPCS: A0425; A0429

== ENCOUNTER → 2018-11-11 | Outpatient (REF) | payer MEDICARE, MEDICAID ==
[2018-02-12 09:09] VITALS: BMI 42.3
[~2018-11-11] MED LIST changes: +CELE-1 PO; +ENOX120D5 SQ; +WARF-1 PO
== END ==
LOC: ZZLCC 08:26
PROVIDERS: ATTEND Family Medicine
DX: N39.0 Urinary tract infection, site not specified (principal); R82.79 Other abnormal findings on microbiological examination of urine
CPT/HCPCS: 81001; 87088